=== PATIENT | female | born 1950 | race Caucasian/White ===

== ENCOUNTER 2018-04-20 07:02 | Day surgery (SDC) | payer MEDICARE, MEDICAID ==
[~2018-04-20] VITALS: Ht 160 cm; Wt 92.5 kg
[2018-04-20] VITALS (10 sets, daily range): BP systolic 136–196; BP diastolic 73–104
[~2018-04-20 07:02] MED LIST: ACET-819 PO; ARGI500C2 PO; ASCO-262 PO; CALC-685 PO; FLUO40CA PO; HYDR-3583 PO; LISI10TA PO; LVT.1T PO; MELO-195 PO; MULT1CAP27 PO; OMG1KC PO; OXYB10TA PO; PRAS1TAB2 PO; ZINC50TA49 PO
[2018-04-20] MEDS ORDERED: LIDOCAINE 1% INJ 20 ML 20 ML VIAL ONE (07:07)
[2018-04-20] MEDS ORDERED: NS IV 1000 ML 1,000 ML ONE (07:07)
[2018-04-20] MEDS ORDERED: HEParin (CATH LAB) 2,000 ML IV ONE (07:07)
[2018-04-20] MEDS ORDERED: NS IV 1000 ML 1,000 ML IV SCH ×2 (07:15→09:14)
[2018-04-20 07:43] LABS: HEMOGLOBIN 13.2 G/DL (11.5-16.0); MEAN PLATELET VOLUME 10.9 FL (7.4-10.4); RED BLOOD COUNT 4.39 10^6/uL (4.35-5.85); WHITE BLOOD COUNT 6.7 10^3/uL (4.3-11.0)
[2018-04-20] MEDS ORDERED: IBUP-2185 PO (07:46)
[2018-04-20] MEDS ORDERED: RANI-515 PO (07:46)
[2018-04-20] MEDS ORDERED: LISI1TAB10 PO (07:46)
[2018-04-20] MEDS ORDERED: ATOR40TA70 PO (07:46)
[2018-04-20] MEDS ORDERED: LEVO112T55 PO (07:46)
[2018-04-20] MEDS ORDERED: BIOT10005 PO (07:46)
[2018-04-20] MEDS ORDERED: ASPI-983 PO (07:46)
[2018-04-20] MEDS ORDERED: FEXO-192 PO (07:46)
[2018-04-20] MEDS ORDERED: NF-SOLIF5T PO (07:46)
[2018-04-20] MEDS ORDERED: ACET-2055 PO (07:46)
[2018-04-20] MEDS ORDERED: SERT25TA5 PO (07:46)
[2018-04-20] MEDS ORDERED: COLE1TAB PO (07:46)
[2018-04-20 08:04] LABS: ALANINE AMINOTRANSFERASE 14 U/L (0-55); ALBUMIN 4.6 GM/DL (3.2-4.5); ALKALINE PHOSPHATASE 66 U/L (40-136); BILIRUBIN,TOTAL 0.8 MG/DL (0.1-1.0); BUN/CREATININE RATIO 17; CALCIUM 9.1 MG/DL (8.5-10.1); CARBON DIOXIDE 25 MMOL/L (21-32); CHLORIDE 105 MMOL/L (98-107); CHOLESTEROL 127 MG/DL (< 200); CREATININE SERUM 0.77 MG/DL (0.60-1.30); GFR ESTIMATED > 60; GLUCOSE 92 MG/DL (70-105); HDL CHOLESTEROL 40 MG/DL (40-60); POTASSIUM 3.7 MMOL/L (3.6-5.0); SODIUM 142 MMOL/L (135-145); TOTAL PROTEIN 7.3 GM/DL (6.4-8.2); TRIGLYCERIDES 191 MG/DL (<150); VLDL CHOLESTEROL 38 MG/DL (5-40)
[2018-04-20 08:07] LABS: INR 0.9 (0.8-1.4); PROTHROMBIN TIME PATIENT 12.6 SEC (12.2-14.7)
--- OUTSIDE RECORDS SUMMARY | 2018-04-20 08:16 | XMS REPORT ---
Author Author ETHAN MARTINO [facility] Address [address] [place] [address] Care Team Providers Care Maintenance Team Leader Name Role Phone ETHAN MARTINO Unavailable PROBLEMS Type Condition ICD9-CM Code LJP10-SF Code Onset Dates Condition Status SNOMED Code Problem Irritable bowel syndrome with diarrhea K58.0 Active 128321402 Problem Gastroesophageal reflux disease without esophagitis K21.9 Active 835916610 Problem Sciatica of left side M54.32 Active 16917324 Problem PVD (peripheral vascular disease) I73.9 Active 956518573 Problem Essential (primary) hypertension I10 Active 05934297 Problem Other chronic pain G89.29 Active 50869962 Problem Acquired hypothyroidism E03.9 Active 612187199 Problem Hypertriglyceridemia E78.1 Active 254449855 Problem Pain in joint of right shoulder M25.511 Active 850074593 Problem Recurrent major depressive disorder, in partial remission F33.41 Active 23183017 Problem Overactive bladder N32.81 Active 689053186 ALLERGIES No Information ENCOUNTERS Encounter Location Date Diagnosis [facility] [address] [place] [address] 13521- 4892 Feb, Bradycardia R00.1 ; Hypotension I95.9 ; Family history of heart disease Z82.49 and Essential (primary) hypertension I10 [facility] [address] [place] [address] 68140- 1444 Feb, Hypertriglyceridemia E78.1 ; Acquired hypothyroidism E03.9 ; Overactive bladder N32.81 ; Essential (primary) hypertension I10 and Recurrent major depressive disorder, in partial remission F33.41 [facility] [address] [place] [address] 62060- 4901 Jan, [facility] [id number] [place] [address] 09310- 5241 Oct, [facility] [address], [place] [address] 5499 Oct, [facility] [id number] [place] [address] 56573- 1817 Oct, Overactive bladder N32.81 [facility] [id number] [place] [address] 83477- 0969 Sep, [facility] [id number] [place] [address] 23652- 2907 Sep, [facility] [id number] [place] [address] 43745- 9930 Sep, Essential (primary) hypertension I10 ; Acquired hypothyroidism E03.9 ; Hypertriglyceridemia E78.1 ; Overactive bladder N32.81 ; Irritable bowel syndrome with diarrhea K58.0 ; Recurrent major depressive disorder, in partial remission F33.41 ; Pain in right shoulder M25.511 ; Other chronic pain G89.29 ; Low back pain M54.5 ; Reactive airway disease that is not asthma R09.89 and Encounter for immunization Z23 [facility] [id number] [place] [address] 69556- 7331 August, Hypertriglyceridemia E78.1 [facility] [id number] [place] [address] 41365 -3563 Jun, Cough R05 and Bronchitis J40 [facility] [id number] [place] [address] 49185- 4243 Jun, [facility] [id number] [place] [address] 01502- 7222 Jan, Hypothyroid E03.9 ; Depression F32.9 ; PVD (peripheral vascular disease) I73.9 ; Essential (primary) hypertension I10 ; Irritable bowel syndrome with diarrhea K58.0 ; Gastroesophageal reflux disease without esophagitis K21.9 ; Hypertriglyceridemia E78.1 ; Sciatica of left side M54.32 ; Elevated hemoglobin A1c R73.09 ; Overactive bladder N32.81 and Encounter for immunization Z23 [facility] [id number] [place] [address] 64916- 2002 Sep, [facility] [address] 11809- 2835 Sep, Hypothyroid E03.9 ; Depression F32.9 ; PVD (peripheral vascular disease) I73.9 ; Hypertension I10 ; Essential (primary) hypertension I10 ; Edema R60.9 ; Irritable bowel syndrome with diarrhea K58.0 ; Gastroesophageal reflux disease without esophagitis K21.9 ; Pain in joint of right shoulder M25.511 ; Hypercholesterolemia E78.0 and Tooth abscess K04.7 [facility] [address] 35395- 2426 August, Essential (primary) hypertension I10 ; Hypothyroid E03.9 ; Irritable bowel syndrome with diarrhea K58.0 and Hypercholesterolemia E78.0 [facility] [id number] [place] [address] 70826- 0093 May, Hypothyroid E03.9 ; PVD (peripheral vascular disease) I73.9 ; Hypertension I10 ; Irritable bowel syndrome with diarrhea K58.0 ; Edema R60.9 ; Essential (primary) hypertension I10 ; Hypercholesterolemia E78.0 ; Depression F32.9 and Gastroesophageal reflux disease without esophagitis K21.9 [facility] [id number] [place] [address] 77694- 2926 Mar, [facility] [id number] [place] [address] 29540- 0034 Jan, [facility] [id number] [place] [address] 65646- 9988 30 Dec, 2015 Hypothyroid E03.9 ; Depression F32.9 ; Hypercholesterolemia E78.0 ; PVD (peripheral vascular disease) I73.9 ; Hypertension I10 ; Essential ( primary) hypertension I10 ; Edema R60.9 ; Sciatica of left side M54.32 ; Irritable bowel syndrome with diarrhea K58.0 and Encounter for immunization Z23 [facility] [address], [place] [address] 4912 Dec, [facility] [id number] [place] [address] 91603- 7309 Dec, [facility] [address] [place] [address] 09244- 8539 Dec, [facility] [id number] [place] [address] 28359- 3412 Dec, Adverse drug reaction, initial encounter T88.7XXA and Sciatica of left side M54.32 [facility] [id number] [place] [address] 46337- 5895 Nov, [facility] [id number] [place] [address] 68087- 8701 Nov, [facility] [id number] [place] [address] 71603- 8709 Nov, [facility] [id number] [place] [address] 54448- 2013 Oct, [facility] [id number] [place] [address] 41241- 4261 Oct, Sciatica of left side M54.32 and Irritable bowel syndrome with diarrhea K58.0 [facility] [address] [place] [address] 48835- 4483 Jun, Hypercholesterolemia E78.0 ; Hypothyroid E03.9 ; Essential ( primary) hypertension I10 ; Depression F32.9 ; PVD (peripheral vascular disease ) I73.9 ; Decubital ulcer L89.90 and Edema R60.9 [facility] [id number] [place] [address] 37978- 6401 May, [facility] [address], [place] [address]- 1163 May, PVD (peripheral vascular disease) I73.9 and Decubital ulcer L89.90 [facility] [id number] [place] [address] 39390- 3672 May, PVD (peripheral vascular disease) I73.9 ; Cellulitis L03.90 ; Hypothyroid E03.9 ; Hypercholesterolemia E78.0 ; Hypertension I10 and Depression F32.9 [facility] [id number] [place] [address] 72003- 8548 Jan, [facility] [address] 24273- 5356 Jan, [facility] [id number] [place] [address] 45629- 6830 Jan, HTN (hypertension) I10 ; Encounter for immunization Z23 ; Hypothyroid E03.9 ; Hypercholesterolemia E78.0 and Depression F32.9 [facility] [id number] [place] [address] [id number] Jan, Dental examination Z01.20 [facility] [id number] [place] [address] 70986- 0087 Oct, [facility] [id number] [place] [address] 38798- 9670 Oct, [facility] [id number] [place] [address] 72765- 9815 Oct, Hypothyroidism 244.9 ; Essential hypertension 401.9 ; Depression 311 ; Varicose ulcer (lower extremity) 454.0 and Hypercholesteremia 272.0 [facility] [id number] [place] [address] 44603- 9784 Jul, [facility] [id number] [place] [address] 83772- 3097 Jul, [facility] [id number] [place] [address] 27209- 4497 Feb, [facility] [id number] [place] [address] 15980- 7628 Feb, [facility] [address] [address] [address]- 1447 Feb, [facility] [place] [facility] [address] [id number] [place] [address]- 3304 Feb, [facility] [place] [facility] [address] [id number] [place] [address]- 0379 Feb, [facility] [place] [facility] [address] [id number] [place] [address]- 9296 Feb, [facility] [place] [facility] [address] [id number] [place] [address]- 5004 Nov, [facility] [place] [facility] [address] [id number] [place] [address]- 3850 Nov, [facility] [place] [facility] [address] [id number] [place] [address]- 2256 Nov, [facility] [place] [facility] [address] [id number] [place] [address]- 2399 Nov, [facility] [place] [facility] [address] [id number] [place] [address]- 5166 Nov, [facility] [place] [facility] [address] [id number] [place] [address]- 9617 Nov, [facility] [place] [facility] [address] [id number] [place] [address]- 8412 Nov, [facility] [place] [facility] [address] [id number] [place] [address]- 8584 Nov, [facility] [place] [facility] [address] [id number] [place] [address]- 4543 Nov, [facility] [place] [facility] [address] [id number] [place] [address]- 3389 Nov, [facility] [place] [facility] [address] [id number] [place] [address]- 6755 August, [facility] [place] [facility] [address] [id number] [place] [address]- 4294 August, [facility] [place] [facility] [address] [id number] [place] [address]- 9803 Oct, [facility] [address] [id number] [place] [address]- 6047 Jul, [facility] [address] [id number] [place] [address]- 2790 Jul, [facility] [address] [id number] [place] [address]- 0061 Jul, [facility] [address] [id number] [place] [address]- 5349 Jul, [facility] [address] [id number] [place] [address]- 2239 Jun, [facility] [address] [id number] [place] [address]- 9753 Jun, [facility] [address] [id number] [place] [address]- 5666 Jun, [facility] [address] [id number] [place] [address]- [address] Jun, [facility] [address] [id number] [place] [address]- 1605 Jun, [facility] [address] [id number] [place] [address]- 2143 May, [facility] [address] [id number] [place] [address]- 1460 Apr, [facility] [address] [id number] [place] [address]- 7898 Apr, [facility] [address] [id number] [place] [address]- 2893 Apr, [facility] [address] [id number] [place] [address]- 9369 Apr, [facility] [address] [id number] [place] [address]- 1391 Mar, [facility] [place] [facility] [address] [id number] [place] [address]- 9866 19 Mar, 2012 [facility] [place] [facility] [address] [id number] [place] [address]- 6496 18 Mar, 2012 [facility] [place] [facility] [address] [id number] [place] [address]- 7976 18 Mar, 2012 [facility] [place] [facility] [address] [id number] [place] [address]- 8226 14 Mar, 2012 [facility] [place] [facility] [address] [id number] [place] [address]- 4486 14 Mar, 2012 [facility] [place] [facility] [address] [id number] [place] [address]- 3216 Mar, [facility] [place] [facility] [address] [id number] [place] [address]- 4309 Mar, [facility] [place] [facility] [address] [id number] [place] [address]- 5685 Mar, [facility] [place] [facility] [address] [id number] [place] [address]- 9457 Mar, [facility] [place] [facility] [address] [id number] [place] [address]- 0322 Mar, [facility] [place] [facility] [address] [id number] [place] [address]- 3359 Mar, [facility] [place] [facility] [address] [id number] [place] [address]- 3648 Mar, [facility] [place] [facility] [address] [id number] [place] [address]- 2036 Feb, [facility] [place] [facility] [address] [id number] [place] [address]- 0135 Feb, [facility] [place] [facility] [address] [id number] [place] [address]- 2673 Feb, [facility] [place] [facility] [address] [id number] [place] [address]- 0927 Feb, [facility] [place] [facility] [address] [id number] [place] [address]- 7124 Feb, [facility] [place] [facility] [address] [id number] [place] [address]- 7893 Feb, [facility] [place] [facility] [address] [id number] [place] [address]- 9397 Feb, [facility] [place] [facility] [address] [id number] [place] [address]- 9712 Feb, [facility] [place] [facility] [address] [id number] [place] [address]- 4664 Feb, [facility] [place] [facility] [address] [id number] [place] [address]- 5295 Feb, [facility] [place] [facility] [address] [id number] [place] [address]- 6834 Feb, [facility] [place] [facility] [address] [id number] [place] [address]- 6869 Feb, [facility] [place] [facility] [address] [id number] [place] [address]- 5892 Feb, [facility] [place] [facility] [address] [facility] [id number] [place] [address]- 5127 Feb, [facility] [place] [facility] [address] [id number] [place] [address]- 4907 Jan, [facility] [place] [facility] [address] [id number] [place] [address]- 0395 Jan, [facility] [place] [facility] [address] [id number] [place] [address]- 0943 Jan, [facility] [place] [facility] [address] [id number] [place] [address]- 8547 Jan, [facility] [place] [facility] [address] [id number] [place] [address]- 6780 Jan, [facility] [id number] [address]- 3474 Jan, [facility] [address] [place] [address]- 5198 Jan, [facility] [address], [place] [address]- 2038 Oct, [facility] [address], [place] [address]- 7850 Oct, [facility] [address] [place] [address]- 8414 Oct, [facility] [address], [place] [address]- 6736 Jul, [facility] [address], [place] [address]- 1617 Jan, [facility] [address], [place] [address]- 8966 Jul, IMMUNIZATIONS No Known Immunizations SOCIAL HISTORY Never Assessed REASON FOR VISIT request return call PLAN OF CARE VITAL SIGNS MEDICATIONS Medication Instructions Dosage Frequency Start Date End Date Duration Status Lisinopril-Hydrochlorothiazide 20-25 mg Orally every other day TAKE ONE TABLET BY MOUTH ONCE DAILY Active RESULTS No Results PROCEDURES No Known procedures INSTRUCTIONS MEDICATIONS ADMINISTERED No Known Medications MEDICAL (GENERAL) HISTORY Type Description Date Medical History Hypothyroidism Medical History hypertension Medical History asthma Surgical History cholecystectomy Surgical History tubal ligation Surgical History vein ligation Surgical History thyroidectomy, complete Hospitalization History surgeries
--- OUTSIDE RECORDS SUMMARY | 2018-04-20 08:16 | XMS REPORT ---
Author Author [facility] Address [address] [place] [address] Care Team Providers Care Flight Attendant Name Role Phone ETHAN MARTINO Unavailable PROBLEMS Type Condition ICD9-CM Code NDC40-XQ Code Onset Dates Condition Status SNOMED Code Problem Irritable bowel syndrome with diarrhea K58.0 Active 198307508 Problem Gastroesophageal reflux disease without esophagitis K21.9 Active 992919240 Problem Sciatica of left side M54.32 Active 68302386 Problem PVD (peripheral vascular disease) I73.9 Active 543411979 Problem Essential (primary) hypertension I10 Active 50497097 Problem Other chronic pain G89.29 Active 32975808 Problem Acquired hypothyroidism E03.9 Active 898489063 Problem Hypertriglyceridemia E78.1 Active 187948062 Problem Pain in joint of right shoulder M25.511 Active 974694991 Problem Recurrent major depressive disorder, in partial remission F33.41 Active 25929818 Problem Overactive bladder N32.81 Active 965251792 ALLERGIES Substance Reaction Event Type Date Status Vistaril hives Drug Allergy Feb, Active Vaseline itching Drug Allergy Feb, Active Neosporin hives Drug Allergy Feb, Active Nabumetone hives/rash Drug Allergy Feb, Active ENCOUNTERS Encounter Location Date Diagnosis [facility] [id number] [place] [address] 17912- 8680 Feb, Hypertriglyceridemia E78.1 ; Acquired hypothyroidism E03.9 ; Overactive bladder N32.81 ; Essential (primary) hypertension I10 and Recurrent major depressive disorder, in partial remission F33.41 [facility] [id number] [place] [address] 61677- 2581 Jan, [facility] [id number] [place] [address] 06364- 2393 Oct, [facility] [address] [address] 6962 Oct, [facility] [id number] [place] [address] 31959- 5541 Oct, Overactive bladder N32.81 [facility] [address] [place] [address] 90318- 7787 Sep, [facility] [id number] [place] [address] 37817- 8625 Sep, [facility] [id number] [place] [address] 24547- 8282 Sep, Essential (primary) hypertension I10 ; Acquired hypothyroidism E03.9 ; Hypertriglyceridemia E78.1 ; Overactive bladder N32.81 ; Irritable bowel syndrome with diarrhea K58.0 ; Recurrent major depressive disorder, in partial remission F33.41 ; Pain in right shoulder M25.511 ; Other chronic pain G89.29 ; Low back pain M54.5 ; Reactive airway disease that is not asthma R09.89 and Encounter for immunization Z23 [place] [id number] [place] [address] 01277- 3082 August, Hypertriglyceridemia E78.1 [facility] [id number] [place] [address] 15323 -6587 Jun, Cough R05 and Bronchitis J40 [place] [id number] [place] [address] 87415- 0599 Jun, [place] [address] [place] [address] 15385- 2167 Jan, Hypothyroid E03.9 ; Depression F32.9 ; PVD (peripheral vascular disease) I73.9 ; Essential (primary) hypertension I10 ; Irritable bowel syndrome with diarrhea K58.0 ; Gastroesophageal reflux disease without esophagitis K21.9 ; Hypertriglyceridemia E78.1 ; Sciatica of left side M54.32 ; Elevated hemoglobin A1c R73.09 ; Overactive bladder N32.81 and Encounter for immunization Z23 [place] [id number] [place] [address] 60008- 5183 Sep, [place] [address] 26018- 6527 Sep, Hypothyroid E03.9 ; Depression F32.9 ; PVD (peripheral vascular disease) I73.9 ; Hypertension I10 ; Essential (primary) hypertension I10 ; Edema R60.9 ; Irritable bowel syndrome with diarrhea K58.0 ; Gastroesophageal reflux disease without esophagitis K21.9 ; Pain in joint of right shoulder M25.511 ; Hypercholesterolemia E78.0 and Tooth abscess K04.7 [place] [address] 73303- 0420 August, Essential (primary) hypertension I10 ; Hypothyroid E03.9 ; Irritable bowel syndrome with diarrhea K58.0 and Hypercholesterolemia E78.0 [place] [id number] [place] [address] 58144- 2719 May, Hypothyroid E03.9 ; PVD (peripheral vascular disease) I73.9 ; Hypertension I10 ; Irritable bowel syndrome with diarrhea K58.0 ; Edema R60.9 ; Essential (primary) hypertension I10 ; Hypercholesterolemia E78.0 ; Depression F32.9 and Gastroesophageal reflux disease without esophagitis K21.9 [place] [id number] [place] [address] 26628- 7433 Mar, [place] [id number] [place] [address] 25919- 1699 Jan, [place] [id number] [place] [address] 10618- 3630 30 Dec, 2015 Hypothyroid E03.9 ; Depression F32.9 ; Hypercholesterolemia E78.0 ; PVD (peripheral vascular disease) I73.9 ; Hypertension I10 ; Essential ( primary) hypertension I10 ; Edema R60.9 ; Sciatica of left side M54.32 ; Irritable bowel syndrome with diarrhea K58.0 and Encounter for immunization Z23 [place] [address] [place] [address] 39[address] Dec, [facility] [address] [address] 3584 Dec, [facility] [address] [address]- 0786 Dec, [facility] [id number] [place] [address] 48916- 6965 Dec, Adverse drug reaction, initial encounter T88.7XXA and Sciatica of left side M54.32 [facility] [address] [address]- 8673 Nov, [facility] [id number] [place] [address] 98654- 8181 Nov, [facility] [id number] [place] [address] 07708- 2640 Nov, [facility] [id number] [place] [address] 54673- 2048 Oct, [facility] [address] [place] [address] 03379- 4048 Oct, Sciatica of left side M54.32 and Irritable bowel syndrome with diarrhea K58.0 [facility] [address] [address]- 5949 Jun, Hypercholesterolemia E78.0 ; Hypothyroid E03.9 ; Essential ( primary) hypertension I10 ; Depression F32.9 ; PVD (peripheral vascular disease ) I73.9 ; Decubital ulcer L89.90 and Edema R60.9 [facility] [address] [address]- 8090 May, [facility] [address] [address]- 7514 May, PVD (peripheral vascular disease) I73.9 and Decubital ulcer L89.90 [facility] [id number] [place] [address] 88092- 2412 May, PVD (peripheral vascular disease) I73.9 ; Cellulitis L03.90 ; Hypothyroid E03.9 ; Hypercholesterolemia E78.0 ; Hypertension I10 and Depression F32.9 [facility] [id number] [place] [address] 15622- 3163 Jan, [facility] [address] 39770- 4063 Jan, [facility] [address] 36144- 9656 Jan, HTN (hypertension) I10 ; Encounter for immunization Z23 ; Hypothyroid E03.9 ; Hypercholesterolemia E78.0 and Depression F32.9 [facility] [id number] [place] [address] [id number] Jan, Dental examination Z01.20 [facility] [address] 33639- 0521 Oct, [facility] [address] 86721- 4926 Oct, [facility] [id number] [place] [address] 69685- 1920 Oct, Hypothyroidism 244.9 ; Essential hypertension 401.9 ; Depression 311 ; Varicose ulcer (lower extremity) 454.0 and Hypercholesteremia 272.0 [facility] [id number] [place] [address] 07408- 9408 Jul, [facility] [address] 71870- 9973 Jul, [facility] [address] 84113- 0302 Feb, [facility] [id number] [place] [address] 70925- 3936 Feb, [facility] [address] 58787- 9879 Feb, [facility] [place] [facility] [address] [id number] [place] [address]- 4765 Feb, [facility] [place] [facility] [address] [id number] [place] [address]- 6840 Feb, [facility] [place] [facility] [address] [id number] [place] [address]- 4620 Feb, [facility] [place] [facility] [address] [id number] [place] [address]- 2562 Nov, [facility] [place] [facility] [address] [id number] [place] [address]- 1384 Nov, [facility] [place] [facility] [address] [id number] [place] [address]- 9910 Nov, [facility] [place] [facility] [address] [id number] [place] [address]- 4012 Nov, [facility] [place] [facility] [address] [id number] [place] [address]- 9619 Nov, [facility] [place] [facility] [address] [id number] [place] [address]- 4335 Nov, [facility] [place] [facility] [address] [id number] [place] [address]- 5413 Nov, [facility] [place] [facility] [address] [id number] [place] [address]- 6399 Nov, [facility] [place] [facility] [address] [id number] [place] [address]- 5773 Nov, [facility] [place] [facility] [address] [id number] [place] [address]- 6042 Nov, [facility] [place] [facility] [address] [id number] [place] [address]- 2795 August, [facility] [place] [facility] [address] [id number] [place] [address]- 6623 August, [facility] [place] [facility] [address] [id number] [place] [address]- 2922 Oct, [facility] [address] [id number] [place] [address]- 6603 15 Jul, 2012 [facility] [place] [facility] [address] [id number] [place] [address]- 8776 Jul, [facility] [address] [id number] [place] [address]- 9915 Jul, [facility] [address] [id number] [place] [address]- 7555 Jul, [facility] [address] [id number] [place] [address]- 5810 Jun, [facility] [address] [id number] [place] [address]- 2445 Jun, [facility] [address] [id number] [place] [address]- 0170 Jun, [facility] [address] [id number] [place] [address]- 2375 Jun, [facility] [address] [id number] [place] [address]- 3405 Jun, [facility] [address] [id number] [place] [address]- 5503 May, [facility] [address] [id number] [place] [address]- 2589 Apr, [facility] [address] [id number] [place] [address]- 8235 Apr, [facility] [place] [facility] [address] [id number] [place] [address]- 2758 Apr, [facility] [place] [facility] [address] [id number] [place] [address]- 9199 Apr, [facility] [place] [facility] [address] [id number] [place] [address]- 4989 Mar, [facility] [place] [facility] [address] [id number] [place] 2890 Mar, [facility] [place] [facility] [address] [id number] [place] [address]- 0526 Mar, [facility] [place] [facility] [address] [id number] [place] [address]- 0290 Mar, [facility] [place] [facility] [address] [id number] [place] [address]- 2025 Mar, [facility] [place] [facility] [address] [id number] [place] [address]- 5665 14 Mar, 2012 [facility] [place] [facility] [address] [id number] [place] [address]- 8537 Mar, [facility] [place] [facility] [address] [id number] [place] [address]- 3016 Mar, [facility] [place] [facility] [address] [id number] [place] [address]- 4482 Mar, [facility] [place] [facility] [address] [id number] [place] [address]- 8604 Mar, [facility] [place] [facility] [address] [id number] [place] [address]- 0246 Mar, [facility] [place] [facility] [address] [id number] [place] [address]- 8081 Mar, [facility] [place] [facility] [address] [id number] [address]- 0983 Mar, [facility] [place] [facility] [address] [id number] [place] [address]- 8749 Feb, [facility] [place] [facility] [address] [id number] [place] [address]- 7626 Feb, [facility] [place] [facility] [address] [facility] [id number] [place] [address]- 6568 Feb, [facility] [place] [facility] [address] [id number] [place] [address]- 4024 Feb, [facility] [place] [facility] [address] [id number] [place] [address]- 9851 Feb, [facility] [place] [facility] [address] [id number] [place] [address]- 6964 Feb, [facility] [place] [facility] [address] [id number] [place] [address]- 3703 Feb, [facility] [place] [facility] [address] [id number] [place] [address]- 1954 Feb, [facility] [place] [facility] [address] [id number] [place] [address]- 3166 Feb, [facility] [place] [facility] [address] [id number] [place] [address]- 9180 Feb, [facility] [place] [facility] [address] [facility] [id number] [place] [address]- 5018 Feb, [facility] [place] [facility] [address] [id number] [place] [address]- 6600 Feb, [facility] [place] [facility] [address] [facility] [id number] [place] [address]- 4149 Feb, [facility] [place] [facility] [address] [facility] [id number] [place] [address]- 5793 Feb, [facility] [place] [facility] [address] [facility] [id number] [place] [address]- 7902 Jan, [facility] [place] [facility] [address] [id number] [place] [address]- 0571 Jan, [facility] [place] [facility] [address] [id number] [place] [address]- 2468 Jan, [facility] [place] [facility] [address] [facility] [id number] [place] [address]- 0429 Jan, [facility] [place] [facility] [address] [facility] [id number] [place] [address]- 4311 Jan, [facility] [address] [facility] [id number] [address]- 2546 Jan, [facility] [address] [address] 2546 Jan, [facility] [address] [address]- 1836 Oct, [facility] [address], [place] [address]- 5256 Oct, [facility] [address], [place] [address]- 5067 Oct, [facility] [address], [place] [address]- 9896 Jul, [facility] [address] [address]- 7625 Jan, [facility] [address] [address]- 3616 Jul, IMMUNIZATIONS No Known Immunizations SOCIAL HISTORY Never Assessed REASON FOR VISIT New Provider Visit Thierno [facility]IG[facility] PLAN OF CARE Activity Details Follow Up w/ PCP, prn Reason:BP concerns and/or light-headed/dizzy spells VITAL SIGNS Height 62 in 2018-02-10 Weight 206.7 lbs 2018-02-10 Temperature 97.4 degrees Fahrenheit 2018-02-10 Heart Rate 55 bpm 2018-02-10 Respiratory Rate 20 2018-02-10 BMI 37.80 kg/m2 2018-02-10 Blood pressure systolic 118 mmHg 2018-02-10 Blood pressure diastolic 62 mmHg 2018-02-10 MEDICATIONS Medication Instructions Dosage Frequency Start Date End Date Duration Status Lisinopril-Hydrochlorothiazide 20-25 mg Orally Once a day TAKE ONE TABLET BY MOUTH ONCE DAILY 24h 90 days Active Multi For Her 50+ Orally Once a day 1 tablet 24h Active VESIcare 5 mg Orally Once a day 1 tablet 24h Oct, Active Atorvastatin Calcium 40 mg Orally Once a day 1 tablet 24h 31 Jan, 2017 Active Albuterol Sulfate (2.5 MG/3ML) 0.083% Inhalation Three times a day 3 ml as needed 8h Sep, 12 months Active Allergy Relief 180 MG Orally Once a day 1 tablet as needed 24h Active Levothyroxine Sodium 112 MCG Orally Once a day 1 tab 24h 30 days Active Ibuprofen 200 MG Orally 2 times a day 2 tablets as needed 12h Active Ranitidine HCl 150 MG Orally Once a day 1 capsule at bedtime 24h 90 days Active Arthritis Pain Relief 650 MG Orally Once a day 2 tabs 24h Active Colestipol HCl 1 GM Orally Once a day 2 tablets 24h 30 Dec, 2015 Active Sertraline HCl 25 MG Orally Once a day 1 tablet 24h 90 Active RESULTS No Results PROCEDURES Procedure Date Ordered Result Body Site [facility] VISIT ESTABLISHED PATIENT Feb 10, 2018 INSTRUCTIONS MEDICATIONS ADMINISTERED No Known Medications MEDICAL (GENERAL) HISTORY Type Description Date Medical History Hypothyroidism Medical History hypertension Medical History asthma Surgical History cholecystectomy Surgical History tubal ligation Surgical History vein ligation Surgical History thyroidectomy, complete Hospitalization History surgeries
--- OUTSIDE RECORDS SUMMARY | 2018-04-20 08:17 | XMS REPORT ---
Author Author HARITHA CHAMPION [facility] Address [address] [place] [address] Care Team Providers Care Flagman Name Role Phone AKIRAHARITHA Unavailable PROBLEMS Type Condition ICD9-CM Code BHB42-SN Code Onset Dates Condition Status SNOMED Code Problem Irritable bowel syndrome with diarrhea K58.0 Active 219545897 Problem Gastroesophageal reflux disease without esophagitis K21.9 Active 774576940 Problem Sciatica of left side M54.32 Active 89653127 Problem PVD (peripheral vascular disease) I73.9 Active 373843271 Problem Essential (primary) hypertension I10 Active 04795274 Problem Other chronic pain G89.29 Active 78040263 Problem Acquired hypothyroidism E03.9 Active 705401655 Problem Hypertriglyceridemia E78.1 Active 461368265 Problem Pain in joint of right shoulder M25.511 Active 908253231 Problem Recurrent major depressive disorder, in partial remission F33.41 Active 42565542 Problem Overactive bladder N32.81 Active 606849553 ALLERGIES No Information ENCOUNTERS Encounter Location Date Diagnosis [facility] [id number] [place] [address] 20886- 6336 Feb, [facility] [id number] [place] [address] 53769- 5915 Jan, [facility] [id number] [place] [address] 62887- 9407 Oct, [facility] [id number] [place] [address] 53218- 9174 Oct, [facility] [id number] [place] [address] 93194- 0999 Oct, Overactive bladder N32.81 [facility] [id number] [place] [address] 83891- 8565 Sep, [place] [id number] [place] [address] 30977- 7061 Sep, [place] [address] 52367- 3406 Sep, Essential (primary) hypertension I10 ; Acquired hypothyroidism E03.9 ; Hypertriglyceridemia E78.1 ; Overactive bladder N32.81 ; Irritable bowel syndrome with diarrhea K58.0 ; Recurrent major depressive disorder, in partial remission F33.41 ; Pain in right shoulder M25.511 ; Other chronic pain G89.29 ; Low back pain M54.5 ; Reactive airway disease that is not asthma R09.89 and Encounter for immunization Z23 [place] [id number] [place] [address] 18914- 6928 August, Hypertriglyceridemia E78.1 [facility] [address] [place] [address] 30822 -1084 Jun, Cough R05 and Bronchitis J40 [place] [id number] [place] [address] 93328- 3586 Jun, [place] [id number] [place] [address] 08794- 4671 Jan, Hypothyroid E03.9 ; Depression F32.9 ; PVD (peripheral vascular disease) I73.9 ; Essential (primary) hypertension I10 ; Irritable bowel syndrome with diarrhea K58.0 ; Gastroesophageal reflux disease without esophagitis K21.9 ; Hypertriglyceridemia E78.1 ; Sciatica of left side M54.32 ; Elevated hemoglobin A1c R73.09 ; Overactive bladder N32.81 and Encounter for immunization Z23 [place] [id number] [place] [address] 37151- 5213 Sep, [place] [address] 31171- 0825 Sep, Hypothyroid E03.9 ; Depression F32.9 ; PVD (peripheral vascular disease) I73.9 ; Hypertension I10 ; Essential (primary) hypertension I10 ; Edema R60.9 ; Irritable bowel syndrome with diarrhea K58.0 ; Gastroesophageal reflux disease without esophagitis K21.9 ; Pain in joint of right shoulder M25.511 ; Hypercholesterolemia E78.0 and Tooth abscess K04.7 [place] [id number] [place] [address] 30659- 6884 August, Essential (primary) hypertension I10 ; Hypothyroid E03.9 ; Irritable bowel syndrome with diarrhea K58.0 and Hypercholesterolemia E78.0 [place] [address] 24794- 5303 May, Hypothyroid E03.9 ; PVD (peripheral vascular disease) I73.9 ; Hypertension I10 ; Irritable bowel syndrome with diarrhea K58.0 ; Edema R60.9 ; Essential (primary) hypertension I10 ; Hypercholesterolemia E78.0 ; Depression F32.9 and Gastroesophageal reflux disease without esophagitis K21.9 [place] [address] 45246- 4993 Mar, [place] [address] 31270- 2990 Jan, [place] [address] 10124- 6786 Dec, Hypothyroid E03.9 ; Depression F32.9 ; Hypercholesterolemia E78.0 ; PVD (peripheral vascular disease) I73.9 ; Hypertension I10 ; Essential ( primary) hypertension I10 ; Edema R60.9 ; Sciatica of left side M54.32 ; Irritable bowel syndrome with diarrhea K58.0 and Encounter for immunization Z23 [place] [id number] [place] [address] 22626- 2940 Dec, [place] [address] 17074- 3659 Dec, [place] [id number] [place] [address] 83524- 6579 Dec, [place] [address] 76295- 9880 Dec, Adverse drug reaction, initial encounter T88.7XXA and Sciatica of left side M54.32 [place] [id number] [place] [address] 23808- 5661 Nov, [facility] [id number] [place] [address] 26628- 3902 Nov, [place] [address] 80956- 0967 Nov, [place] [id number] [place] [address] 55780- 9138 Oct, [place] [id number] [place] [address] 05385- 1322 Oct, Sciatica of left side M54.32 and Irritable bowel syndrome with diarrhea K58.0 [place] [id number] [place] [address] 35435- 2687 Jun, Hypercholesterolemia E78.0 ; Hypothyroid E03.9 ; Essential ( primary) hypertension I10 ; Depression F32.9 ; PVD (peripheral vascular disease ) I73.9 ; Decubital ulcer L89.90 and Edema R60.9 [place] [id number] [place] [address] 63058- 8643 May, [place] [id number] [place] [address] 81009- 4821 May, PVD (peripheral vascular disease) I73.9 and Decubital ulcer L89.90 [place] [id number] [place] [address] 53786- 0860 May, PVD (peripheral vascular disease) I73.9 ; Cellulitis L03.90 ; Hypothyroid E03.9 ; Hypercholesterolemia E78.0 ; Hypertension I10 and Depression F32.9 [place] [id number] [place] [address] 49366- 5397 Jan, [place] [id number] [place] [address] 14707- 5619 Jan, [facility] [address] 21022- 3110 Jan, HTN (hypertension) I10 ; Encounter for immunization Z23 ; Hypothyroid E03.9 ; Hypercholesterolemia E78.0 and Depression F32.9 [facility] [place] [facility] [id number] [place] [address] [id number] Jan, Dental examination Z01.20 [facility] [address] 88308- 3448 Oct, [facility] [address] 41753- 5305 Oct, [facility] [address] 82237- 4349 Oct, Hypothyroidism 244.9 ; Essential hypertension 401.9 ; Depression 311 ; Varicose ulcer (lower extremity) 454.0 and Hypercholesteremia 272.0 [facility] [address] 07276- 9943 Jul, [facility] [address] 13299- 7782 Jul, [facility] [id number] [place] [address] 83255- 6697 Feb, [facility] [id number] [place] [address] 01974- 6706 Feb, [facility] [id number] [place] [address] 94007- 0654 Feb, [facility] [address] 13031- 3935 Feb, [facility] [id number] [place] [address] 65036- 8691 Feb, [facility] [address] 70045- 3728 Feb, [facility] [place] [facility] [address] [id number] [place] [address]- 5059 Nov, [facility] [place] [facility] [address] [id number] [place] [address]- 1975 Nov, [facility] [place] [facility] [address] [id number] [place] [address]- 9620 Nov, [facility] [place] [facility] [address] [id number] [place] [address]- 2967 Nov, [facility] [place] [facility] [address] [id number] [place] [address]- 8308 Nov, [facility] [place] [facility] [address] [id number] [place] [address]- 2142 Nov, [facility] [place] [facility] [address] [id number] [place] [address]- 6853 Nov, [facility] [place] [facility] [address] [id number] [place] [address]- 7211 Nov, [facility] [place] [facility] [address] [id number] [place] [address]- 1526 Nov, [facility] [place] [facility] [address] [id number] [place] [address]- 5681 Nov, [facility] [place] [facility] [address] [id number] [place] [address]- 2843 August, [facility] [place] [facility] [address] [id number] [place] [address]- 3389 August, [facility] [place] [facility] [address] [id number] [place] [address]- 7963 Oct, [facility] [place] [facility] [address] [id number] [place] [address]- 5780 Jul, [facility] [place] [facility] [address] [id number] [place] [address]- 6918 Jul, [facility] [place] [facility] [address] [id number] [place] [address]- 5825 05 Jul, 2012 [facility] [address] [id number] [place] [address]- 5478 Jul, [facility] [address] [id number] [place] [address]- 1345 Jun, [facility] [address] [id number] [place] [address]- 7361 Jun, [facility] [address] [id number] [place] [address]- 4787 Jun, [facility] [address] [id number] [place] [address]- 9577 Jun, [facility] [address] [id number] [place] [address]- 6356 Jun, [facility] [address] [id number] [place] [address]- 2686 May, [facility] [place] [facility] [address] [id number] [place] [address]- 5226 Apr, [facility] [place] [facility] [address] [id number] [place] [address]- 8864 Apr, [facility] [place] [facility] [address] [id number] [place] [address]- 8639 Apr, [facility] [place] [facility] [address] [id number] [place] [address]- 6548 Apr, [facility] [address] [id number] [place] [address]- 7391 Mar, [facility] [address] [id number] [place] [address]- 6749 Mar, [facility] [address] [id number] [place] [address]- 5476 Mar, [facility] [address] [id number] [place] [address]- 2127 Mar, [facility] [place] [facility] [address] [id number] [place] [address]- 8449 14 Mar, 2012 [facility] [place] [facility] [address] [id number] [place] [address]- 2826 14 Mar, 2012 [facility] [place] [facility] [address] [id number] [place] [address]- 2206 Mar, [facility] [place] [facility] [address] [id number] [place] [address]- 3876 Mar, [facility] [place] [facility] [address] [id number] [place] [address]- 2505 Mar, [facility] [place] [facility] [address] [id number] [place] [address]- 2956 Mar, [facility] [place] [facility] [address] [id number] [place] [address]- 7263 Mar, [facility] [place] [facility] [address] [id number] [place] [address]- 3393 Mar, [facility] [place] [facility] [address] [id number] [place] [address]- 1297 Mar, [facility] [place] [facility] [address] [id number] [place] [address]- 6492 Feb, [facility] [place] [facility] [address] [id number] [place] [address]- 2004 Feb, [facility] [place] [facility] [address] [id number], [place] [address]- 6737 Feb, [facility] [place] [facility] [address] [id number] [place] [address]- 9628 Feb, [facility] [place] [facility] [address] [id number] [place] [address]- 0092 Feb, [facility] [place] [facility] [address] [facility] [id number], [place] [address]- 1487 Feb, [facility] [place] [facility] [address] [id number], [place] [address]- 6418 Feb, [facility] [place] [facility] [address] [id number] [place] [address]- 0096 Feb, [facility] [place] [facility] [address] [id number] [place] [address]- 0819 Feb, [facility] [place] [facility] [address] [facility] [id number] [place] [address]- 7995 Feb, [facility] [place] [facility] [address] [id number] [place] [address]- 4042 Feb, [facility] [place] [facility] [address] [id number] [place] [address], [place] [address]- 5620 Feb, [facility] [place] [facility] [address] [facility] [id number] [place] [address]- 3542 Feb, [facility] [place] [facility] [address] [id number] [place] [address]- 1612 Feb, [facility] [place] [facility] [address] [facility] [id number] [place] [address]- 2573 Jan, [facility] [place] [facility] [address] [facility] [id number] [place] [address]- 6967 Jan, [facility] [place] [facility] [address] [facility] [id number] [place] [address]- 4315 Jan, [facility] [place] [facility] [address] [facility] [id number], [place] [address]- 0139 Jan, [facility] [place] [facility] [address] [facility] [id number], [place] [address]- 4511 Jan, [facility] [place] [facility] [address] [facility] [id number] [place] [address]- 9713 Jan, [facility] [place] [facility] [address] [facility] [id number] [place] [address]- 2238 Jan, [facility] [place] [facility] [address] [facility] [id number] [place] [address]- 8420 Oct, [facility] [place] [facility] [address] [facility] [id number] [place] [address]- 7806 Oct, [facility] [address] [facility] [id number], [place] [address]- 8435 Oct, [facility] [address] [id number], [place] [address]- 8260 Jul, [facility] [address] [facility] [id number], [place] [address]- 6168 Jan, [facility] [address] [facility] [id number], [place] [address]- 8005 Jul, IMMUNIZATIONS No Known Immunizations SOCIAL HISTORY Never Assessed REASON FOR VISIT Refill request PLAN OF CARE VITAL SIGNS MEDICATIONS Medication Instructions Dosage Frequency Start Date End Date Duration Status VESIcare 5 mg Orally Once a day 1 tablet 24h Oct, 30 day(s) Active RESULTS No Results PROCEDURES No Known procedures INSTRUCTIONS MEDICATIONS ADMINISTERED No Known Medications MEDICAL (GENERAL) HISTORY Type Description Date Medical History Hypothyroidism Medical History hypertension Medical History asthma Surgical History cholecystectomy Surgical History tubal ligation Surgical History vein ligation Surgical History thyroidectomy, complete Hospitalization History surgeries
--- OUTSIDE RECORDS SUMMARY | 2018-04-20 08:20 | XMS REPORT ---
Author Author BEAVERSSTACIE Edouard Organization [facility] Address [address] [place] [address] Care Team Providers Care Partridge Farmer Name Role Phone STACIE BEAVERS Unavailable PROBLEMS Type Condition ICD9-CM Code SFP33-JV Code Onset Dates Condition Status SNOMED Code Problem Irritable bowel syndrome with diarrhea K58.0 Active 362037048 Problem Gastroesophageal reflux disease without esophagitis K21.9 Active 240245258 Problem Sciatica of left side M54.32 Active 86260363 Problem PVD (peripheral vascular disease) I73.9 Active 561752607 Problem Essential (primary) hypertension I10 Active 76009056 Problem Other chronic pain G89.29 Active 39555106 Problem Acquired hypothyroidism E03.9 Active 347573258 Problem Hypertriglyceridemia E78.1 Active 861569368 Problem Pain in joint of right shoulder M25.511 Active 389239238 Problem Recurrent major depressive disorder, in partial remission F33.41 Active 97843663 Problem Overactive bladder N32.81 Active 132514580 ALLERGIES No Information ENCOUNTERS Encounter Location Date Diagnosis [facility] [address], [place] [address] Oct, [facility] [id number] [place] [address]73- 1836 Oct, [facility] [id number] [place] [address] 61142- 6650 Oct, Overactive bladder N32.81 [facility] [address] [place] [id number] [place] [address] 09204- 2234 Sep, [facility] [id number] [place] [address] 19220- 7486 Sep, [facility] [address] [place] [id number] [place] [address] 61332- 8259 Sep, Essential (primary) hypertension I10 ; Acquired hypothyroidism E03.9 ; Hypertriglyceridemia E78.1 ; Overactive bladder N32.81 ; Irritable bowel syndrome with diarrhea K58.0 ; Recurrent major depressive disorder, in partial remission F33.41 ; Pain in right shoulder M25.511 ; Other chronic pain G89.29 ; Low back pain M54.5 ; Reactive airway disease that is not asthma R09.89 and Encounter for immunization Z23 [place] [address] [address] August, Hypertriglyceridemia E78.1 [facility] [address] [address] Jun, Cough R05 and Bronchitis J40 [address] [address]- [address] Jun, [place] [address] [address]- 270[address] Jan, Hypothyroid E03.9 ; Depression F32.9 ; PVD (peripheral vascular disease) I73.9 ; Essential (primary) hypertension I10 ; Irritable bowel syndrome with diarrhea K58.0 ; Gastroesophageal reflux disease without esophagitis K21.9 ; Hypertriglyceridemia E78.1 ; Sciatica of left side M54.32 ; Elevated hemoglobin A1c R73.09 ; Overactive bladder N32.81 and Encounter for immunization Z23 [place] [address] [place] [id number] [place] [address] 55927- 9455 Sep, [place] [id number] [place] [address] 09841- 9452 Sep, Hypothyroid E03.9 ; Depression F32.9 ; PVD (peripheral vascular disease) I73.9 ; Hypertension I10 ; Essential (primary) hypertension I10 ; Edema R60.9 ; Irritable bowel syndrome with diarrhea K58.0 ; Gastroesophageal reflux disease without esophagitis K21.9 ; Pain in joint of right shoulder M25.511 ; Hypercholesterolemia E78.0 and Tooth abscess K04.7 [place] [id number] [place] [address] August, Essential (primary) hypertension I10 ; Hypothyroid E03.9 ; Irritable bowel syndrome with diarrhea K58.0 and Hypercholesterolemia E78.0 [place] [address] [place] [id number] [place] [address] 0[address]68- 8032 May, Hypothyroid E03.9 ; PVD (peripheral vascular disease) I73.9 ; Hypertension I10 ; Irritable bowel syndrome with diarrhea K58.0 ; Edema R60.9 ; Essential (primary) hypertension I10 ; Hypercholesterolemia E78.0 ; Depression F32.9 and Gastroesophageal reflux disease without esophagitis K21.9 [place] [address] [address]49- 67[address] Mar, [place] [address] [address]- 7236 Jan, [place] [address] 78474- 4911 Dec, Hypothyroid E03.9 ; Depression F32.9 ; Hypercholesterolemia E78.0 ; PVD (peripheral vascular disease) I73.9 ; Hypertension I10 ; Essential ( primary) hypertension I10 ; Edema R60.9 ; Sciatica of left side M54.32 ; Irritable bowel syndrome with diarrhea K58.0 and Encounter for immunization Z23 [place] [address] [place] [id number] [place] [address] 03866- 4567 Dec, [place] [address] [place] [id number] [place] [address] 02003- 2709 Dec, [place] [address] [place] [id number] [place] [address] 48751- 5494 Dec, [place] [address] [address]- [address] Dec, Adverse drug reaction, initial encounter T88.7XXA and Sciatica of left side M54.32 [place] [address] 52924- 0344 Nov, [place] [id number] [place] [address] 91481- 1530 Nov, [place] [address] [place] [id number] [place] [address] 40233- 0526 Nov, [place] [address] [place] [id number] [place] [address] 28981- 6559 Oct, [place] [address] 62814- 4533 Oct, Sciatica of left side M54.32 and Irritable bowel syndrome with diarrhea K58.0 [place] [address] 48353- 2276 Jun, Hypercholesterolemia E78.0 ; Hypothyroid E03.9 ; Essential ( primary) hypertension I10 ; Depression F32.9 ; PVD (peripheral vascular disease ) I73.9 ; Decubital ulcer L89.90 and Edema R60.9 [place] [address] [place] [id number] [place] [address] 45453- 6495 May, [place] [address] [place] [id number] [place] [address] 85320- 3252 May, PVD (peripheral vascular disease) I73.9 and Decubital ulcer L89.90 [place] [address] [place] [id number] [place] [address] 23740- 0981 May, PVD (peripheral vascular disease) I73.9 ; Cellulitis L03.90 ; Hypothyroid E03.9 ; Hypercholesterolemia E78.0 ; Hypertension I10 and Depression F32.9 [place] [address] [place] [id number] [place] [address] 54117- 6418 Jan, [place] [address] [place] [id number] [place] [address] 27628- 5443 Jan, [place] [address] [place] [id number] [place] [address] 13416- 6427 15 Oct, 2015 HTN (hypertension) I10 ; Encounter for immunization Z23 ; Hypothyroid E03.9 ; Hypercholesterolemia E78.0 and Depression F32.9 [facility] [address] [place] [address] [id number] [place] [address] [id number] Jan, Dental examination Z01.20 [facility] [address] [id number] [place] [address] 88868- 7386 Oct, [facility] [address] 47575- 5786 Oct, [facility] [address] 04720- 7403 Oct, Hypothyroidism 244.9 ; Essential hypertension 401.9 ; Depression 311 ; Varicose ulcer (lower extremity) 454.0 and Hypercholesteremia 272.0 [facility] [address] [place] [id number] [place] [address] 70341- 3265 Jul, [facility] [address] 42515- 3219 Jul, [facility] [address] [place] [id number] [place] [address] 47622- 4618 Feb, [facility] [address] [place] [address] [id number] [place] [address] 20680- 0460 Feb, [facility] [address] [place] [id number] [place] [address] 35996- 3405 Feb, [facility] [address] [place] [id number] [place] [address] 30945- 9217 Feb, [facility] [address] [place] [id number] [place] [address] 45306- 7068 Feb, [facility] [address] 34866- 6980 Feb, [facility] [address] [place] [id number] [place] [address] 47677- 2877 Nov, [facility] [address] 02041- 2835 Nov, [facility] [place] [facility] [address] [id number] [place] [address]- 0830 Nov, [facility] [place] [facility] [address] [id number] [place] [address]- 1235 Nov, [facility] [place] [facility] [address] [id number] [place] [address]- 1405 Nov, [facility] [place] [facility] [address] [id number] [place] [address]- 7669 Nov, [facility] [place] [facility] [address] [id number] [place] [address]- 8497 Nov, [facility] [place] [facility] [address] [id number] [place] [address]- 4432 Nov, [facility] [place] [facility] [address] [id number] [place] [address]- 8071 Nov, [facility] [place] [facility] [address] [id number] [place] [address]- 7467 Nov, [facility] [place] [facility] [address] [id number] [place] [address]- 5847 August, [facility] [place] [facility] [address] [id number] [place] [address]- 8799 August, [facility] [place] [facility] [address] [id number] [place] [address]- 7053 Oct, [facility] [place] [facility] [address] [id number] [place] [address]- 9303 Jul, [facility] [place] [facility] [address] [id number] [place] [address]- 4903 Jul, [facility] [place] [facility] [address] [id number] [place] [address]- 0665 Jul, [facility] [place] [facility] [address] [id number] [place] [address]- 8004 Jul, [facility] [place] [facility] [address] [id number] [place] [address]- 6028 28 Jun, 2012 [facility] [address] [id number] [place] [address]- 8153 27 Jun, 2012 [facility] [address] [id number] [place] [address]- 8896 27 Jun, 2012 [facility] [address] [id number] [place] [address]- 3328 06 Jun, 2012 [facility] [address] [id number] [place] [address]- 3266 06 Jun, 2012 [facility] [address] [id number] [place] [address]- 4971 May, [facility] [address] [id number] [place] [address]- 1253 Apr, [facility] [address] [id number] [place] [address]- 5700 Apr, [facility] [address] [id number] [place] [address]- 7011 Apr, [facility] [address] [id number] [place] [address]- 4984 Apr, [facility] [address] [id number] [place] [address]- 6581 Mar, [facility] [address] [id number] [place] [address]- 9238 19 Mar, 2012 [facility] [address] [id number] [place] [address]- 1652 18 Mar, 2012 [facility] [address] [id number] [place] [address]- 3666 18 Mar, 2012 [facility] [address] [id number] [place] [address]- 4937 14 Mar, 2012 [facility] [address] [id number] [id number] [address]46 Mar, [facility] [place] [facility] [address] [id number] [place] [address]- 9174 Mar, [facility] [place] [facility] [address] [id number] [place] [address]- 7616 Mar, [facility] [place] [facility] [address] [id number] [place] [address]- 8800 Mar, [facility] [place] [facility] [address] [id number] [place] [address]- 4408 Mar, [facility] [place] [facility] [address] [id number] [place] [address]- 4051 Mar, [facility] [place] [facility] [address] [id number] [place] [address]- 4475 Mar, [facility] [place] [facility] [address] [id number] [place] [address]- 6229 Mar, [facility] [place] [facility] [address] [id number] [place] [address]- 3768 Feb, [facility] [place] [facility] [address] [id number] [place] [address]- 2710 Feb, [facility] [place] [facility] [address] [id number] [place] [address]- 7365 Feb, [facility] [place] [facility] [address] [id number] [place] [address]- 2287 Feb, [facility] [place] [facility] [address] [id number] [place] [address]- 0330 Feb, [facility] [place] [facility] [address] [id number] [place] [address]- 6895 Feb, [facility] [place] [facility] [address] [id number] [place] [address]- 4153 Feb, [facility] [place] [facility] [address] [id number] [place] [address]- 1313 Feb, [facility] [place] [facility] [address] [id number] [place] [address]- 6365 Feb, [facility] [place] [facility] [address] [id number] [place] [address]- 8265 Feb, [facility] [place] [facility] [address] [id number] [place] [address]- 9088 Feb, [facility] [place] [facility] [address] [id number] [place] [address]- 6043 Feb, [facility] [place] [facility] [address] [id number] [place] [address]- 1028 Feb, [facility] [place] [facility] [id number] [place] [address], [place] [address]- 8225 Feb, [facility] [place] [facility] [address] [id number] [place] [address]- 6602 Jan, [facility] [place] [facility] [address] [id number] [place] [address]- 8270 Jan, [facility] [place] [facility] [address] [id number] [place] [address]- 3910 Jan, [facility] [place] [facility] [address] [id number] [place] [address]- 2067 Jan, [facility] [place] [facility] [address] [facility] [id number] [place] [address]- 3620 Jan, [facility] [place] [facility] [address] [id number] [place] [address]- 7554 Jan, [facility] [place] [facility] [address] [id number], [place] [address]- 0298 Jan, [facility] [place] [facility] [address] [id number] [place] [address]- 9401 Oct, [facility] [place] [facility] [address] [facility] [id number] [place] [address]- 7600 Oct, [facility] [place] [facility] [address] [facility] [id number] [place] [address]- 0073 Oct, [facility] [place] [facility] [address] [facility] [id number] [place] [address]- 3064 Jul, [facility] [address] [facility] [id number] [place] [address]- 7862 Jan, [facility] [address] [facility] [id number] [place] [address]- 7779 Jul, IMMUNIZATIONS No Known Immunizations SOCIAL HISTORY Never Assessed REASON FOR VISIT Medication question PLAN OF CARE VITAL SIGNS MEDICATIONS Unknown Medications RESULTS No Results PROCEDURES No Known procedures INSTRUCTIONS MEDICATIONS ADMINISTERED No Known Medications MEDICAL (GENERAL) HISTORY Type Description Date Medical History Hypothyroidism Medical History hypertension Medical History asthma Surgical History cholecystectomy Surgical History tubal ligation Surgical History vein ligation Surgical History thyroidectomy, complete Hospitalization History surgeries
--- OUTSIDE RECORDS SUMMARY | 2018-04-20 08:20 | XMS REPORT ---
Author Author BEAVERSSTACIE Edouard Organization [facility] Address [address] [place] [address] Care Team Providers Care Drier Name Role Phone STACIE BEAVERS Unavailable PROBLEMS Type Condition ICD9-CM Code GAQ08-DT Code Onset Dates Condition Status SNOMED Code Problem Irritable bowel syndrome with diarrhea K58.0 Active 027433343 Problem Gastroesophageal reflux disease without esophagitis K21.9 Active 524431921 Problem Sciatica of left side M54.32 Active 14246151 Problem PVD (peripheral vascular disease) I73.9 Active 986235221 Problem Essential (primary) hypertension I10 Active 81790195 Problem Other chronic pain G89.29 Active 22468418 Problem Acquired hypothyroidism E03.9 Active 172822684 Problem Hypertriglyceridemia E78.1 Active 769937858 Problem Pain in joint of right shoulder M25.511 Active 730429311 Problem Recurrent major depressive disorder, in partial remission F33.41 Active 02811665 Problem Overactive bladder N32.81 Active 877233981 ALLERGIES No Information ENCOUNTERS Encounter Location Date Diagnosis [facility] [address] [address] Oct, [facility] [id number] [place] [address]27- 2350 Oct, [facility] [id number] [place] [address] 31379- 6260 Oct, Overactive bladder N32.81 [facility] [id number] [place] [address] 76645- 8482 Sep, [facility] [id number] [place] [address] 22809- 5688 Sep, [facility] [id number] [place] [address] 59010- 4279 Sep, Essential (primary) hypertension I10 ; Acquired hypothyroidism E03.9 ; Hypertriglyceridemia E78.1 ; Overactive bladder N32.81 ; Irritable bowel syndrome with diarrhea K58.0 ; Recurrent major depressive disorder, in partial remission F33.41 ; Pain in right shoulder M25.511 ; Other chronic pain G89.29 ; Low back pain M54.5 ; Reactive airway disease that is not asthma R09.89 and Encounter for immunization Z23 [place] [address] [address] August, Hypertriglycer[facility] E78.1 [facility] [address] [address] Jun, Cough R05 and Bronchitis J[address] [address] Jun, [place] [address] [address] Jan, Hypothyroid E03.9 ; Depression F32.9 ; PVD (peripheral vascular disease) I73.9 ; Essential (primary) hypertension I10 ; Irritable bowel syndrome with diarrhea K58.0 ; Gastroesophageal reflux disease without esophagitis K21.9 ; Hypertriglyceridemia E78.1 ; Sciatica of left side M54.32 ; Elevated hemoglobin A1c R73.09 ; Overactive bladder N32.81 and Encounter for immunization Z23 [place] [id number] [place] [address]2656- 6534 Sep, [place] [id number] [place] [address]3855- 7210 Sep, Hypothyroid E03.9 ; Depression F32.9 ; PVD (peripheral vascular disease) I73.9 ; Hypertension I10 ; Essential (primary) hypertension I10 ; Edema R60.9 ; Irritable bowel syndrome with diarrhea K58.0 ; Gastroesophageal reflux disease without esophagitis K21.9 ; Pain in joint of right shoulder M25.511 ; Hypercholesterolemia E78.0 and Tooth abscess K04.7 [place] [address] [place] [address] August, Essential (primary) hypertension I10 ; Hypothyroid E03.9 ; Irritable bowel syndrome with diarrhea K58.0 and Hypercholesterolemia E78.0 [place] [id number] [place] [address] 68284- 1019 May, Hypothyroid E03.9 ; PVD (peripheral vascular disease) I73.9 ; Hypertension I10 ; Irritable bowel syndrome with diarrhea K58.0 ; Edema R60.9 ; Essential (primary) hypertension I10 ; Hypercholesterolemia E78.0 ; Depression F32.9 and Gastroesophageal reflux disease without esophagitis K21.9 [place] [address] [address]- [address] Mar, [place] [address] [address]- [address] Jan, [place] [address] [address]- [address]14 Dec, Hypothyroid E03.9 ; Depression F32.9 ; Hypercholesterolemia E78.0 ; PVD (peripheral vascular disease) I73.9 ; Hypertension I10 ; Essential ( primary) hypertension I10 ; Edema R60.9 ; Sciatica of left side M54.32 ; Irritable bowel syndrome with diarrhea K58.0 and Encounter for immunization Z23 [place] [id number] [place] [address] 90213- 7968 Dec, [place] [id number] [place] [address] 24779- 7372 Dec, [place] [id number] [place] [address] 55462- 0210 Dec, [place] [address] [address]- [address]2 Dec, Adverse drug reaction, initial encounter T88.7XXA and Sciatica of left side M54.32 [place] [address] [address]- 4438 Nov, [place] [id number] [place] [address] 45352- 2259 Nov, [place] [id number] [place] [address] 44159- 3333 Nov, [place] [id number] [place] [address] 83615- 1860 Oct, [place] [address] 03621- 8923 Oct, Sciatica of left side M54.32 and Irritable bowel syndrome with diarrhea K58.0 [place] [address] 03690- 9548 Jun, Hypercholesterolemia E78.0 ; Hypothyroid E03.9 ; Essential ( primary) hypertension I10 ; Depression F32.9 ; PVD (peripheral vascular disease ) I73.9 ; Decubital ulcer L89.90 and Edema R60.9 [place] [id number] [place] [address] 03970- 5866 May, [place] [id number] [place] [address] 94540- 2627 May, PVD (peripheral vascular disease) I73.9 and Decubital ulcer L89.90 [place] [id number] [place] [address] 99107- 9726 May, PVD (peripheral vascular disease) I73.9 ; Cellulitis L03.90 ; Hypothyroid E03.9 ; Hypercholesterolemia E78.0 ; Hypertension I10 and Depression F32.9 [place] [id number] [place] [address] 33518- 8410 Jan, [place] [id number] [place] [address] 20899- 7602 Jan, [place] [id number] [place] [address] 17420- 0106 15 Oct, 2015 HTN (hypertension) I10 ; Encounter for immunization Z23 ; Hypothyroid E03.9 ; Hypercholesterolemia E78.0 and Depression F32.9 [facility] [id number] [place] [id number] Jan, Dental examination Z01.20 [facility] [id number] [place] [address] 20151- 9023 Oct, [facility] [address] 27[address]- [address]197 Oct, [facility] [address] 12098- 0350 Oct, Hypothyroidism 244.9 ; Essential hypertension 401.9 ; Depression 311 ; Varicose ulcer (lower extremity) 454.0 and Hypercholesteremia 272.0 [facility] [id number] [place] [address] 03158- 1496 Jul, [facility] [address] 11838- 0933 Jul, [facility] [id number] [place] [address] 79177- 8721 Feb, [facility] [id number] [place] [address] 55613- 9564 Feb, [facility] [id number] [place] [address] 43383- 2298 Feb, [facility] [id number] [place] [address] 90125- 9469 Feb, [facility] [id number] [place] [address] 18413- 6509 Feb, [facility] [address] 26208- 7866 Feb, [facility] [id number] [place] [address] 38471- 9536 Nov, [facility] [address] 79324- 4202 Nov, [facility] [place] [facility] [address] [id number] [place] [address]- 7956 Nov, [facility] [place] [facility] [address] [id number] [place] [address]- 9126 Nov, [facility] [place] [facility] [address] [id number] [place] [address]- 1414 Nov, [facility] [place] [facility] [address] [id number] [place] [address]- 7805 Nov, [facility] [place] [facility] [address] [id number] [place] [address]- 2958 Nov, [facility] [place] [facility] [address] [id number] [place] [address]- 9328 Nov, [facility] [place] [facility] [address] [id number] [place] [address]- 4796 Nov, [facility] [place] [facility] [address] [id number] [place] [address]- 7572 Nov, [facility] [place] [facility] [address] [id number] [place] [address]- 0125 August, [facility] [place] [facility] [address] [id number] [place] [address]- 0398 August, [facility] [place] [facility] [address] [id number] [place] [address]- 8297 Oct, [facility] [place] [facility] [address] [id number] [place] [address]- 9424 Jul, [facility] [place] [facility] [address] [id number] [place] [address]- 1137 Jul, [facility] [place] [facility] [address] [id number] [place] [address]- 2620 Jul, [facility] [place] [facility] [address] [id number] [place] [address]- 6227 Jul, [facility] [place] [facility] [address] [id number] [place] [address]- 0938 28 Jun, 2012 [facility] [address] [id number] [place] [address]- 6835 27 Jun, 2012 [facility] [address] [id number] [place] [address]- 6666 27 Jun, 2012 [facility] [address] [id number] [place] [address]- 8088 06 Jun, 2012 [facility] [address] [id number] [place] [address]- 5143 06 Jun, 2012 [facility] [address] [id number] [place] [address]- 9186 May, [facility] [address] [id number] [place] [address]- 8847 Apr, [facility] [address] [id number] [place] [address]- 3183 Apr, [facility] [address] [id number] [place] [address]- 3520 Apr, [facility] [address] [id number] [place] [address]- 2122 Apr, [facility] [address] [id number] [place] [address]- 2178 Mar, [facility] [address] [id number] [place] [address]- 0174 19 Mar, 2012 [facility] [address] [id number] [place] [address]- 6047 18 Mar, 2012 [facility] [address] [id number] [place] [address]- 5948 18 Mar, 2012 [facility] [address] [id number] [place] [address]- 9571 14 Mar, 2012 [facility] [address] [id number] [place] [id number] 3959 Mar, [facility] [place] [facility] [address] [id number] [place] [address]- 2831 Mar, [facility] [place] [facility] [address] [id number] [place] [address]- 7586 Mar, [facility] [place] [facility] [address] [id number] [place] [address]- 2492 Mar, [facility] [place] [facility] [address] [id number] [place] [address]- 2222 Mar, [facility] [place] [facility] [address] [id number] [place] [address]- 6435 Mar, [facility] [place] [facility] [address] [id number] [place] [address]- 5179 Mar, [facility] [place] [facility] [address] [id number] [place] [address]- 6305 Mar, [facility] [place] [facility] [address] [id number] [place] [address]- 7996 Feb, [facility] [place] [facility] [address] [id number] [place] [address]- 3132 Feb, [facility] [place] [facility] [address] [id number] [place] [address]- 0830 Feb, [facility] [place] [facility] [address] [id number] [place] [address]- 5941 Feb, [facility] [place] [facility] [address] [id number] [place] [address]- 2366 Feb, [facility] [place] [facility] [address] [id number] [place] [address]- 3676 Feb, [facility] [place] [facility] [address] [id number] [place] [address]- 4724 Feb, [facility] [place] [facility] [address] [id number] [place] [address]- 5799 Feb, [facility] [place] [facility] [address] [id number] [place] [address]- 6441 Feb, [facility] [place] [facility] [address] [id number] [place] [address]- 1570 Feb, [facility] [place] [facility] [address] [id number] [place] [address]- 1725 Feb, [facility] [place] [facility] [address] [id number] [place] [address]- 6462 Feb, [facility] [place] [facility] [address] [id number] [place] [address]- 0269 Feb, [facility] [place] [facility] [id number] [place] [address], [place] [address]- 3275 Feb, [facility] [place] [facility] [address] [id number] [place] [address]- 4222 Jan, [facility] [place] [facility] [address] [id number] [place] [address]- 6320 Jan, [facility] [place] [facility] [address] [id number] [place] [address]- 1541 Jan, [facility] [place] [facility] [address] [id number] [place] [address]- 2792 Jan, [facility] [place] [facility] [address] [facility] [id number] [place] [address]- 8300 Jan, [facility] [place] [facility] [address] [id number] [place] [address]- 2374 Jan, [facility] [place] [facility] [address] [id number] [address]- 0446 Jan, [facility] [place] [facility] [address] [id number] [place] [address]- 5429 Oct, [facility] [place] [facility] [address] [facility] [id number] [place] [address]- 3509 Oct, [facility] [place] [facility] [address] [facility] [id number] [place] [address]- 6013 Oct, [facility] [place] [facility] [address] [facility] [id number] [place] [address]- 2260 Jul, [facility] [address] [facility] [id number] [place] [address]- 8154 Jan, [facility] [address] [facility] [id number] [place] [address]- 8249 Jul, IMMUNIZATIONS No Known Immunizations SOCIAL HISTORY Never Assessed REASON FOR VISIT [facility] PLAN OF CARE VITAL SIGNS MEDICATIONS Medication Instructions Dosage Frequency Start Date End Date Duration Status VESIcare 5 mg Orally Once a day 1 tablet 24h Oct, Feb, 30 day(s) Active RESULTS No Results PROCEDURES No Known procedures INSTRUCTIONS MEDICATIONS ADMINISTERED No Known Medications MEDICAL (GENERAL) HISTORY Type Description Date Medical History Hypothyroidism Medical History hypertension Medical History asthma Surgical History cholecystectomy Surgical History tubal ligation Surgical History vein ligation Surgical History thyroidectomy, complete Hospitalization History surgeries
--- OUTSIDE RECORDS SUMMARY | 2018-04-20 08:20 | XMS REPORT ---
Author Author BEAVERSSTACIE Edouard Organization [facility] Address [address] [place] [address] Care Team Providers Care Bottom Liner Name Role Phone STACIE BEAVERS Unavailable PROBLEMS Type Condition ICD9-CM Code VUH64-IF Code Onset Dates Condition Status SNOMED Code Problem Irritable bowel syndrome with diarrhea K58.0 Active 787702330 Problem Gastroesophageal reflux disease without esophagitis K21.9 Active 686881881 Problem Sciatica of left side M54.32 Active 54464113 Problem PVD (peripheral vascular disease) I73.9 Active 122616073 Problem Essential (primary) hypertension I10 Active 90289828 Problem Other chronic pain G89.29 Active 52058187 Problem Acquired hypothyroidism E03.9 Active 721761940 Problem Hypertriglyceridemia E78.1 Active 967090614 Problem Pain in joint of right shoulder M25.511 Active 170561855 Problem Recurrent major depressive disorder, in partial remission F33.41 Active 01336093 Problem Overactive bladder N32.81 Active 394905953 ALLERGIES No Information ENCOUNTERS Encounter Location Date Diagnosis [facility] [address] [address] Oct, [facility] [id number] [place] [address]- 7964 Oct, [facility] [id number] [place] [address]29- 1736 Oct, Overactive bladder N32.81 [facility] [id number] [place] [address] 04381- 6557 Sep, [facility] [id number] [place] [address] 20671- 3169 Sep, [facility] [id number] [place] [address] 75954- 7319 Sep, Essential (primary) hypertension I10 ; Acquired hypothyroidism E03.9 ; Hypertriglyceridemia E78.1 ; Overactive bladder N32.81 ; Irritable bowel syndrome with diarrhea K58.0 ; Recurrent major depressive disorder, in partial remission F33.41 ; Pain in right shoulder M25.511 ; Other chronic pain G89.29 ; Low back pain M54.5 ; Reactive airway disease that is not asthma R09.89 and Encounter for immunization Z23 [place] [address] [address] August, Hypertriglyceridemia E78.1 [facility] [address] [address] Jun, Cough R05 and Bronchitis J40 [address] [address] Jun, [place] [address] [address] Jan, Hypothyroid E03.9 ; Depression F32.9 ; PVD (peripheral vascular disease) I73.9 ; Essential (primary) hypertension I10 ; Irritable bowel syndrome with diarrhea K58.0 ; Gastroesophageal reflux disease without esophagitis K21.9 ; Hypertriglyceridemia E78.1 ; Sciatica of left side M54.32 ; Elevated hemoglobin A1c R73.09 ; Overactive bladder N32.81 and Encounter for immunization Z23 [place] [id number] [place] [address]- 0633 Sep, [place] [id number] [place] [address]39- 5865 Sep, Hypothyroid E03.9 ; Depression F32.9 ; PVD (peripheral vascular disease) I73.9 ; Hypertension I10 ; Essential (primary) hypertension I10 ; Edema R60.9 ; Irritable bowel syndrome with diarrhea K58.0 ; Gastroesophageal reflux disease without esophagitis K21.9 ; Pain in joint of right shoulder M25.511 ; Hypercholesterolemia E78.0 and Tooth abscess K04.7 [place] [address] [place] [address] August, Essential (primary) hypertension I10 ; Hypothyroid E03.9 ; Irritable bowel syndrome with diarrhea K58.0 and Hypercholesterolemia E78.0 [place] [id number] [place] [address]41- 1715 May, Hypothyroid E03.9 ; PVD (peripheral vascular disease) I73.9 ; Hypertension I10 ; Irritable bowel syndrome with diarrhea K58.0 ; Edema R60.9 ; Essential (primary) hypertension I10 ; Hypercholesterolemia E78.0 ; Depression F32.9 and Gastroesophageal reflux disease without esophagitis K21.9 [place] [address] [address]- [address] Mar, [place] [address] [address] Jan, [place] [address] [address]- [address] Dec, Hypothyroid E03.9 ; Depression F32.9 ; Hypercholesterolemia E78.0 ; PVD (peripheral vascular disease) I73.9 ; Hypertension I10 ; Essential ( primary) hypertension I10 ; Edema R60.9 ; Sciatica of left side M54.32 ; Irritable bowel syndrome with diarrhea K58.0 and Encounter for immunization Z23 [place] [id number] [place] [address] 46063- 9076 Dec, [place] [id number] [place] [address] 94616- 0054 Dec, [place] [id number] [place] [address] 45269- 1723 Dec, [place] [address] [address] Dec, Adverse drug reaction, initial encounter T88.7XXA and Sciatica of left side M54.32 [place] [address] [address]- 59[address] Nov, [place] [id number] [place] [address] 62313- 6984 Nov, [place] [id number] [place] [address] 09871- 1641 Nov, [place] [id number] [place] [address] 18727- 7020 Oct, [place] [address] 16[address]- [address] Oct, Sciatica of left side M54.32 and Irritable bowel syndrome with diarrhea K58.0 [place] [address] [address]- 1098 Jun, Hypercholesterolemia E78.0 ; Hypothyroid E03.9 ; Essential ( primary) hypertension I10 ; Depression F32.9 ; PVD (peripheral vascular disease ) I73.9 ; Decubital ulcer L89.90 and Edema R60.9 [place] [id number] [place] [address] 14239- 6948 May, [place] [id number] [place] [address] 86833- 8280 May, PVD (peripheral vascular disease) I73.9 and Decubital ulcer L89.90 [place] [id number] [place] [address] 62519- 9026 May, PVD (peripheral vascular disease) I73.9 ; Cellulitis L03.90 ; Hypothyroid E03.9 ; Hypercholesterolemia E78.0 ; Hypertension I10 and Depression F32.9 [place] [id number] [place] [address] 07738- 9531 Jan, [place] [id number] [place] [address] 09656- 1713 Jan, [place] [id number] [place] [address] 95332- 8811 15 Oct, 2015 HTN (hypertension) I10 ; Encounter for immunization Z23 ; Hypothyroid E03.9 ; Hypercholesterolemia E78.0 and Depression F32.9 [facility] [id number] [place] [id number] Jan, Dental examination Z01.20 [facility] [id number] [place] [address] 48468- 0290 Oct, [facility] [address] [address]- [address] Oct, [facility] [address] 80458- 2951 Oct, Hypothyroidism 244.9 ; Essential hypertension 401.9 ; Depression 311 ; Varicose ulcer (lower extremity) 454.0 and Hypercholesteremia 272.0 [facility] [id number] [place] [address] 48010- 2653 Jul, [facility] [address] 99503- 3144 Jul, [facility] [id number] [place] [address] 01983- 5509 Feb, [facility] [id number] [place] [address] 78818- 7068 Feb, [facility] [id number] [place] [address] 88400- 2328 Feb, [facility] [id number] [place] [address] 39449- 9321 Feb, [facility] [id number] [place] [address] 80175- 0539 Feb, [facility] [address] 44086- 4340 Feb, [facility] [id number] [place] [address] 64003- 0335 Nov, [facility] [address] [address]- [address] Nov, [facility] [place] [facility] [address] [id number] [place] [address]- 8419 Nov, [facility] [place] [facility] [address] [id number] [place] [address]- 4585 Nov, [facility] [place] [facility] [address] [id number] [place] [address]- 4092 Nov, [facility] [place] [facility] [address] [id number] [place] [address]- 6792 Nov, [facility] [place] [facility] [address] [id number] [place] [address]- 5772 Nov, [facility] [place] [facility] [address] [id number] [place] [address]- 5460 Nov, [facility] [place] [facility] [address] [id number] [place] [address]- 2742 Nov, [facility] [place] [facility] [address] [id number] [place] [address]- 5219 Nov, [facility] [place] [facility] [address] [id number] [place] [address]- 2568 August, [facility] [place] [facility] [address] [id number] [place] [address]- 9679 August, [facility] [place] [facility] [address] [id number] [place] [address]- 0546 Oct, [facility] [place] [facility] [address] [id number] [place] [address]- 7905 Jul, [facility] [place] [facility] [address] [id number] [place] [address]- 3028 Jul, [facility] [place] [facility] [address] [id number] [place] [address]- 9561 Jul, [facility] [place] [facility] [address] [id number] [place] [address]- 2799 Jul, [facility] [place] [facility] [address] [id number] [place] [address]- 1120 28 Jun, 2012 [facility] [address] [id number] [place] [address]- 7977 27 Jun, 2012 [facility] [address] [id number] [place] [address]- 7766 27 Jun, 2012 [facility] [address] [id number] [place] [address]- 4234 06 Jun, 2012 [facility] [address] [id number] [place] [address]- 2183 06 Jun, 2012 [facility] [address] [id number] [place] [address]- 3562 May, [facility] [address] [id number] [place] [address]- 8355 Apr, [facility] [address] [id number] [place] [address]- 1092 Apr, [facility] [address] [id number] [place] [address]- 4534 Apr, [facility] [address] [id number] [place] [address]- 9437 Apr, [facility] [address] [id number] [place] [address]- 3266 Mar, [facility] [address] [id number] [place] [address]- 9591 19 Mar, 2012 [facility] [address] [id number] [place] [address]- 9171 18 Mar, 2012 [facility] [address] [id number] [place] [address]- 1288 18 Mar, 2012 [facility] [address] [id number] [place] [address]- 1203 14 Mar, 2012 [facility] [address] [id number] [place] 1359 Mar, [facility] [place] [facility] [address] [id number] [place] [address]- 0426 Mar, [facility] [place] [facility] [address] [id number] [place] [address]- 5756 Mar, [facility] [place] [facility] [address] [id number] [place] [address]- 9153 Mar, [facility] [place] [facility] [address] [id number] [place] [address]- 1520 Mar, [facility] [place] [facility] [address] [id number] [place] [address]- 7157 Mar, [facility] [place] [facility] [address] [id number] [place] [address]- 9154 Mar, [facility] [place] [facility] [address] [id number] [place] [address]- 7862 Mar, [facility] [place] [facility] [address] [id number] [place] [address]- 0501 Feb, [facility] [place] [facility] [address] [id number] [place] [address]- 7540 Feb, [facility] [place] [facility] [address] [id number] [place] [address]- 0793 Feb, [facility] [place] [facility] [address] [id number] [place] [address]- 0045 Feb, [facility] [place] [facility] [address] [id number] [place] [address]- 3157 Feb, [facility] [place] [facility] [address] [id number] [place] [address]- 8980 Feb, [facility] [place] [facility] [address] [id number] [place] [address]- 2122 Feb, [facility] [place] [facility] [address] [id number] [place] [address]- 5542 Feb, [facility] [place] [facility] [address] [id number] [place] [address]- 2841 Feb, [facility] [place] [facility] [address] [id number] [place] [address]- 1869 Feb, [facility] [place] [facility] [address] [id number] [place] [address]- 5157 Feb, [facility] [place] [facility] [address] [id number] [place] [address]- 9563 Feb, [facility] [place] [facility] [address] [id number] [place] [address]- 0066 Feb, [facility] [place] [facility] [id number] [place] [address], [place] [address]- 6081 Feb, [facility] [place] [facility] [address] [id number] [place] [address]- 3013 Jan, [facility] [place] [facility] [address] [id number] [place] [address]- 7266 Jan, [facility] [place] [facility] [address] [id number] [place] [address]- 2668 Jan, [facility] [place] [facility] [address] [id number] [place] [address]- 9687 Jan, [facility] [place] [facility] [address] [facility] [id number] [place] [address]- 0443 Jan, [facility] [place] [facility] [address] [id number] [place] [address]- 6744 Jan, [facility] [place] [facility] [address] [id number] [address]- 6142 Jan, [facility] [place] [facility] [address] [id number] [place] [address]- 1380 Oct, [facility] [place] [facility] [address] [facility]] [id number] [place] [address]- 6915 Oct, [facility] [place] [facility] [address] [facility] [id number] [place] [address]- 7077 Oct, [facility] [place] [facility] [address] [facility]] [id number] [place] [address]- 7823 Jul, [facility] [address] [facility] [id number] [place] [address]- 3147 Jan, [facility] [address] [facility] [id number] [place] [address]- 8237 Jul, IMMUNIZATIONS No Known Immunizations SOCIAL HISTORY Never Assessed REASON FOR VISIT [facility] PLAN OF CARE VITAL SIGNS MEDICATIONS Unknown Medications RESULTS No Results PROCEDURES No Known procedures INSTRUCTIONS MEDICATIONS ADMINISTERED No Known Medications MEDICAL (GENERAL) HISTORY Type Description Date Medical History Hypothyroidism Medical History hypertension Medical History asthma Surgical History cholecystectomy Surgical History tubal ligation Surgical History vein ligation Surgical History thyroidectomy, complete Hospitalization History surgeries
[2018-04-20] MEDS ORDERED: fentaNYL INJECTION 100 MCG/2 ML AMP ONE (08:23)
[2018-04-20] MEDS ORDERED: MIDAZOLAM 5 MG/5 ML (VERSED) VIAL ONE (08:23)
--- OUTSIDE RECORDS SUMMARY | 2018-04-20 08:24 | XMS REPORT ---
Author Author NIMESHSAMUELSTACIE Organization [facility] Address [address] [place] [address] Care Team Providers Care Graphic Design Assistant Name Role Phone STACIE BEAVERS Unavailable PROBLEMS Type Condition ICD9-CM Code ZKH81-EG Code Onset Dates Condition Status SNOMED Code Problem Irritable bowel syndrome with diarrhea K58.0 Active 109784763 Problem Gastroesophageal reflux disease without esophagitis K21.9 Active 288080681 Problem Sciatica of left side M54.32 Active 89933652 Problem PVD (peripheral vascular disease) I73.9 Active 990072236 Problem Essential (primary) hypertension I10 Active 45087763 Problem Other chronic pain G89.29 Active 26674804 Problem Acquired hypothyroidism E03.9 Active 078589101 Problem Hypertriglyceridemia E78.1 Active 648283883 Problem Pain in joint of right shoulder M25.511 Active 176883846 Problem Recurrent major depressive disorder, in partial remission F33.41 Active 36269054 Problem Overactive bladder N32.81 Active 783909538 ALLERGIES Substance Reaction Event Type Date Status Vistaril hives Drug Allergy Sep, Active Vaseline itching Drug Allergy Sep, Active Neosporin hives Drug Allergy Sep, Active Nabumetone hives/rash Drug Allergy Sep, Active ENCOUNTERS Encounter Location Date Diagnosis [facility] [address] [facility] [id number] [place] [address] Oct, [facility] [address] [facility] [id number] [place] [address] Oct, [facility] [address] [id number] [place] [address] Oct, Overactive bladder N32.81 [facility] [address] [id number] [place] [address] Sep, [facility] [id number] [place] [address] Sep, [place] [address] [address] Sep, Essential (primary) hypertension I10 ; Acquired hypothyroidism E03.9 ; Hypertriglyceridemia E78.1 ; Overactive bladder N32.81 ; Irritable bowel syndrome with diarrhea K58.0 ; Recurrent major depressive disorder, in partial remission F33.41 ; Pain in right shoulder M25.511 ; Other chronic pain G89.29 ; Low back pain M54.5 ; Reactive airway disease that is not asthma R09.89 and Encounter for immunization Z23 [address] [address] August, Hypertriglyceridemia E78.1 [facility] [address] [address] Jun, Cough R05 and Bronchitis J40 [place] [id number] [place] [address]- [address]39 Jun, [place] [id number] [place] [address]- 7612 Jan, Hypothyroid E03.9 ; Depression F32.9 ; PVD (peripheral vascular disease) I73.9 ; Essential (primary) hypertension I10 ; Irritable bowel syndrome with diarrhea K58.0 ; Gastroesophageal reflux disease without esophagitis K21.9 ; Hypertriglyceridemia E78.1 ; Sciatica of left side M54.32 ; Elevated hemoglobin A1c R73.09 ; Overactive bladder N32.81 and Encounter for immunization Z23 [place] [id number] [place] [address]- 8196 Sep, [place] [address] [address] Sep, Hypothyroid E03.9 ; Depression F32.9 ; PVD (peripheral vascular disease) I73.9 ; Hypertension I10 ; Essential (primary) hypertension I10 ; Edema R60.9 ; Irritable bowel syndrome with diarrhea K58.0 ; Gastroesophageal reflux disease without esophagitis K21.9 ; Pain in joint of right shoulder M25.511 ; Hypercholesterolemia E78.0 and Tooth abscess K04.7 [place] [id number] [place] [address] August, Essential (primary) hypertension I10 ; Hypothyroid E03.9 ; Irritable bowel syndrome with diarrhea K58.0 and Hypercholesterolemia E78.0 [place] [address] [address] May, Hypothyroid E03.9 ; PVD (peripheral vascular disease) I73.9 ; Hypertension I10 ; Irritable bowel syndrome with diarrhea K58.0 ; Edema R60.9 ; Essential (primary) hypertension I10 ; Hypercholesterolemia E78.0 ; Depression F32.9 and Gastroesophageal reflux disease without esophagitis K21.9 [place] [address] [address] Mar, [place] [address] [address] Jan, [place] [address] [address] Dec, Hypothyroid E03.9 ; Depression F32.9 ; Hypercholesterolemia E78.0 ; PVD (peripheral vascular disease) I73.9 ; Hypertension I10 ; Essential ( primary) hypertension I10 ; Edema R60.9 ; Sciatica of left side M54.32 ; Irritable bowel syndrome with diarrhea K58.0 and Encounter for immunization Z23 [place] [id number] [place] [address]87- 5677 Dec, [place] [address] [address] Dec, [place] [id number] [place] [address] 8[address]22- 9816 Dec, [place] [address] [address] Dec, Adverse drug reaction, initial encounter T88.7XXA and Sciatica of left side M54.32 [place] [id number] [place] [address] 50763- 6780 Nov, [facility] [id number] [place] [address]44- 3067 Nov, [place] [address] [address] Nov, [facility] [address] [address]- [address] Oct, [place] [address] [address] Oct, Sciatica of left side M54.32 and Irritable bowel syndrome with diarrhea K58.0 [place] [address] [address]- [address] Jun, Hypercholesterolemia E78.0 ; Hypothyroid E03.9 ; Essential ( primary) hypertension I10 ; Depression F32.9 ; PVD (peripheral vascular disease ) I73.9 ; Decubital ulcer L89.90 and Edema R60.9 [place] [id number] [place] [address] 8[address]21- 9108 May, [place] [id number] [place] [address] 49647- 9457 May, PVD (peripheral vascular disease) I73.9 and Decubital ulcer L89.90 [place] [id number] [place] [address] 21867- 0227 May, PVD (peripheral vascular disease) I73.9 ; Cellulitis L03.90 ; Hypothyroid E03.9 ; Hypercholesterolemia E78.0 ; Hypertension I10 and Depression F32.9 [place] [id number] [place] [address] 88064- 0326 Jan, [place] [address] [place] [address] Jan, [facility] [id number] [place] [address] 24620- 7397 Jan, HTN (hypertension) I10 ; Encounter for immunization Z23 ; Hypothyroid E03.9 ; Hypercholesterolemia E78.0 and Depression F32.9 [facility] [id number] [place] [id number] Jan, Dental examination Z01.20 [facility] [address] [address]- [address] Oct, [facility] [address] [address]- [address] Oct, [facility] [id number] [place] [address] 27580- 3898 Oct, Hypothyroidism 244.9 ; Essential hypertension 401.9 ; Depression 311 ; Varicose ulcer (lower extremity) 454.0 and Hypercholesteremia 272.0 [facility] [id number] [place] [address] 91355- 4698 Jul, [facility] [address] 0[address]- [address] Jul, [facility] [id number] [place] [address] 33007- 3762 Feb, [facility] [id number] [place] [address] 78721- 9278 Feb, [facility] [id number] [place] [address] 58613- 9367 Feb, [facility] [address] 47045- 8734 Feb, [facility] [id number] [place] [address] 40858- 9688 Feb, [facility] [id number] [place] [address] 13841- 4635 Feb, [facility] [place] [facility] [address] [id number] [place] [address]- 9194 Nov, [facility] [place] [facility] [address] [id number] [place] [address]- 8409 Nov, [facility] [place] [facility] [address] [id number] [place] [address]- 6794 Nov, [facility] [place] [facility] [address] [id number] [place] [address]- 5452 Nov, [facility] [place] [facility] [address] [id number] [place] [address]- 6198 Nov, [facility] [place] [facility] [address] [id number] [place] [address]- 6291 Nov, [facility] [place] [facility] [address] [id number] [place] [address]- 9149 Nov, [facility] [place] [facility] [address] [id number] [place] [address]- 2769 Nov, [facility] [place] [facility] [address] [id number] [place] [address]- 8127 Nov, [facility] [place] [facility] [address] [id number] [place] [address]- 1093 Nov, [facility] [place] [facility] [address] [id number] [place] [address]- 1082 August, [facility] [place] [facility] [address] [id number] [place] [address]- 0917 August, [facility] [place] [facility] [address] [id number] [place] [address]- 8871 Oct, [facility] [place] [facility] [address] [id number] [place] [address]- 7390 Jul, [facility] [place] [facility] [address] [id number] [place] [address]- 2572 Jul, [facility] [place] [facility] [address] [id number] [place] [address]- 14[address] 05 Jul, 2012 [facility] [address] [id number] [place] [address]- 6813 Jul, [facility] [address] [id number] [place] [address]- 1229 Jun, [facility] [address] [id number] [place] [address]- 6983 Jun, [facility] [address] [id number] [place] [address]- 2214 Jun, [facility] [address] [id number] [place] [address]- 3385 Jun, [facility] [address] [id number] [place] [address]- 5584 Jun, [facility] [address] [id number] [place] [address]- 7281 May, [facility] [address] [id number] [place] [address]- 6959 Apr, [facility] [address] [id number] [place] [address]- 6072 Apr, [facility] [address] [facility] [id number] [place] [address]- 9559 Apr, [facility] [address] [id number] [place] [address]- 6779 Apr, [facility] [address] [id number] [place] [address]- 7565 Mar, [facility] [address] [id number] [place] [address]- 0158 Mar, [facility] [address] [facility] [id number] [place] [address]- 8763 Mar, [facility] [address] [facility] [id number] [place] [address]- 0316 Mar, [facility] [place] [facility] [address] [id number] [place] [address]- 6946 14 Mar, 2012 [facility] [place] [facility] [address] [id number] [place] [address]- 5906 14 Mar, 2012 [facility] [place] [facility] [address] [id number] [place] [address] 2546 Mar, [facility] [place] [facility] [address] [id number] [place] [address]- 6796 Mar, [facility] [place] [facility] [address] [id number] [place] [address]- 2326 Mar, [facility] [place] [facility] [address] [id number] [place] [address]- 3846 Mar, [facility] [place] [facility] [address] [id number] [place] [address]- 5127 Mar, [facility] [place] [facility] [address] [id number] [place] [address]- 5361 Mar, [facility] [place] [facility] [address] [id number] [place] [address]- 6527 Mar, [facility] [place] [facility] [address] [id number] [place] [address]- 5663 Feb, [facility] [place] [facility] [address] [id number] [place] [address]- 7373 Feb, [facility] [place] [facility] [address] [id number] [place] [address]- 9506 Feb, [facility] [place] [facility] [address] [id number] [place] [address] 2546 Feb, [facility] [place] [facility] [address] [id number] [place] [address]- 7956 Feb, [facility] [place] [facility] [address] [id number] [place] [address] Feb, [facility] [place] [facility] [address] [id number] [place] [address]- 1295 Feb, [facility] [place] [facility] [address] [id number] [place] [address]- 5313 Feb, [facility] [place] [facility] [address] [id number] [place] [address]- 8358 Feb, [facility] [place] [facility] [address] [facility] [id number] [place] [address]- 2723 Feb, [facility] [place] [facility] [address] [id number] [place] [address]- 1029 Feb, [facility] [place] [facility] [address] [id number] [place] [address]- 3202 Feb, [facility] [place] [facility] [address] [id number] [place] [address], [place] [address]- 0432 Feb, [facility] [place] [facility] [address] [facility] [id number] [place] [address]- 2386 Feb, [facility] [place] [facility] [address] [id number] [place] [address]- 7634 Jan, [facility] [place] [facility] [address] [id number] [place] [address]- 4505 Jan, [facility] [place] [facility] [address] [facility] [id number] [place] [address]- 9858 Jan, [facility] [place] [facility] [address] [id number] [place] [address]- 1564 Jan, [facility] [place] [facility] [address] [id number] [place] [address]- 4567 Jan, [facility] [place] [facility] [address] [id number] [place] [address]- 3053 Jan, [facility] [place] [facility] [address] [facility] [id number] [place] [address]- 9391 Jan, [facility] [place] [facility] [address] [facility] [id number] [place] [address]- 4117 Oct, [facility] [place] [facility] [address] [facility] [id number] [place] [address]- 0619 Oct, [facility] [address] [facility] [id number] [place] [address]- 6513 Oct, [facility] [address] [facility] [id number] [place] 7978 Jul, [facility] [address] [facility] [id number] [place] 8466 Jan, [facility] [address] [facility] [id number] [place] [address]994 Jul, IMMUNIZATIONS Vaccine Route Administration Date Status PCV 13 IM Intramuscular September 29, 2017 Administered SOCIAL HISTORY Never Assessed REASON FOR VISIT hypothyroidism/CHM. CATHIE Morales, Needs antidepressant, refill on medications., PHQ-9, patient refused to answer last question. PLAN OF CARE Activity Details Follow Up 1 Year, prn Reason:CHM/HTN VITAL SIGNS Height 62 in 2017-09-29 Weight 207.9 lbs 2017-09-29 Temperature 98.1 degrees Fahrenheit 2017-09-29 Heart Rate 69 bpm 2017-09-29 Respiratory Rate 22 2017-09-29 BMI 38.02 kg/m2 2017-09-29 Blood pressure systolic 124 mmHg 2017-09-29 Blood pressure diastolic 62 mmHg 2017-09-29 MEDICATIONS Medication Instructions Dosage Frequency Start Date End Date Duration Status Lisinopril-Hydrochlorothiazide 20-25 mg Orally Once a day TAKE ONE TABLET BY MOUTH ONCE DAILY 24h 90 days Active Hydrocodone-Acetaminophen 5-325 MG Orally 2 times a day 1 tablet as needed 12h Sep, Oct, 14 days Active Atorvastatin Calcium 40 mg Orally Once a day 1 tablet 24h Jan, 90 days Active Colestipol HCl 1 GM Orally Once a day 2 tablets 24h Dec, 90 days Active Sertraline HCl 25 MG Orally Once a day 1 tablet 24h Sep, 90 days Active Ibuprofen 200 MG Orally 2 times a day 2 tablets as needed 12h Active Multi For Her 50+ Orally Once a day 1 tablet 24h Active Lisinopril 20 mg Orally Once a day 1 tablet 24h Jun, 90 days Active Arthritis Pain Relief 650 MG Orally Once a day 2 tabs 24h Active Allergy Relief 180 MG Orally Once a day 1 tablet as needed 24h Active Detrol LA 4 MG Orally Once a day 1 capsule 24h Sep, Dec, 90 days Active Ranitidine HCl 150 MG Orally Once a day 1 capsule at bedtime 24h 90 days Active Albuterol Sulfate (2.5 MG/3ML) 0.083% Inhalation Three times a day 3 ml as needed 8h Sep, 12 months Active Levothyroxine Sodium 112 MCG Orally Once a day 1 tab 24h 30 days Active RESULTS No Results PROCEDURES Procedure Date Ordered Result Body Site [facility] September 29, 2017 PCV 13 September 29, 2017 VENIPUNCT, ROUTINE* September 29, 2017 SINGLE IMMUNIZATION ADMIN September 29, 2017 [facility] VISIT ESTABLISHED PATIENT September 29, 2017 INSTRUCTIONS MEDICATIONS ADMINISTERED No Known Medications MEDICAL (GENERAL) HISTORY Type Description Date Medical History Hypothyroidism Medical History hypertension Medical History asthma Surgical History cholecystectomy Surgical History tubal ligation Surgical History vein ligation Surgical History thyroidectomy, complete Hospitalization History surgeries
--- OUTSIDE RECORDS SUMMARY | 2018-04-20 08:25 | XMS REPORT ---
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 [employer] Photograph Name Role Phone STACIE BEAVERS Unavailable PROBLEMS Type Condition ICD9-CM Code INW17-FU Code Onset Dates Condition Status SNOMED Code Problem Irritable bowel syndrome with diarrhea K58.0 Active 887878333 Problem Gastroesophageal reflux disease without esophagitis K21.9 Active 823128714 Problem Sciatica of left side M54.32 Active 44477144 Problem PVD (peripheral vascular disease) I73.9 Active 301995788 Problem Essential (primary) hypertension I10 Active 97361458 Problem Other chronic pain G89.29 Active 17441967 Problem Acquired hypothyroidism E03.9 Active 456455620 Problem Hypertriglyceridemia E78.1 Active 491313503 Problem Pain in joint of right shoulder M25.511 Active 402257582 Problem Recurrent major depressive disorder, in partial remission F33.41 Active 63456169 Problem Overactive bladder N32.81 Active 095408067 ALLERGIES No Information ENCOUNTERS Encounter Location Date Diagnosis [facility] [id number] [address] Oct, [facility] [id number] [place] [address]31- 7507 Oct, [facility] [id number] [place] [address] 05477- 3757 Oct, Overactive bladder N32.81 [facility] [id number] [place] [address] 43541- 7711 Sep, [facility] [id number] [place] [address] 24465- 4094 Sep, [facility] [id number] [place] [address] 91914- 6047 Sep, Essential (primary) hypertension I10 ; Acquired hypothyroidism E03.9 ; Hypertriglyceridemia E78.1 ; Overactive bladder N32.81 ; Irritable bowel syndrome with diarrhea K58.0 ; Recurrent major depressive disorder, in partial remission F33.41 ; Pain in right shoulder M25.511 ; Other chronic pain G89.29 ; Low back pain M54.5 ; Reactive airway disease that is not asthma R09.89 and Encounter for immunization Z23 [place] [address] [address] August, Hypertriglyceridemia E78.1 [facility] [address] [address] Jun, Cough R05 and Bronchitis J40 [address] [address]- [address] Jun, [place] [address] 35856- 8[address] Jan, Hypothyroid E03.9 ; Depression F32.9 ; PVD (peripheral vascular disease) I73.9 ; Essential (primary) hypertension I10 ; Irritable bowel syndrome with diarrhea K58.0 ; Gastroesophageal reflux disease without esophagitis K21.9 ; Hypertriglyceridemia E78.1 ; Sciatica of left side M54.32 ; Elevated hemoglobin A1c R73.09 ; Overactive bladder N32.81 and Encounter for immunization Z23 [place] [id number] [place] [address] 87579- 4603 Sep, [place] [id number] [place] [address] 16953- 7634 Sep, Hypothyroid E03.9 ; Depression F32.9 ; PVD (peripheral vascular disease) I73.9 ; Hypertension I10 ; Essential (primary) hypertension I10 ; Edema R60.9 ; Irritable bowel syndrome with diarrhea K58.0 ; Gastroesophageal reflux disease without esophagitis K21.9 ; Pain in joint of right shoulder M25.511 ; Hypercholesterolemia E78.0 and Tooth abscess K04.7 [place] [id number] [place] [address] August, Essential (primary) hypertension I10 ; Hypothyroid E03.9 ; Irritable bowel syndrome with diarrhea K58.0 and Hypercholesterolemia E78.0 [place] [id number] [place] [address] 92908- 6652 May, Hypothyroid E03.9 ; PVD (peripheral vascular disease) I73.9 ; Hypertension I10 ; Irritable bowel syndrome with diarrhea K58.0 ; Edema R60.9 ; Essential (primary) hypertension I10 ; Hypercholesterolemia E78.0 ; Depression F32.9 and Gastroesophageal reflux disease without esophagitis K21.9 [place] [address] [address]80- 7178 Mar, [place] [address] 36691- 5745 Jan, [place] [address] 27079- 8584 Dec, Hypothyroid E03.9 ; Depression F32.9 ; Hypercholesterolemia E78.0 ; PVD (peripheral vascular disease) I73.9 ; Hypertension I10 ; Essential ( primary) hypertension I10 ; Edema R60.9 ; Sciatica of left side M54.32 ; Irritable bowel syndrome with diarrhea K58.0 and Encounter for immunization Z23 [place] [id number] [place] [address] 89643- 1527 Dec, [place] [id number] [place] [address] 45257- 3443 Dec, [place] [id number] [place] [address] 15462- 2183 Dec, [place] [address] 10800- 0339 Dec, Adverse drug reaction, initial encounter T88.7XXA and Sciatica of left side M54.32 [place] [address] 84363- 1867 Nov, [place] [id number] [place] [address] 79834- 2559 Nov, [place] [id number] [place] [address] 88260- 6139 Nov, [place] [address] [id number] [place] [address] 40262- 2550 Oct, [place] [address] 05287- 4166 Oct, Sciatica of left side M54.32 and Irritable bowel syndrome with diarrhea K58.0 [place] [address] 60010- 6246 Jun, Hypercholesterolemia E78.0 ; Hypothyroid E03.9 ; Essential ( primary) hypertension I10 ; Depression F32.9 ; PVD (peripheral vascular disease ) I73.9 ; Decubital ulcer L89.90 and Edema R60.9 [place] [id number] [place] [address] 65218- 2391 May, [place] [id number] [place] [address] 85905- 6987 May, PVD (peripheral vascular disease) I73.9 and Decubital ulcer L89.90 [place] [id number] [place] [address] 84361- 3873 May, PVD (peripheral vascular disease) I73.9 ; Cellulitis L03.90 ; Hypothyroid E03.9 ; Hypercholesterolemia E78.0 ; Hypertension I10 and Depression F32.9 [place] [address] [id number] [place] [address] 78390- 6998 Jan, [place] [address] [address] [id number] [place] [address] 88415- 4160 Jan, [place] [address] [address] [id number] [place] [address] 00970- 0834 15 Oct, 2015 HTN (hypertension) I10 ; Encounter for immunization Z23 ; Hypothyroid E03.9 ; Hypercholesterolemia E78.0 and Depression F32.9 [facility] [id number] [place] [address] [id number] Jan, Dental examination Z01.20 [facility] [id number] [place] [address] 21158- 9394 Oct, [facility] [address] 20881- 0706 Oct, [facility] [address] 92022- 2594 Oct, Hypothyroidism 244.9 ; Essential hypertension 401.9 ; Depression 311 ; Varicose ulcer (lower extremity) 454.0 and Hypercholesteremia 272.0 [facility] [id number] [place] [address] 13937- 6936 Jul, [facility] [address] 27622- 8284 Jul, [facility] [id number] [place] [address] 13248- 2256 Feb, [facility] [id number] [place] [address] 91100- 9605 Feb, [facility] [id number] [place] [address] 78347- 9133 Feb, [facility] [id number] [place] [address] 68456- 3947 Feb, [facility] [id number] [place] [address] 14494- 7932 Feb, [facility] [address] 56452- 6305 Feb, [facility] [id number] [place] [address] 88251- 6403 Nov, [facility] [address] 05009- 9866 Nov, [facility] [place] [facility] [address] [id number] [place] [address]- 9944 Nov, [facility] [place] [facility] [address] [id number] [place] [address]- 1078 Nov, [facility] [place] [facility] [address] [id number] [place] [address]- 4256 Nov, [facility] [place] [facility] [address] [id number] [place] [address]- 9296 Nov, [facility] [place] [facility] [address] [id number] [place] [address]- 5322 Nov, [facility] [place] [facility] [address] [id number] [place] [address]- 5787 Nov, [facility] [place] [facility] [address] [id number] [place] [address]- 3467 Nov, [facility] [place] [facility] [address] [id number] [place] [address]- 3997 Nov, [facility] [place] [facility] [address] [id number] [place] [address]- 0618 August, [facility] [place] [facility] [address] [id number] [place] [address]- 0252 August, [facility] [place] [facility] [address] [id number] [place] [address]- 6603 Oct, [facility] [place] [facility] [address] [id number] [place] [address]- 1124 Jul, [facility] [place] [facility] [address] [id number] [place] [address]- 1788 Jul, [facility] [place] [facility] [address] [id number] [place] [address]- 4676 Jul, [facility] [place] [facility] [address] [id number] [place] [address]- 4696 Jul, [facility] [place] [facility] [address] [id number] [place] [address]- 5686 28 Jun, 2012 [facility] [address] [id number] [place] [address]- 2939 27 Jun, 2012 [facility] [address] [id number] [place] [address]- 6466 27 Jun, 2012 [facility] [address] [id number] [place] [address]- 1898 06 Jun, 2012 [facility] [address] [id number] [place] [address]- 3729 06 Jun, 2012 [facility] [address] [id number] [place] [address]- 9211 May, [facility] [address] [id number] [place] [address]- 0615 Apr, [facility] [address] [id number] [place] [address]- 3909 Apr, [facility] [address] [id number] [place] [address]- 6095 Apr, [facility] [address] [id number] [place] [address]- 6685 Apr, [facility] [address] [id number] [place] [address]- 0737 Mar, [facility] [address] [id number] [place] [address]- 9064 19 Mar, 2012 [facility] [address] [id number] [place] [address]- 0787 18 Mar, 2012 [facility] [address] [id number] [place] [address]- 9139 18 Mar, 2012 [facility] [address] [id number] [place] [address]- 0879 14 Mar, 2012 [facility] [address] [id number] [place] [address]99 Mar, [facility] [place] [facility] [address] [id number] [place] [address]- 9301 Mar, [facility] [place] [facility] [address] [id number] [place] [address]- 6016 Mar, [facility] [place] [facility] [address] [id number] [place] [address]- 3000 Mar, [facility] [place] [facility] [address] [id number] [place] [address]- 9418 Mar, [facility] [place] [facility] [address] [id number] [place] [address]- 0204 Mar, [facility] [place] [facility] [address] [id number] [place] [address]- 1075 Mar, [facility] [place] [facility] [address] [id number] [place] [address]- 6105 Mar, [facility] [place] [facility] [address] [id number] [place] [address]- 9257 Feb, [facility] [place] [facility] [address] [id number] [place] [address]- 2430 Feb, [facility] [place] [facility] [address] [id number] [place] [address]- 9051 Feb, [facility] [place] [facility] [address] [id number] [place] [address]- 8190 Feb, [facility] [place] [facility] [address] [id number] [place] [address]- 5736 Feb, [facility] [place] [facility] [address] [id number] [place] [address]- 2081 Feb, [facility] [place] [facility] [address] [id number] [place] [address]- 6721 Feb, [facility] [place] [facility] [address] [id number] [place] [address]- 1620 Feb, [facility] [place] [facility] [address] [id number] [place] [address]- 6494 Feb, [facility] [place] [facility] [address] [id number] [place] [address]- 0658 Feb, [facility] [place] [facility] [address] [id number] [place] [address]- 6963 Feb, [facility] [place] [facility] [address] [id number] [place] [address]- 3826 Feb, [facility] [place] [facility] [address] [id number] [place] [address]- 9889 Feb, [facility] [place] [facility] [address] [id number] [place] [address], [place] [address]- 0496 Feb, [facility] [place] [facility] [address] [id number] [place] [address]- 8849 Jan, [facility] [place] [facility] [address] [id number] [place] [address]- 5484 Jan, [facility] [place] [facility] [address] [id number] [place] [address]- 4714 Jan, [facility] [place] [facility] [address] [id number] [place] [address]- 3429 Jan, [facility] [place] [facility] [address] [facility] [id number] [place] [address]- 0075 Jan, [facility] [place] [facility] [address] [id number] [place] [address]- 2754 Jan, [facility] [place] [facility] [address] [id number], [place] [address]- 4389 Jan, [facility] [place] [facility] [address] [id number] [place] [address]- 8149 Oct, [facility] [place] [facility] [address] [facility] [id number] [place] [address]- 6578 Oct, [facility] [place] [facility] [address] [facility] [id number] [place] [address]- 5404 Oct, [facility] [place] [facility] [address] [facility] [id number] [place] [address]- 1516 Jul, [facility] [address] [facility] [id number] [place] [address]- 5202 Jan, [facility] [address] [facility] [id number] [place] [address]- 7488 Jul, IMMUNIZATIONS No Known Immunizations SOCIAL HISTORY Never Assessed REASON FOR VISIT Requests return call after 3pm PLAN OF CARE VITAL SIGNS MEDICATIONS Unknown Medications RESULTS No Results PROCEDURES No Known procedures INSTRUCTIONS MEDICATIONS ADMINISTERED No Known Medications MEDICAL (GENERAL) HISTORY Type Description Date Medical History Hypothyroidism Medical History hypertension Medical History asthma Surgical History cholecystectomy Surgical History tubal ligation Surgical History vein ligation Surgical History thyroidectomy, complete Hospitalization History surgeries
--- OUTSIDE RECORDS SUMMARY | 2018-04-20 08:25 | XMS REPORT ---
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 Name Role Phone GABY KEENE Unavailable PROBLEMS Type Condition ICD9-CM Code DVN22-EL Code Onset Dates Condition Status SNOMED Code Problem Irritable bowel syndrome with diarrhea K58.0 Active 061286305 Problem Gastroesophageal reflux disease without esophagitis K21.9 Active 295884943 Problem Sciatica of left side M54.32 Active 99240711 Problem PVD (peripheral vascular disease) I73.9 Active 124303369 Problem Essential (primary) hypertension I10 Active 46779688 Problem Other chronic pain G89.29 Active 67947355 Problem Acquired hypothyroidism E03.9 Active 916249496 Problem Hypertriglyceridemia E78.1 Active 729087708 Problem Pain in joint of right shoulder M25.511 Active 310228003 Problem Recurrent major depressive disorder, in partial remission F33.41 Active 69804081 Problem Overactive bladder N32.81 Active 076378256 ALLERGIES No Information ENCOUNTERS Encounter Location Date Diagnosis [facility] [id number] [place] [address] 36583- 8569 Oct, [facility] [id number] [place] [address] 18128- 4532 Oct, [facility] [id number] [place] [address] 87111- 3554 Oct, Overactive bladder N32.81 [facility] [id number] [place] [address] 59009- 7108 Sep, [facility] [id number] [place] [address] 05289- 3235 Sep, [facility] [id number] [place] [address] 50606- 8787 Sep, Essential (primary) hypertension I10 ; Acquired hypothyroidism E03.9 ; Hypertriglyceridemia E78.1 ; Overactive bladder N32.81 ; Irritable bowel syndrome with diarrhea K58.0 ; Recurrent major depressive disorder, in partial remission F33.41 ; Pain in right shoulder M25.511 ; Other chronic pain G89.29 ; Low back pain M54.5 ; Reactive airway disease that is not asthma R09.89 and Encounter for immunization Z23 [place] [id number] [place] [address] 91088- 5398 August, Hypertriglyceridemia E78.1 [facility] [address] [place] [address] 88683 -5987 Jun, Cough R05 and Bronchitis J40 [place] [id number] [place] [address] 49273- 4867 Jun, [address] [address]23- 4355 Jan, Hypothyroid E03.9 ; Depression F32.9 ; PVD (peripheral vascular disease) I73.9 ; Essential (primary) hypertension I10 ; Irritable bowel syndrome with diarrhea K58.0 ; Gastroesophageal reflux disease without esophagitis K21.9 ; Hypertriglyceridemia E78.1 ; Sciatica of left side M54.32 ; Elevated hemoglobin A1c R73.09 ; Overactive bladder N32.81 and Encounter for immunization Z23 [place] [id number] [place] [address] 84644- 0509 Sep, [place] [id number] [place] [address] 44859- 3107 Sep, Hypothyroid E03.9 ; Depression F32.9 ; PVD (peripheral vascular disease) I73.9 ; Hypertension I10 ; Essential (primary) hypertension I10 ; Edema R60.9 ; Irritable bowel syndrome with diarrhea K58.0 ; Gastroesophageal reflux disease without esophagitis K21.9 ; Pain in joint of right shoulder M25.511 ; Hypercholesterolemia E78.0 and Tooth abscess K04.7 [place] [id number] [place] [address] 49884- 0324 August, Essential (primary) hypertension I10 ; Hypothyroid E03.9 ; Irritable bowel syndrome with diarrhea K58.0 and Hypercholesterolemia E78.0 [place] [id number] [place] [address] 21678- 5746 May, Hypothyroid E03.9 ; PVD (peripheral vascular disease) I73.9 ; Hypertension I10 ; Irritable bowel syndrome with diarrhea K58.0 ; Edema R60.9 ; Essential (primary) hypertension I10 ; Hypercholesterolemia E78.0 ; Depression F32.9 and Gastroesophageal reflux disease without esophagitis K21.9 [place] [address] 86998- 4653 Mar, [place] [address] 39768- 6672 Jan, [place] [address] 25122- 1809 Dec, Hypothyroid E03.9 ; Depression F32.9 ; Hypercholesterolemia E78.0 ; PVD (peripheral vascular disease) I73.9 ; Hypertension I10 ; Essential ( primary) hypertension I10 ; Edema R60.9 ; Sciatica of left side M54.32 ; Irritable bowel syndrome with diarrhea K58.0 and Encounter for immunization Z23 [place] [id number] [place] [address] 89324- 4570 Dec, [place] [id number] [place] [address] 11046- 9151 Dec, [place] [id number] [place] [address] 84537- 3335 Dec, [place] [address] 18617- 4003 Dec, Adverse drug reaction, initial encounter T88.7XXA and Sciatica of left side M54.32 [place] [address] 60549- 5639 Nov, [place] [id number] [place] [address] 66997- 3824 Nov, [facility] [id number] [place] [address] 21326- 4426 Nov, [place] [id number] [place] [address] 64273- 4607 Oct, [place] [address] 20760- 6815 Oct, Sciatica of left side M54.32 and Irritable bowel syndrome with diarrhea K58.0 [place] [address] 59234- 4973 Jun, Hypercholesterolemia E78.0 ; Hypothyroid E03.9 ; Essential ( primary) hypertension I10 ; Depression F32.9 ; PVD (peripheral vascular disease ) I73.9 ; Decubital ulcer L89.90 and Edema R60.9 [place] [id number] [place] [address] 67843- 2258 May, [place] [id number] [place] [address] 73394- 9585 May, PVD (peripheral vascular disease) I73.9 and Decubital ulcer L89.90 [place] [id number] [place] [address] 01397- 1021 May, PVD (peripheral vascular disease) I73.9 ; Cellulitis L03.90 ; Hypothyroid E03.9 ; Hypercholesterolemia E78.0 ; Hypertension I10 and Depression F32.9 [place] [id number] [place] [address] 52959- 2200 Jan, [place] [id number] [place] [address] 38870- 7166 Jan, [place] [id number] [place] [address] 59454- 8885 Jan, HTN (hypertension) I10 ; Encounter for immunization Z23 ; Hypothyroid E03.9 ; Hypercholesterolemia E78.0 and Depression F32.9 [facility] [address] [place] [address] [id number] Jan, Dental examination Z01.20 [facility] [id number] [place] [address] 61748- 0569 Oct, [facility] [address] 08066- 2839 Oct, [facility] [id number] [place] [address] 31704- 9332 Oct, Hypothyroidism 244.9 ; Essential hypertension 401.9 ; Depression 311 ; Varicose ulcer (lower extremity) 454.0 and Hypercholesteremia 272.0 [facility] [id number] [place] [address] 60759- 1821 Jul, [facility] [id number] [place] [address] 75673- 4766 Jul, [facility] [id number] [place] [address] 53111- 7829 Feb, [facility] [id number] [place] [address] 43649- 4667 Feb, [facility] [address] [place] [address] 95320- 7736 Feb, [facility] [id number] [place] [address] 31670- 2390 Feb, [facility] [id number] [place] [address] 43996- 2267 Feb, [facility] [id number] [place] [address] 18803- 1049 Feb, [facility] [id number] [place] [address] 91259- 7947 Nov, [facility] [id number] [place] [address] 57751- 4610 Nov, [facility] [place] [facility] [address] [id number] [place] [address]- 1021 Nov, [facility] [place] [facility] [address] [id number] [place] [address]- 9719 Nov, [facility] [place] [facility] [address] [id number] [place] [address]- 7751 Nov, [facility] [place] [facility] [address] [id number] [place] [address]- 5932 Nov, [facility] [place] [facility] [address] [id number] [place] [address]- 7174 Nov, [facility] [place] [facility] [address] [id number] [place] [address]- 1069 Nov, [facility] [place] [facility] [address] [id number] [place] [address]- 7208 Nov, [facility] [place] [facility] [address] [id number] [place] [address]- 9387 Nov, [facility] [place] [facility] [address] [id number] [place] [address]- 5202 August, [facility] [place] [facility] [address] [id number] [place] [address]- 4328 August, [facility] [place] [facility] [address] [id number] [place] [address]- 0847 Oct, [facility] [place] [facility] [address] [id number] [place] [address]- 2345 Jul, [facility] [place] [facility] [address] [id number] [place] [address]- 0414 Jul, [facility] [place] [facility] [address] [id number] [place] [address]- 9427 Jul, [facility] [place] [facility] [address] [id number] [place] [address]- 8848 Jul, [facility] [place] [facility] [address] [id number] [place] [address]- 4660 28 Jun, 2012 [facility] [address] [id number] [place] [address]- 7595 27 Jun, 2012 [facility] [place] [facility] [address] [id number] [place] [address]- 3086 27 Jun, 2012 [facility] [address] [id number] [place] [address]- 7736 06 Jun, 2012 [facility] [place] [facility] [address] [id number] [place] [address]- 0038 06 Jun, 2012 [facility] [address] [id number] [place] [address]- 4210 May, [facility] [address] [id number] [place] [address]- 9586 Apr, [facility] [address] [id number] [place] [address]- 4591 Apr, [facility] [address] [id number] [place] [address]- 5888 Apr, [facility] [address] [id number] [place] [address]- 3441 Apr, [facility] [address] [id number] [place] [address]- 9128 19 Mar, 2012 [facility] [address] [id number] [place] [address]- 8575 19 Mar, 2012 [facility] [address] [id number] [place] [address]- 4543 18 Mar, 2012 [facility] [place] [facility] [address] [id number] [place] [address]- 8126 [address], [address] [facility] [place] [facility] [address] [id number] [place] [address]- 0856 14 Mar, 2012 [facility] [place] [facility] [address] [id number] [place] [address]- 3546 Mar, [facility] [place] [facility] [address] [id number] [place] [address]- 6069 Mar, [facility] [place] [facility] [address] [id number] [place] [address]- 0632 Mar, [facility] [place] [facility] [address] [id number] [place] [address]- 4636 Mar, [facility] [place] [facility] [address] [id number] [place] [address]- 3264 Mar, [facility] [place] [facility] [address] [id number] [place] [address]- 1087 Mar, [facility] [place] [facility] [address] [id number] [place] [address]- 9219 Mar, [facility] [place] [facility] [address] [id number] [place] [address]- 8951 Mar, [facility] [place] [facility] [address] [id number] [place] [address]- 3900 Feb, [facility] [place] [facility] [address] [id number] [place] [address]- 5770 Feb, [facility] [place] [facility] [address] [id number] [place] [address]- 3720 Feb, [facility] [place] [facility] [address] [id number], [place] [address]- 5892 Feb, [facility] [place] [facility] [address] [id number], [place] [address]- 5590 Feb, [facility] [place] [facility] [address] [id number] [place] [address]- 0071 Feb, [facility] [place] [facility] [address] [id number] [place] [address]- 6598 Feb, [facility] [place] [facility] [address] [id number] [place] [address]- 8674 Feb, [facility] [place] [facility] [address] [id number] [place] [address]- 5898 Feb, [facility] [place] [facility] [address] [id number] [place] [address]- 1372 Feb, [facility] [place] [facility] [address] [id number] [place] [address]- 0844 Feb, [facility] [place] [facility] [address] [id number] [place] [address]- 8323 Feb, [facility] [place] [facility] [address] [id number] [place] [address]- 5139 Feb, [facility] [place] [facility] [address] [id number] [place] [address]- 4917 Feb, [facility] [place] [facility] [address] [id number] [place] [address]- 6480 Jan, [facility] [place] [facility] [address] [id number] [place] [address]- 1949 Jan, [facility] [place] [facility] [address] [id number] [place] [address]- 2074 Jan, [facility] [place] [facility] [address] [id number] [place] [address]- 7009 Jan, [facility] [place] [facility] [address] [facility] [id number] [place] [address]- 6037 Jan, [facility] [place] [facility] [address] [id number] [place] [address]- 4681 Jan, [facility] [place] [facility] [address] [id number] [place] [address]- 3424 Jan, [facility] [place] [facility] [address] [id number] [place] [address]- 8173 Oct, [facility] [place] [facility] [address] [id number] [place] [address]- 3302 Oct, [facility] [place] [facility] [address] [id number] [place] [address]- 6411 Oct, [facility] [address] [facility] [id number] [place] [address]- 5555 Jul, [facility] [address] [facility] [id number] [address]- 8419 Jan, [facility] [address] [facility] [id number] [place] [address]- 6523 Jul, IMMUNIZATIONS No Known Immunizations SOCIAL HISTORY Never Assessed REASON FOR VISIT Medication refill request PLAN OF CARE VITAL SIGNS MEDICATIONS Medication Instructions Dosage Frequency Start Date End Date Duration Status Atorvastatin Calcium 40 mg Orally Once a day 1 tablet 24h Jan, 90 days Active RESULTS No Results PROCEDURES No Known procedures INSTRUCTIONS MEDICATIONS ADMINISTERED No Known Medications MEDICAL (GENERAL) HISTORY Type Description Date Medical History Hypothyroidism Medical History hypertension Medical History asthma Surgical History cholecystectomy Surgical History tubal ligation Surgical History vein ligation Surgical History thyroidectomy, complete Hospitalization History surgeries
--- OUTSIDE RECORDS SUMMARY | 2018-04-20 08:25 | XMS REPORT ---
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 Name Role Phone STACIE BEAVERS Unavailable PROBLEMS Type Condition ICD9-CM Code AYR58-HI Code Onset Dates Condition Status SNOMED Code Problem Irritable bowel syndrome with diarrhea K58.0 Active 269981512 Problem Gastroesophageal reflux disease without esophagitis K21.9 Active 972721540 Problem Sciatica of left side M54.32 Active 48311694 Problem PVD (peripheral vascular disease) I73.9 Active 233656427 Problem Essential (primary) hypertension I10 Active 07144881 Problem Other chronic pain G89.29 Active 18155923 Problem Acquired hypothyroidism E03.9 Active 436407813 Problem Hypertriglyceridemia E78.1 Active 784239481 Problem Pain in joint of right shoulder M25.511 Active 208332817 Problem Recurrent major depressive disorder, in partial remission F33.41 Active 13940720 Problem Overactive bladder N32.81 Active 135562844 ALLERGIES No Information ENCOUNTERS Encounter Location Date Diagnosis [facility] [place] [address] [address] Oct, [facility] [place] [address], [place] [address] Oct, [facility] [place] [id number] [place] [address]- 6396 Oct, Overactive bladder N32.81 [facility] [place] [address] [place] [id number] [place] [address]9511- 0241 Sep, [facility] [place] [id number] [place] [address]- [address] Sep, [facility] [place] [id number] [place] [address]29- 9377 Sep, Essential (primary) hypertension I10 ; Acquired hypothyroidism E03.9 ; Hypertriglyceridemia E78.1 ; Overactive bladder N32.81 ; Irritable bowel syndrome with diarrhea K58.0 ; Recurrent major depressive disorder, in partial remission F33.41 ; Pain in right shoulder M25.511 ; Other chronic pain G89.29 ; Low back pain M54.5 ; Reactive airway disease that is not asthma R09.89 and Encounter for immunization Z23 [place] [address] [address] August, Hypertriglyceridemia E78.1 [facility] [address] [address] Jun, Cough R05 and Bronchitis J40 [address] [address] Jun, [place] [address] [address] Jan, Hypothyroid E03.9 ; Depression F32.9 ; PVD (peripheral vascular disease) I73.9 ; Essential (primary) hypertension I10 ; Irritable bowel syndrome with diarrhea K58.0 ; Gastroesophageal reflux disease without esophagitis K21.9 ; Hypertriglyceridemia E78.1 ; Sciatica of left side M54.32 ; Elevated hemoglobin A1c R73.09 ; Overactive bladder N32.81 and Encounter for immunization Z23 [place] [address] [id number] [place] [address]83- 5203 Sep, [place] [id number] [place] [address]84- 8469 Sep, Hypothyroid E03.9 ; Depression F32.9 ; PVD (peripheral vascular disease) I73.9 ; Hypertension I10 ; Essential (primary) hypertension I10 ; Edema R60.9 ; Irritable bowel syndrome with diarrhea K58.0 ; Gastroesophageal reflux disease without esophagitis K21.9 ; Pain in joint of right shoulder M25.511 ; Hypercholesterolemia E78.0 and Tooth abscess K04.7 [place] [id number] [place] [address] August, Essential (primary) hypertension I10 ; Hypothyroid E03.9 ; Irritable bowel syndrome with diarrhea K58.0 and Hypercholesterolemia E78.0 [place] [address] [id number] [place] [address]- 1131 May, Hypothyroid E03.9 ; PVD (peripheral vascular disease) I73.9 ; Hypertension I10 ; Irritable bowel syndrome with diarrhea K58.0 ; Edema R60.9 ; Essential (primary) hypertension I10 ; Hypercholesterolemia E78.0 ; Depression F32.9 and Gastroesophageal reflux disease without esophagitis K21.9 [place] [address] [address]- [address] Mar, [place] [address] [address]- 9[address] Jan, [place] [address] 8[address]- [address] Dec, Hypothyroid E03.9 ; Depression F32.9 ; Hypercholesterolemia E78.0 ; PVD (peripheral vascular disease) I73.9 ; Hypertension I10 ; Essential ( primary) hypertension I10 ; Edema R60.9 ; Sciatica of left side M54.32 ; Irritable bowel syndrome with diarrhea K58.0 and Encounter for immunization Z23 [place] [id number] [place] [address] 78032- 0689 Dec, [place] [address] [id number] [place] [address] 62390- 6896 Dec, [place] [address] [address] [id number] [place] [address] 60778- 5991 Dec, [place] [address] [address] Dec, Adverse drug reaction, initial encounter T88.7XXA and Sciatica of left side M54.32 [place] [address] [address]- [address] Nov, [place] [id number] [place] [address] 75421- 4323 Nov, [place] [address] [id number] [place] [address] 37879- 6067 Nov, [place] [address] [id number] [place] [address] 59539- 0382 Oct, [place] [address] [address]83- 9995 Oct, Sciatica of left side M54.32 and Irritable bowel syndrome with diarrhea K58.0 [place] [address] 7[address]- [address] Jun, Hypercholesterolemia E78.0 ; Hypothyroid E03.9 ; Essential ( primary) hypertension I10 ; Depression F32.9 ; PVD (peripheral vascular disease ) I73.9 ; Decubital ulcer L89.90 and Edema R60.9 [place] [id number] [place] [address] 08774- 4323 May, [place] [address] [id number] [place] [address] 68124- 5145 May, PVD (peripheral vascular disease) I73.9 and Decubital ulcer L89.90 [place] [address] [address] [id number] [place] [address] 81589- 7725 May, PVD (peripheral vascular disease) I73.9 ; Cellulitis L03.90 ; Hypothyroid E03.9 ; Hypercholesterolemia E78.0 ; Hypertension I10 and Depression F32.9 [place] [address] [id number] [place] [address] 07696- 5503 Jan, [place] [address] [place] [id number] [place] [address] 01374- 1035 Jan, [place] [address] [address] [id number] [place] [address] 62528- 7551 15 Oct, 2015 HTN (hypertension) I10 ; Encounter for immunization Z23 ; Hypothyroid E03.9 ; Hypercholesterolemia E78.0 and Depression F32.9 [facility] [id number] [place] [id number] Jan, Dental examination Z01.20 [facility] [place] [id number] [place] [address] 60510- 8201 Oct, [facility] [place] [address] [address]- 4754 Oct, [facility] [place] [address] 6[address]75- 7662 Oct, Hypothyroidism 244.9 ; Essential hypertension 401.9 ; Depression 311 ; Varicose ulcer (lower extremity) 454.0 and Hypercholesteremia 272.0 [facility] [place] [address] [id number] [place] [address] 44309- 4041 Jul, [facility] [place] [address] [address]27- 2604 Jul, [facility] [place] [address] [id number] [place] [address] 39150- 2240 Feb, [facility] [place] [address] [id number] [place] [address] 40282- 1267 Feb, [facility] [place] [id number] [place] [address] 88523- 9464 Feb, [facility] [place] [address] [id number] [place] [address] 64937- 7411 Feb, [facility] [place] [id number] [place] [address] 80376- 4019 Feb, [facility] [place] [address] 46433- 9040 Feb, [facility] [place] [id number] [place] [address] 35991- 1671 Nov, [facility] [place] [address] 74106- 8145 Nov, [facility] [place] [facility] [address] [id number] [place] [address]- 4130 Nov, [facility] [place] [facility] [address] [id number] [place] [address]- 1527 Nov, [facility] [place] [facility] [address] [id number] [place] [address]- 1725 Nov, [facility] [place] [facility] [address] [id number] [place] [address]- 7232 Nov, [facility] [place] [facility] [address] [id number] [place] [address]- 0809 Nov, [facility] [place] [facility] [address] [id number] [place] [address]- 1004 Nov, [facility] [place] [facility] [address] [id number] [place] [address]- 1970 Nov, [facility] [place] [facility] [address] [id number] [place] [address]- 8630 Nov, [facility] [place] [facility] [address] [id number] [place] [address]- 1769 August, [facility] [place] [facility] [address] [id number] [place] [address]- 4903 August, [facility] [place] [facility] [address] [id number] [place] [address]- 0489 Oct, [facility] [place] [facility] [address] [id number] [place] [address]- 1220 Jul, [facility] [place] [facility] [address] [id number] [place] [address]- 1930 Jul, [facility] [place] [facility] [address] [id number] [place] [address]- 2493 Jul, [facility] [place] [facility] [address] [id number] [place] [address]- 3999 Jul, [facility] [place] [facility] [address] [id number] [place] [address]- 4728 28 Jun, 2012 [facility] [address] [id number] [place] [address]- 6251 27 Jun, 2012 [facility] [address] [id number] [place] [address]- 5086 27 Jun, 2012 [facility] [address] [id number] [place] [address]- 1407 06 Jun, 2012 [facility] [address] [id number] [place] [address]- 5419 06 Jun, 2012 [facility] [address] [id number] [place] [address]- 3438 May, [facility] [address] [id number] [place] [address]- 8877 Apr, [facility] [address] [id number] [place] [address]- 2712 Apr, [facility] [address] [id number] [place] [address]- 2790 Apr, [facility] [address] [id number] [place] [address]- 1726 Apr, [facility] [address] [id number] [place] [address]- 3674 Mar, [facility] [address] [id number] [place] [address]- 1560 19 Mar, 2012 [facility] [address] [id number] [place] [address]- 1173 18 Mar, 2012 [facility] [address] [id number] [place] [address]- 2678 18 Mar, 2012 [facility] [address] [id number] [place] [address]- 3255 14 Mar, 2012 [facility] [address] [id number] [place] [address] [address]207 Mar, [facility] [place] [facility] [address] [id number] [place] [address]- 0387 Mar, [facility] [place] [facility] [address] [id number] [place] [address]- 3276 Mar, [facility] [place] [facility] [address] [id number] [place] [address]- 4213 Mar, [facility] [place] [facility] [address] [id number] [place] [address]- 0424 Mar, [facility] [place] [facility] [address] [id number] [place] [address]- 7051 Mar, [facility] [place] [facility] [address] [id number] [place] [address]- 3817 Mar, [facility] [place] [facility] [address] [id number] [place] [address]- 1449 Mar, [facility] [place] [facility] [address] [id number] [place] [address]- 4568 Feb, [facility] [place] [facility] [address] [id number] [place] [address]- 8195 Feb, [facility] [place] [facility] [address] [id number] [place] [address]- 4345 Feb, [facility] [place] [facility] [address] [id number] [place] [address]- 1422 Feb, [facility] [place] [facility] [address] [id number] [place] [address]- 6726 Feb, [facility] [place] [facility] [address] [id number] [place] [address]- 2307 Feb, [facility] [place] [facility] [address] [id number] [place] [address]- 4777 Feb, [facility] [place] [facility] [address] [id number] [place] [address]- 4487 Feb, [facility] [place] [facility] [address] [id number] [place] [address]- 6769 Feb, [facility] [place] [facility] [address] [id number] [place] [address]- 4461 Feb, [facility] [place] [facility] [address] [id number] [place] [address]- 4997 Feb, [facility] [place] [facility] [address] [id number] [place] [address]- 3174 Feb, [facility] [place] [facility] [address] [id number] [place] [address]- 5977 Feb, [facility] [place] [facility] [address] [id number] [place] [address], [place] [address]- 4548 Feb, [facility] [place] [facility] [address] [id number] [place] [address]- 2564 Jan, [facility] [place] [facility] [address] [id number] [place] [address]- 3206 Jan, [facility] [place] [facility] [address] [id number] [place] [address]- 0247 Jan, [facility] [place] [facility] [address] [id number] [place] [address]- 4100 Jan, [facility] [place] [facility] [address] [facility] [id number] [place] [address]- 1815 Jan, [facility] [place] [facility] [address] [id number] [place] [address]- 3431 Jan, [facility] [place] [facility] [address] [id number], [place] [address]- 9765 Jan, [facility] [place] [facility] [address] [id number] [place] [address]- 2864 Oct, [facility] [place] [facility] [address] [facility] [id number] [place] [address]- 8990 Oct, [facility] [place] [facility] [address] [facility] [id number] [place] [address]- 7470 Oct, [facility] [place] [facility] [address] [facility] [id number] [place] [address]- 6757 Jul, [facility] [place] [address] [facility] [id number] [place] [address]- 7633 Jan, [facility] [place] [address] [facility] [id number] [place] [address]- 8949 Jul, IMMUNIZATIONS No Known Immunizations SOCIAL HISTORY Never Assessed REASON FOR VISIT Requests return call PLAN OF CARE VITAL SIGNS MEDICATIONS Unknown Medications RESULTS No Results PROCEDURES No Known procedures INSTRUCTIONS MEDICATIONS ADMINISTERED No Known Medications MEDICAL (GENERAL) HISTORY Type Description Date Medical History Hypothyroidism Medical History hypertension Medical History asthma Surgical History cholecystectomy Surgical History tubal ligation Surgical History vein ligation Surgical History thyroidectomy, complete Hospitalization History surgeries
--- OUTSIDE RECORDS SUMMARY | 2018-04-20 08:27 | XMS REPORT ---
Author Author NOAH WALSH [facility] [address] Address [address] [place] [address] Care Team Providers Care Broomcorn Seeder Name Role Phone WALSHNOAH Unavailable PROBLEMS Type Condition ICD9-CM Code LFW33-ND Code Onset Dates Condition Status SNOMED Code Problem Irritable bowel syndrome with diarrhea K58.0 Active 555215044 Problem Gastroesophageal reflux disease without esophagitis K21.9 Active 805831333 Problem Sciatica of left side M54.32 Active 53137310 Problem PVD (peripheral vascular disease) I73.9 Active 922161774 Problem Essential (primary) hypertension I10 Active 77943449 Problem Other chronic pain G89.29 Active 69952980 Problem Acquired hypothyroidism E03.9 Active 994439474 Problem Hypertriglyceridemia E78.1 Active 765279798 Problem Pain in joint of right shoulder M25.511 Active 482926916 Problem Recurrent major depressive disorder, in partial remission F33.41 Active 22937749 Problem Overactive bladder N32.81 Active 171531032 ALLERGIES Substance Reaction Event Type Date Status Vistaril hives Drug Allergy Jun, Active Vaseline itching Drug Allergy Jun, Active Neosporin hives Drug Allergy Jun, Active Nabumetone hives/rash Drug Allergy Jun, Active ENCOUNTERS Encounter Location Date Diagnosis [facility] [id number], [place] [address] Oct, Overactive bladder N32.81 [facility] [id number], [place] [address] Sep, [facility] [id number] [place] [address] Sep, [facility] [id number], [place] [address] Sep, Essential (primary) hypertension I10 ; Acquired hypothyroidism E03.9 ; Hypertriglyceridemia E78.1 ; Overactive bladder N32.81 ; Irritable bowel syndrome with diarrhea K58.0 ; Recurrent major depressive disorder, in partial remission F33.41 ; Pain in right shoulder M25.511 ; Other chronic pain G89.29 ; Low back pain M54.5 ; Reactive airway disease that is not asthma R09.89 and Encounter for immunization Z23 [place] [id number] [place] [address] 79[address] August, Hypertriglyceridemia E78.1 [facility] [address] [address] Jun, Cough R05 and Bronchitis J40 [address] [address] [address] [address] Jun, [place] [address] [address] Jan, Hypothyroid E03.9 ; Depression F32.9 ; PVD (peripheral vascular disease) I73.9 ; Essential (primary) hypertension I10 ; Irritable bowel syndrome with diarrhea K58.0 ; Gastroesophageal reflux disease without esophagitis K21.9 ; Hypertriglyceridemia E78.1 ; Sciatica of left side M54.32 ; Elevated hemoglobin A1c R73.09 ; Overactive bladder N32.81 and Encounter for immunization Z23 [place] [id number] [place] [address] 6[address]- 3474 Sep, [place] [id number] [place] [address] 90092- 9642 Sep, Hypothyroid E03.9 ; Depression F32.9 ; PVD (peripheral vascular disease) I73.9 ; Hypertension I10 ; Essential (primary) hypertension I10 ; Edema R60.9 ; Irritable bowel syndrome with diarrhea K58.0 ; Gastroesophageal reflux disease without esophagitis K21.9 ; Pain in joint of right shoulder M25.511 ; Hypercholesterolemia E78.0 and Tooth abscess K04.7 [place] [address] [address] August, Essential (primary) hypertension I10 ; Hypothyroid E03.9 ; Irritable bowel syndrome with diarrhea K58.0 and Hypercholesterolemia E78.0 [place] [address] [address] May, Hypothyroid E03.9 ; PVD (peripheral vascular disease) I73.9 ; Hypertension I10 ; Irritable bowel syndrome with diarrhea K58.0 ; Edema R60.9 ; Essential (primary) hypertension I10 ; Hypercholesterolemia E78.0 ; Depression F32.9 and Gastroesophageal reflux disease without esophagitis K21.9 [place] [address] [address] Mar, [place] [address] [address] Jan, [place] [address] [address] Dec, Hypothyroid E03.9 ; Depression F32.9 ; Hypercholesterolemia E78.0 ; PVD (peripheral vascular disease) I73.9 ; Hypertension I10 ; Essential ( primary) hypertension I10 ; Edema R60.9 ; Sciatica of left side M54.32 ; Irritable bowel syndrome with diarrhea K58.0 and Encounter for immunization Z23 [place] [id number] [place] [address]- 9322 Dec, [place] [id number] [place] [address]36- 4128 Dec, [place] [id number] [place] [address] 67614- 0095 Dec, [place] [address] [address] Dec, Adverse drug reaction, initial encounter T88.7XXA and Sciatica of left side M54.32 [place] [id number] [place] [address] 7[address]23- 7604 Nov, [place] [address], [place] [address] Nov, [place] [id number] [place] [address]- 2017 Nov, [facility] [id number] [place] [address] 39248- 5317 Oct, [place] [id number] [place] [address] 50[address]- 8102 Oct, Sciatica of left side M54.32 and Irritable bowel syndrome with diarrhea K58.0 [place] [id number] [place] [address] 39835- 0479 Jun, Hypercholesterolemia E78.0 ; Hypothyroid E03.9 ; Essential ( primary) hypertension I10 ; Depression F32.9 ; PVD (peripheral vascular disease ) I73.9 ; Decubital ulcer L89.90 and Edema R60.9 [place] [id number] [place] [address] 95[address]- 6995 May, [place] [id number] [place] [address] 69268- 3834 May, PVD (peripheral vascular disease) I73.9 and Decubital ulcer L89.90 [place] [id number] [place] [address]- 7277 May, PVD (peripheral vascular disease) I73.9 ; Cellulitis L03.90 ; Hypothyroid E03.9 ; Hypercholesterolemia E78.0 ; Hypertension I10 and Depression F32.9 [place] [id number] [place] [address] 60[address]- 5103 Jan, [place] [id number] [place] [address] 14930- 4027 Jan, [place] [id number] [place] [address] 33187- 1255 Jan, HTN (hypertension) I10 ; Encounter for immunization Z23 ; Hypothyroid E03.9 ; Hypercholesterolemia E78.0 and Depression F32.9 [facility] [address] [id number] Jan, Dental examination Z01.20 [facility] [address], [place] [address] Oct, [facility] [id number] [place] [address] 43606- 8039 Oct, [facility] [id number] [place] [address] 74688- 4961 Oct, Hypothyroidism 244.9 ; Essential hypertension 401.9 ; Depression 311 ; Varicose ulcer (lower extremity) 454.0 and Hypercholesteremia 272.0 [facility] [id number] [place] [address] 66563- 0895 Jul, [facility] [id number] [place] [address] 69974- 4491 Jul, [facility] [id number] [place] [address] 74382- 1362 Feb, [facility] [id number] [place] [address] 00271- 4926 Feb, [facility] [id number] [place] [address] 56955- 1916 Feb, [facility] [id number] [place] [address] 24478- 0737 Feb, [facility] [id number] [place] [address] 61835- 7868 Feb, [facility] [id number] [place] [address] 43797- 9181 Feb, [facility] [id number] [place] [address] 11476- 7991 Nov, [facility] [id number] [place] [address] 64029- 9051 Nov, [facility] [place] [facility] [address] [id number] [place] [address]- 7563 Nov, [facility] [place] [facility] [address] [id number] [place] [address]- 9786 Nov, [facility] [place] [facility] [address] [id number] [place] [address]- 7531 Nov, [facility] [place] [facility] [address] [id number] [place] [address]- 5886 Nov, [facility] [place] [facility] [address] [id number] [place] [address]- 9578 Nov, [facility] [place] [facility] [address] [id number] [place] [address]- 0334 Nov, [facility] [place] [facility] [address] [id number] [place] [address]- 2878 Nov, [facility] [place] [facility] [address] [id number] [place] [address]- 7089 Nov, [facility] [place] [facility] [address] [id number] [place] [address]- 9840 August, [facility] [place] [facility] [address] [id number] [place] [address]- 4596 August, [facility] [place] [facility] [address] [id number] [place] [address]- 0834 Oct, [facility] [place] [facility] [address] [id number] [place] [address]- 0329 Jul, [facility] [place] [facility] [address] [id number] [place] [address]- 3468 Jul, [facility] [place] [facility] [address] [id number] [place] [address]- 2767 Jul, [facility] [place] [facility] [address] [id number] [place] [address]- 3475 Jul, [facility] [place] [facility] [address] [id number] [place] [address]- 7513 Jun, [facility] [address] [id number] [place] [address]- 0717 Jun, [facility] [place] [facility] [address] [id number] [place] [address]- 9019 Jun, [facility] [address] [id number] [place] [address]- 6443 Jun, [facility] [place] [facility] [address] [id number] [place] [address]- 4155 Jun, [facility] [address] [id number] [place] [address]- 4564 May, [facility] [address] [id number] [place] [address]- 6988 Apr, [facility] [address] [id number] [place] [address]- 1473 Apr, [facility] [address] [id number] [place] [address]- 1066 Apr, [facility] [address] [id number] [place] [address]- 6922 Apr, [facility] [address] [id number] [place] [address]- 5705 Mar, [facility] [address] [id number] [place] [address]- 0194 19 Mar, 2012 [facility] [place] [facility] [address] [id number] [place] [address]- 3949 18 Mar, 2012 [facility] [place] [facility] [address] [id number] [place] [address]- 5318 18 Mar, 2012 [facility] [place] [facility] [address] [id number] [place] [address] 14 Mar, 2012 [facility] [place] [facility] [address] [id number] [place] [address]707 14 Mar, 2012 [facility] [place] [facility] [address] [id number] [place] [address]- 1212 10 Mar, 2012 [facility] [place] [facility] [address] [id number] [place] [address]- 8699 Mar, [facility] [place] [facility] [address] [id number] [place] 0336 Mar, [facility] [place] [facility] [address] [id number] [place] [address]- 7126 Mar, [facility] [place] [facility] [address] [id number] [place] [address]- 4464 Mar, [facility] [place] [facility] [address] [id number] [place] [address]- 3845 Mar, [facility] [place] [facility] [address] [id number] [place] [address]- 6218 Mar, [facility] [place] [facility] [address] [id number] [place] [address]- 9348 Feb, [facility] [place] [facility] [address] [id number] [place] [address]- 8298 Feb, [facility] [place] [facility] [address] [id number] [place] [address]- 8347 Feb, [facility] [place] [facility] [address] [id number] [place] [address]- 6407 Feb, [facility] [place] [facility] [address] [id number] [place] [address]- 3011 Feb, [facility] [place] [facility] [address] [id number] [place] [address]- 1627 Feb, [facility] [place] [facility] [address] [id number] [place] [address]- 4537 Feb, [facility] [place] [facility] [address] [id number] [place] [address]- 7712 Feb, [facility] [place] [facility] [address] [id number] [place] [address]- 4785 Feb, [facility] [place] [facility] [address] [id number] [place] [address]- 3314 Feb, [facility] [place] [facility] [address] [id number] [place] [address]- 8843 Feb, [facility] [place] [facility] [address] [id number] [place] [address]- 1712 Feb, [facility] [place] [facility] [address] [id number] [place] [address]- 8692 Feb, [facility] [place] [facility] [address] [id number] [place] [address]- 0801 Feb, [facility] [place] [facility] [address] [id number] [place] [address]- 3983 Jan, [facility] [place] [facility] [address] [id number] [place] [address]- 4111 Jan, [facility] [place] [facility] [address] [id number] [place] [address]- 1780 Jan, [facility] [place] [facility] [address] [id number] [place] [address]- 4026 Jan, [facility] [place] [facility] [address] [id number] [place] [address]- 1991 Jan, [facility] [place] [facility] [address] [id number] [address]- 1889 Jan, [facility] [place] [facility] [address] [id number], [place] [address]- 6358 Jan, [facility] [place] [facility] [address] [id number] [place] [address]- 3365 Oct, [facility] [place] [facility] [address] [id number], [place] [address]- 2730 Oct, [facility] [place] [facility] [address] [facility] [id number] [place] [address]- 7071 Oct, [facility] [place] [facility] [address] [facility] [id number] [place] [address]- 0444 18 Jul, 2010 [facility] [address] [facility] [id number] [place] [address]- 1729 Jan, [facility] [address] [facility] [id number] [place] [address]- 5081 Jul, IMMUNIZATIONS No Known Immunizations SOCIAL HISTORY Never Assessed REASON FOR VISIT flu symptoms Pt c/o cough, fever, body aches which all started 3-4 days ago RAVI Yip PLAN OF CARE Activity Details Follow Up prn Reason: VITAL SIGNS Height 62 in 2017-06-25 Weight 211.2 lbs 2017-06-25 Temperature 98.4 degrees Fahrenheit 2017-06-25 Heart Rate 84 bpm 2017-06-25 Respiratory Rate 20 2017-06-25 BMI 38.62 kg/m2 2017-06-25 Blood pressure systolic 122 mmHg 2017-06-25 Blood pressure diastolic 80 mmHg 2017-06-25 MEDICATIONS Medication Instructions Dosage Frequency Start Date End Date Duration Status Ranitidine HCl 150 MG Orally Once a day 1 capsule at bedtime 24h 90 days Active Arthritis Pain Relief 650 MG Orally Once a day 2 tabs 24h Active PredniSONE 20 MG Orally Once a day 2 tablet 24h 5 day(s) Active Ibuprofen 200 MG Orally 2 times a day 2 tablets as needed 12h Active Lisinopril 20 mg Orally Once a day 1 tablet 24h Jun, 90 days Active Atorvastatin Calcium 40 mg Orally Once a day 1 tablet 24h 31 Jan, 2017 90 days Active Multi For Her 50+ Orally Once a day 1 tablet 24h Active Levothyroxine Sodium 112 MCG Orally Once a day 1 tab 24h 90 days Active Colestipol HCl 1 GM Orally Once a day 2 tablets 24h 30 Dec, 2015 90 days Active Citalopram Hydrobromide 40 mg Orally Once a day TAKE ONE-HALF TABLET BY MOUTH ONCE DAILY 24h 90 days Active Allergy Relief 180 MG Orally Once a day 1 tablet as needed 24h Active Lisinopril-Hydrochlorothiazide 20-25 mg Orally Once a day TAKE ONE TABLET BY MOUTH ONCE DAILY 24h 90 days Active Azithromycin 250 MG Orally Once a day 2 tablets on the first day, then 1 tablet daily for 4 days 24h 5 day(s) Active RESULTS Name Result Date Reference Range INFLUENZA A & B (IN HOUSE) INFLUENZA A negative INFLUENZA B negative Control + Lot # [id number] Exp date [id number] Xray : Chest 2 View (IN HOUSE) 2017-06-25 PROCEDURES Procedure Date Ordered Result Body Site INFLUENZA ASSAY W/OPTIC June 25, 2017 X-RAY EXAM CHEST 2 VIEWS June 25, 2017 INSTRUCTIONS MEDICATIONS ADMINISTERED No Known Medications MEDICAL (GENERAL) HISTORY Type Description Date Medical History Hypothyroidism Medical History hypertension Medical History asthma Surgical History cholecystectomy Surgical History tubal ligation Surgical History vein ligation Surgical History thyroidectomy, complete Hospitalization History surgeries
--- OUTSIDE RECORDS SUMMARY | 2018-04-20 08:30 | XMS REPORT ---
Author Author BEAVERSSTACIE Edouard Organization [facility] Address [address] [place] [address] Care Team Providers Care Utility Accounts Director Name Role Phone STACIE BEAVERS Unavailable PROBLEMS Type Condition ICD9-CM Code [id number] Code Onset Dates Condition Status SNOMED Code Problem Irritable bowel syndrome with diarrhea K58.0 Active 992747420 Problem Gastroesophageal reflux disease without esophagitis K21.9 Active 857796513 Problem Sciatica of left side M54.32 Active 30130809 Problem PVD (peripheral vascular disease) I73.9 Active 607994502 Problem Essential (primary) hypertension I10 Active 78708384 Problem Other chronic pain G89.29 Active 10955308 Problem Acquired hypothyroidism E03.9 Active 246291692 Problem Hypertriglyceridemia E78.1 Active 609426497 Problem Pain in joint of right shoulder M25.511 Active 997834383 Problem Recurrent major depressive disorder, in partial remission F33.41 Active 63644360 Problem Overactive bladder N32.81 Active 307974631 ALLERGIES No Information ENCOUNTERS Encounter Location Date Diagnosis [place] [id number] [place] [address]87- 7627 Oct, [facility] [address] [place] [address] [id number] [place] [address] 44794- 6554 Sep, [facility] [id number] [place] [address] 52383- 9427 Sep, [facility] [id number] [place] [address] 61070- 6534 Sep, Essential (primary) hypertension I10 ; Acquired hypothyroidism E03.9 ; Hypertriglyceridemia E78.1 ; Overactive bladder N32.81 ; Irritable bowel syndrome with diarrhea K58.0 ; Recurrent major depressive disorder, in partial remission F33.41 ; Pain in right shoulder M25.511 ; Other chronic pain G89.29 ; Low back pain M54.5 ; Reactive airway disease that is not asthma R09.89 and Encounter for immunization Z23 [place] [address] [address] August, Hypertriglyceridemia E78.1 [facility] [address] [address] Jun, Cough R05 and Bronchitis J40 [place] [address] [address]10- 8321 Jun, [place] [address] 26[address]- 7963 Jan, Hypothyroid E03.9 ; Depression F32.9 ; PVD (peripheral vascular disease) I73.9 ; Essential (primary) hypertension I10 ; Irritable bowel syndrome with diarrhea K58.0 ; Gastroesophageal reflux disease without esophagitis K21.9 ; Hypertriglyceridemia E78.1 ; Sciatica of left side M54.32 ; Elevated hemoglobin A1c R73.09 ; Overactive bladder N32.81 and Encounter for immunization Z23 [place] [address] 9[address]84- 1423 Sep, [place] [address] 21497- 9526 Sep, Hypothyroid E03.9 ; Depression F32.9 ; PVD (peripheral vascular disease) I73.9 ; Hypertension I10 ; Essential (primary) hypertension I10 ; Edema R60.9 ; Irritable bowel syndrome with diarrhea K58.0 ; Gastroesophageal reflux disease without esophagitis K21.9 ; Pain in joint of right shoulder M25.511 ; Hypercholesterolemia E78.0 and Tooth abscess K04.7 [place] [address] 9[address]12- 1308 August, Essential (primary) hypertension I10 ; Hypothyroid E03.9 ; Irritable bowel syndrome with diarrhea K58.0 and Hypercholesterolemia E78.0 [place] [address] 76719- 8698 May, Hypothyroid E03.9 ; PVD (peripheral vascular disease) I73.9 ; Hypertension I10 ; Irritable bowel syndrome with diarrhea K58.0 ; Edema R60.9 ; Essential (primary) hypertension I10 ; Hypercholesterolemia E78.0 ; Depression F32.9 and Gastroesophageal reflux disease without esophagitis K21.9 [place] [address] [place] [id number] [place] [address] 53365- 7635 Mar, [place] [address] [place] [id number] [place] [address] 77530- 6190 Jan, [place] [address] [place] [id number] [place] [address] 94546- 0097 Dec, Hypothyroid E03.9 ; Depression F32.9 ; Hypercholesterolemia E78.0 ; PVD (peripheral vascular disease) I73.9 ; Hypertension I10 ; Essential ( primary) hypertension I10 ; Edema R60.9 ; Sciatica of left side M54.32 ; Irritable bowel syndrome with diarrhea K58.0 and Encounter for immunization Z23 [place] [address] [place] [id number] [place] [address] 47389- 6988 Dec, [place] [address] [place] [id number] [place] [address] 79371- 7210 Dec, [place] [address] [place] [id number] [place] [address] 22943- 0531 Dec, [place] [address] [place] [id number] [place] [address] 27866- 6911 Dec, Adverse drug reaction, initial encounter T88.7XXA and Sciatica of left side M54.32 [place] [address] 64186- 1333 Nov, [place] [address] [place] [id number] [place] [address] 26826- 4930 Nov, [place] [address] [place] [id number] [place] [address] 15487- 6311 Nov, [place] [address] [place] [id number] [place] [address] 01171- 8894 Oct, [place] [address] 13373- 1131 Oct, Sciatica of left side M54.32 and Irritable bowel syndrome with diarrhea K58.0 [place] [address] 64940- 0636 Jun, Hypercholesterolemia E78.0 ; Hypothyroid E03.9 ; Essential ( primary) hypertension I10 ; Depression F32.9 ; PVD (peripheral vascular disease ) I73.9 ; Decubital ulcer L89.90 and Edema R60.9 [place] [address] [place] [id number] [place] [address] 03014- 7223 May, [place] [address] [place] [id number] [place] [address] 87674- 1598 May, PVD (peripheral vascular disease) I73.9 and Decubital ulcer L89.90 [place] [address] [place] [id number] [place] [address] 00710- 0433 May, PVD (peripheral vascular disease) I73.9 ; Cellulitis L03.90 ; Hypothyroid E03.9 ; Hypercholesterolemia E78.0 ; Hypertension I10 and Depression F32.9 [place] [address] [place] [id number] [place] [address] 91301- 3086 Jan, [place] [address] [place] [id number] [place] [address] 52201- 4886 Jan, [place] [address] [place] [id number] [place] [address] 43000- 7620 Jan, HTN (hypertension) I10 ; Encounter for immunization Z23 ; Hypothyroid E03.9 ; Hypercholesterolemia E78.0 and Depression F32.9 [facility] [address] [place] [address] [id number] Jan, Dental examination Z01.20 [place] [address] [address] 4299 16 Oct, 2014 [facility] [address] [place] [address] 83100- 0370 Oct, [facility] [address] [address] 4693 Oct, Hypothyroidism 244.9 ; Essential hypertension 401.9 ; Depression 311 ; Varicose ulcer (lower extremity) 454.0 and Hypercholesteremia 272.0 [facility] [address] [facility] [id number] [place] [address]- 0538 14 Jul, 2014 [facility] [address] [place] [address] [id number] [place] [address] 33848- 3863 Jul, [facility] [address] [address]- 2384 Feb, [facility] [address] [place] [address] [id number] [place] [address] 51420- 5838 Feb, [facility] [address] [address]- 5364 Feb, [facility] [address] [address]- 1730 Feb, [facility] [address] [address]- 7571 Feb, [facility] [address] [address]- 2403 Feb, [facility] [address] [place] [id number] [address] 8455 Nov, [facility] [address] [address]- 3263 Nov, [facility] [address] [address]- 0505 Nov, [facility] [address] [address]- 6002 Nov, [facility] [place] [facility] [address] [id number] [place] [address]- 7607 Nov, [facility] [place] [facility] [address] [id number] [place] [address]- 2660 Nov, [facility] [place] [facility] [address] [id number] [place] [address]- 3940 Nov, [facility] [place] [facility] [address] [id number] [place] [address]- 0584 Nov, [facility] [place] [facility] [address] [id number] [place] [address]- 3560 Nov, [facility] [place] [facility] [address] [id number] [place] [address]- 7177 Nov, [facility] [place] [facility] [address] [id number] [place] [address]- 1061 August, [facility] [place] [facility] [address] [id number] [place] [address]- 0939 August, [facility] [place] [facility] [address] [id number] [place] [address]- 1292 Oct, [facility] [place] [facility] [address] [id number] [place] [address]- 7497 Jul, [facility] [place] [facility] [address] [id number] [place] [address]- 2541 Jul, [facility] [place] [facility] [address] [id number] [place] [address]- 3696 Jul, [facility] [place] [facility] [address] [id number] [place] [address]- 3716 Jul, [facility] [place] [facility] [address] [id number] [place] [address]- 7246 Jun, [facility] [place] [facility] [address] [id number] [place] [address]- 5699 Jun, [facility] [place] [facility] [address] [id number] [place] [address]- 4934 Jun, [facility] [address] [id number] [place] [address]- 5189 Jun, [facility] [address] [id number] [place] [address]- 4965 Jun, [facility] [address] [id number] [place] [address]- 6898 May, [facility] [place] [facility] [address] [id number] [place] [address]- 8014 Apr, [facility] [address] [id number] [place] [address]- 3807 Apr, [facility] [address] [id number] [place] [address]- 0723 Apr, [facility] [address] [id number] [place] [address]- 5347 Apr, [facility] [address] [id number] [place] [address]- 7796 Mar, [facility] [address] [id number] [place] [address]- 3268 19 Mar, 2012 [facility] [address] [id number] [place] [address]- 8649 18 Mar, 2012 [facility] [address] [id number] [place] [address]- 8527 18 Mar, 2012 [facility] [place] [facility] [address] [id number] [place] [address]- 2548 14 Mar, 2012 [facility] [address] [id number] [place] [address]- 7082 14 Mar, 2012 [facility] [place] [facility] [address] [id number] [place] [address]- 6042 10 Mar, 2012 [facility] [address] [id number] [place] 8083 10 Mar, 2012 [facility] [place] [facility] [address] [id number] [place] [address]- 5762 Mar, [facility] [place] [facility] [address] [id number] [place] [address]- 5283 Mar, [facility] [place] [facility] [address] [id number] [place] [address]- 4026 Mar, [facility] [place] [facility] [address] [id number] [place] [address]- 6428 Mar, [facility] [place] [facility] [address] [id number] [place] [address]- 2007 Mar, [facility] [place] [facility] [address] [id number] [place] [address]- 9819 Feb, [facility] [place] [facility] [address] [id number] [place] [address]- 6243 Feb, [facility] [place] [facility] [address] [id number] [place] [address]- 3201 Feb, [facility] [place] [facility] [address] [id number] [place] [address]- 1972 Feb, [facility] [place] [facility] [address] [id number] [place] [address]- 7209 Feb, [facility] [place] [facility] [address] [id number] [place] [address]- 3778 Feb, [facility] [place] [facility] [address] [id number] [place] [address]- 5595 Feb, [facility] [place] [facility] [address] [id number] [place] [address]- 4656 Feb, [facility] [place] [facility] [address] [id number] [place] [address]- 3038 Feb, [facility] [place] [facility] [address] [id number] [place] [address]- 9880 Feb, [facility] [place] [facility] [address] [id number] [place] [address]- 3511 Feb, [facility] [place] [facility] [address] [id number] [place] [address]- 9677 Feb, [facility] [place] [facility] [address] [id number] [place] [address]- 0146 Feb, [facility] [place] [facility] [address] [facility] [id number] [place] [address]- 0745 Feb, [facility] [place] [facility] [address] [id number] [place] [address]- 4768 Jan, [facility] [place] [facility] [address] [id number] [place] [address]- 2644 Jan, [facility] [place] [facility] [address] [id number] [place] [address]- 8784 Jan, [facility] [place] [facility] [address] [id number] [place] [address]- 0518 Jan, [facility] [place] [facility] [address] [id number] [address]- 7822 Jan, [facility] [place] [facility] [address] [id number] [place] [address]- 5665 Jan, [facility] [place] [facility] [address] [facility] [id number] [place] [address]- 2213 Jan, [facility] [place] [facility] [address] [id number], [place] [address]- 6742 Oct, [facility] [place] [facility] [address] [id number], [place] [address]- 9851 Oct, [facility] [place] [facility] [address] [id number] [place] [address]- 7431 Oct, [facility] [place] [facility] [address] [facility] [id number], [place] [address]- 9838 Jul, [facility] [place] [facility] [address] [id number] [place] [address]- 6433 Jan, [facility] [place] [facility] [address] [facility] [id number] [place] [address]- 8675 Jul, IMMUNIZATIONS No Known Immunizations SOCIAL HISTORY [...]
--- OUTSIDE RECORDS SUMMARY | 2018-04-20 08:30 | XMS REPORT ---
Author Author JACQUES CHU [facility] eClinicalWorks Address Unknown Phone Unavailable Care Team Providers Care Senior Business Process Analyst Name Role Phone JACQUES [facility] CP Unavailable Allergies No Known Allergies Problems Problem Type Condition Code Onset Dates Condition Status Problem Hypothyroid E03.9 Active Problem Cellulitis L03.90 Active Problem Hypertension I10 Active Problem Irritable bowel syndrome with diarrhea K58.0 Active Problem Essential (primary) hypertension I10 Active Problem Sciatica of left side M54.32 Active Problem Screening for diabetes mellitus Z13.1 Active Problem PVD (peripheral vascular disease) I73.9 Active Problem Edema R60.9 Active Problem Decubital ulcer L89.90 Active Problem Depression F32.9 Active Problem Encounter for immunization Z23 Active Problem Hypercholesterolemia E78.0 Active Medications No Known Medications Results No Known Results Summary Purpose eClinicalWorks Submission
--- OUTSIDE RECORDS SUMMARY | 2018-04-20 08:30 | XMS REPORT ---
Author Author JACQUES CHU [facility] eClinicalWorks Address Unknown Phone Unavailable Care Team Providers Care It Service Delivery Manager Name Role Phone JACQUES CHU CP Unavailable Allergies, Adverse Reactions, Alerts Substance Reaction Event Type N.K.D.A. Info Not Available Non Drug Allergy Problems Problem Type Condition Code Onset Dates Condition Status Problem Hypercholesteremia 272.0 Active Problem Depression 311 Active Problem Varicose ulcer (lower extremity) 454.0 Active Problem Hypothyroid E03.9 Active Assessment Depression F32.9 Active Problem Hypercholesterolemia E78.0 Active Problem HTN (hypertension) I10 Active Problem Hypothyroidism 244.9 Active Problem Essential hypertension 401.9 Active Problem Encounter for immunization Z23 Active Problem Depression F32.9 Active Assessment Encounter for immunization Z23 Active Assessment HTN (hypertension) I10 Active Assessment Hypercholesterolemia E78.0 Active Assessment Hypothyroid E03.9 Active Problem Primary hypercoagulable state 289.81 Active Problem Venous embolism and thrombosis of unspecified deep vessels of lower extremity 453.40 Active Problem Unspecified breast screening V76.10 Active Problem Other abnormal glucose 790.29 Active Problem Screening for malignant neoplasm of the cervix V76.2 Active Problem Other malaise and fatigue 780.79 Active Medications Medication Code System Code Instructions Start Date End Date Status Dosage Lisinopril-Hydrochlorothiazide [facility] [address]-33 20-25 MG Orally Once a day Nov 07, 2013 take 1 tablet by Oral route 1 time per day Take in AM Synthroid [facility] [address]-04 112 MCG Orally Once a day Nov 07, 2013 1 tablet by Oral route 1 time per day L-Arginine [facility] 59[address]-71255 not defined Calcium Carbonate [facility] 35399-26943 not defined Simvastatin [facility] [address]-27 40 MG Orally Once a day Nov 11, 2013 1 Tablet by Oral route 1 time per day Lisinopril [facility] [address]-89 20 MG Orally Once a day Nov 07, 2013 take 1 tablet by Oral route 1 time per day Multivitamin [facility] 47883-66871 not defined Vitamin D [facility] [address]-15 not defined Celexa [facility] [address]-41 40 MG Orally Once a day Jan 18, 2015 0.5 tablet Procedures Procedure Coding System Code Date FLUARIX QUAD (3 & UP)-[facility] CPT-4 15740 Jan 18, 2015 SINGLE IMMUNIZATION ADMIN CPT-4 13005 Jan 18, 2015 Office Visit, Est Pt., Level 3 CPT-4 75519 Jan 18, 2015 Vital Signs Date/Time: Jan 18, 2015 Temperature 97.9 F Weight 243.7 lbs Height 62 in BMI 44.57 Index Blood Pressure Diastolic 72 mmHg Blood Pressure Systolic 128 mmHg Cardiac Monitoring Heart Rate 78 bpm Results No Known Results Immunizations Vaccine Administration Date FLUARIX QUAD (3 & UP)-[employer]-2014Jan 18, 2015 Summary Purpose eClinicalWorks Submission
--- OUTSIDE RECORDS SUMMARY | 2018-04-20 08:31 | XMS REPORT ---
Author Author JACQUES CHU Organization [facility] Address [address] [place] [address] Care Team Providers Care Production Assembly Supervisor Name Role Phone BARBIE CHUNETTE Unavailable PROBLEMS Type Condition ICD9-CM Code [id number] Code Onset Dates Condition Status SNOMED Code Problem Decubital ulcer L89.90 Active 980839090 Problem Essential (primary) hypertension I10 Active 31889746 Problem Edema R60.9 Active 872459482 Problem Hypothyroid E03.9 Active 63676751 Problem Depression F32.9 Active 76340103 Problem Encounter for immunization Z23 Active 383193299 Problem PVD (peripheral vascular disease) I73.9 Active 148680548 Problem Overactive bladder N32.81 Active 043157389 Problem Hypertriglyceridemia E78.1 Active 507577728 Problem Sciatica of left side M54.32 Active 93110474 Problem Irritable bowel syndrome with diarrhea K58.0 Active 271844817 Problem Pain in joint of right shoulder M25.511 Active 649095489 Problem Gastroesophageal reflux disease without esophagitis K21.9 Active 809069025 ALLERGIES No Information SOCIAL HISTORY Never Assessed PLAN OF CARE VITAL SIGNS MEDICATIONS Medication Instructions Dosage Frequency Start Date End Date Duration Status Lisinopril 20 mg Orally Once a day 1 tablet 24h Jun, 30 days Active Simvastatin 40 mg Orally Once a day 1 Tablet by Oral route 1 time per day 24h Nov, 30 days Active Colestipol HCl 1 GM Orally Once a day 2 tablets 24h Dec, 30 days Active Levothyroxine Sodium 112 mcg Orally Once a day 1 tab 24h 30 days Active Lisinopril-Hydrochlorothiazide 20-25 MG Orally Once a day 1 tablet 24h 30 days Active RESULTS No Results PROCEDURES No Known procedures IMMUNIZATIONS No Known Immunizations MEDICAL (GENERAL) HISTORY Type Description Date Medical History Hypothyroidism Medical History hypertension Surgical History cholecystectomy Surgical History tubal ligation Surgical History vein ligation Surgical History thyroidectomy, complete Hospitalization History surgeries
--- OUTSIDE RECORDS SUMMARY | 2018-04-20 08:31 | XMS REPORT ---
Author Author JACQUES CHU Organization [facility] Address [address] [place] [address] Care Team Providers Care Adjustment Clerk Name Role Phone JACQUES CHU Unavailable PROBLEMS Type Condition ICD9-CM Code [id number] Code Onset Dates Condition Status SNOMED Code Problem Cellulitis L03.90 Active 141150278 Problem Screening for diabetes mellitus Z13.1 Active 792120080 Problem PVD (peripheral vascular disease) I73.9 Active 490672143 Problem Adverse drug reaction, initial encounter T88.7XXA Active 41641916 Problem Sciatica of left side M54.32 Active 99296541 Problem Edema R60.9 Active 275873008 Problem Decubital ulcer L89.90 Active 317781915 Problem Irritable bowel syndrome with diarrhea K58.0 Active 601796910 Problem Essential (primary) hypertension I10 Active 31035446 Problem Encounter for immunization Z23 Active 401945603 Problem Hypercholesterolemia E78.0 Active 40196796 Problem Hypothyroid E03.9 Active 07096906 Problem Depression F32.9 Active 35642348 Problem Hypertension I10 Active 00362092 ALLERGIES Unknown Allergies SOCIAL HISTORY No smoking Hx information available PLAN OF CARE VITAL SIGNS MEDICATIONS Medication Instructions Dosage Frequency Start Date End Date Duration Status Hydrocodone-Acetaminophen 5-325 MG Orally 3 times a day 1 tablet as needed 8h 20 Oct, 2015 Active RESULTS No Results PROCEDURES No Known procedures IMMUNIZATIONS No Known Immunizations
--- OUTSIDE RECORDS SUMMARY | 2018-04-20 08:31 | XMS REPORT ---
Author Author JACQUES CHU [facility] eClinicalWorks Address Unknown Phone Unavailable Care Team Providers Care Music Video Producer Name Role Phone JACQUES CHU Unavailable Allergies No Known Allergies Problems Problem Type Condition Code Onset Dates Condition Status Problem Hypercholesteremia 272.0 Active Problem Depression 311 Active Problem Varicose ulcer (lower extremity) 454.0 Active Problem Hypothyroid E03.9 Active Problem Hypercholesterolemia E78.0 Active Problem HTN (hypertension) I10 Active Problem Hypothyroidism 244.9 Active Problem Essential hypertension 401.9 Active Problem Encounter for immunization Z23 Active Problem Depression F32.9 Active Problem Primary hypercoagulable state 289.81 Active Problem Venous embolism and thrombosis of unspecified deep vessels of lower extremity 453.40 Active Problem Unspecified breast screening V76.10 Active Problem Other abnormal glucose 790.29 Active Problem Screening for malignant neoplasm of the cervix V76.2 Active Problem Other malaise and fatigue 780.79 Active Medications Medication Code System Code Instructions Start Date End Date Status Dosage Celexa [facility] [address]-73 40 MG Orally Once a day Jan 26, 2015 1 tablet Results No Known Results Summary Purpose eClinicalWorks Submission
--- OUTSIDE RECORDS SUMMARY | 2018-04-20 08:31 | XMS REPORT ---
Author Author AJCQUES CHU Organization [facility] Address [address] [place] [address] Care Team Providers Care Case Planner Name Role Phone JACQUES CHU Unavailable PROBLEMS Type Condition ICD9-CM Code [id number] Code Onset Dates Condition Status SNOMED Code Problem Cellulitis L03.90 Active 058231084 Problem Screening for diabetes mellitus Z13.1 Active 260261901 Problem PVD (peripheral vascular disease) I73.9 Active 070335641 Problem Adverse drug reaction, initial encounter T88.7XXA Active 77787059 Problem Sciatica of left side M54.32 Active 56380614 Problem Edema R60.9 Active 264618382 Problem Decubital ulcer L89.90 Active 893704661 Problem Irritable bowel syndrome with diarrhea K58.0 Active 483270162 Problem Essential (primary) hypertension I10 Active 06132312 Problem Encounter for immunization Z23 Active 717342745 Problem Hypercholesterolemia E78.0 Active 36999591 Problem Hypothyroid E03.9 Active 22674425 Problem Depression F32.9 Active 63378479 Problem Hypertension I10 Active 35297713 ALLERGIES Unknown Allergies SOCIAL HISTORY No smoking Hx information available PLAN OF CARE VITAL SIGNS MEDICATIONS Medication Instructions Dosage Frequency Start Date End Date Duration Status Prozac 40 mg Orally Once a day 1 capsule in the morning 24h Mar, 30 day(s) Active RESULTS No Results PROCEDURES No Known procedures IMMUNIZATIONS No Known Immunizations
--- OUTSIDE RECORDS SUMMARY | 2018-04-20 08:32 | XMS REPORT ---
Author Author JACQUES CHU Organization [facility] [place] Address [address] [place] [address] Care Team Providers Care Metal Hanger Name Role Phone VERNA CHUE Unavailable PROBLEMS Type Condition ICD9-CM Code [id number] Code Onset Dates Condition Status SNOMED Code Problem Decubital ulcer L89.90 Active 373733020 Problem Essential (primary) hypertension I10 Active 46675860 Problem Edema R60.9 Active 105646962 Problem Hypercholesterolemia E78.0 Active 54686521 Problem Pain in joint of right shoulder M25.511 Active 822834918 Problem Sciatica of left side M54.32 Active 77080517 Problem Irritable bowel syndrome with diarrhea K58.0 Active 391275694 Problem Gastroesophageal reflux disease without esophagitis K21.9 Active 489471177 Problem Adverse drug reaction, initial encounter T88.7XXA Active 09258676 Problem Pure hypercholesterolemia E78.00 Active 533427041 Problem Hypothyroid E03.9 Active 07140465 Problem Hypertension I10 Active 28562799 Problem Cellulitis L03.90 Active 124754278 Problem Depression F32.9 Active 46319590 Problem Screening for diabetes mellitus Z13.1 Active 884637766 Problem Encounter for immunization Z23 Active 511316687 Problem PVD (peripheral vascular disease) I73.9 Active 852171485 ALLERGIES Substance Reaction Event Type Date Status Vaseline itching Drug Allergy May, Active Neosporin hives Drug Allergy May, Active Nabumetone hives/rash Drug Allergy May, Active SOCIAL HISTORY No smoking Hx information available PLAN OF CARE Activity Details Follow Up 3 Months Reason:htn, pvd , ibsd hypothyroid VITAL SIGNS Height 62 in 2016-05-08 Weight 232.8 lbs 2016-05-08 Temperature 98.5 degrees Fahrenheit 2016-05-08 Heart Rate 76 bpm 2016-05-08 Respiratory Rate 20 2016-05-08 BMI 42.58 kg/m2 2016-05-08 Blood pressure systolic 153 mmHg 2016-05-08 Blood pressure diastolic 92 mmHg 2016-05-08 MEDICATIONS Medication Instructions Dosage Frequency Start Date End Date Duration Status Ibuprofen 200 MG Orally 2 times a day 2 tablets as needed 12h Active Arthritis Pain Relief 650 MG Orally Once a day 2 tabs 24h Active Allergy Relief 180 MG Orally Once a day 1 tablet as needed 24h Active Citalopram Hydrobromide 40MG TAKE ONE-HALF TABLET BY MOUTH ONCE DAILY 60 Active Lisinopril 20 mg Orally Once a day 1 tablet 24h Jun, Active Colestipol HCl 1 GM Orally Once a day 2 tablets 24h 30 Dec, 2015 90 days Active Simvastatin 40 MG Orally Once a day 1 Tablet by Oral route 1 time per day 24h Nov, 90 days Active Multi For Her 50+ Orally Once a day 1 tablet 24h Active Citalopram Hydrobromide 40 MG Orally Once a day 1 tablet 24h Active Levothyroxine Sodium 112 MCG Orally Once a day 1 tab 24h Active Protonix 40 mg Orally Once a day 1 tablet 24h May, 30 day(s) Active Lisinopril-Hydrochlorothiazide 20-25 MG Orally Once a day 1 tablet 24h Active RESULTS Name Result Date Reference Range TSH W/ FREE T4 2016-05-08 TSH 0.435 0.450-4.500 T4,Free(Direct) 1.40 0.82-1.77 CBC 2016-05-08 WBC 8.4 3.4-10.8 RBC 4.60 3.77-5.28 Hemoglobin 13.7 11.1-15.9 Hematocrit 40.9 34.0-46.6 MCV 89 79-97 MCH 29.8 26.6-33.0 MCHC 33.5 31.5-35.7 RDW 13.4 12.3-15.4 Platelets 282 150-379 Neutrophils 61 Lymphs 30 Monocytes 7 Eos 2 Basos 0 Neutrophils (Absolute) 5.1 1.4-7.0 Lymphs (Absolute) 2.5 0.7-3.1 Monocytes(Absolute) 0.6 0.1-0.9 Eos (Absolute) 0.2 0.0-0.4 Baso (Absolute) 0.0 0.0-0.2 Immature Granulocytes 0 Immature Grans (Abs) 0.0 0.0-0.1 LIPID PANEL 2016-05-08 Cholesterol, Total 149 100-199 Triglycerides 313 0-149 HDL Cholesterol 34 >39 VLDL Cholesterol Dillon 63 5-40 LDL Cholesterol Calc 52 0-99 Comment: CMP 2016-05-08 Glucose, Serum 99 65-99 BUN 13 8-27 Creatinine, Serum 0.73 0.57-1.00 eGFR If NonAfricn Am 88 >59 eGFR If Africn Am 101 >59 BUN/Creatinine Ratio 18 11-26 Sodium, Serum 143 134-144 Potassium, Serum 4.0 3.5-5.2 Chloride, Serum 100 96-106 Carbon Dioxide, Total 24 18-29 Calcium, Serum 9.5 8.7-10.3 Protein, Total, Serum 7.2 6.0-8.5 Albumin, Serum 4.7 3.6-4.8 Globulin, Total 2.5 1.5-4.5 A/G Ratio 1.9 1.1-2.5 Bilirubin, Total 0.7 0.0-1.2 Alkaline Phosphatase, S 86 39-117 AST (SGOT) 21 0-40 ALT (SGPT) 22 0-32 PROCEDURES Procedure Date Ordered Related Diagnosis Body Site [facility] May 08, 2016 Office Visit, Est Pt., Level 4 May 08, 2016 VENIPUNCT, ROUTINE* May 08, 2016 IMMUNIZATIONS No Known Immunizations
--- OUTSIDE RECORDS SUMMARY | 2018-04-20 08:33 | XMS REPORT ---
Author Author JACQUES CHU [facility] eClinicalWorks Address Unknown Phone Unavailable Care Team Providers Care Home Paraprofessional Name Role Phone JACQUES CHU CP Unavailable Allergies No Known Allergies Problems [...]
--- OUTSIDE RECORDS SUMMARY | 2018-04-20 08:43 | XMS REPORT ---
Author Author JACQUES CHU [facility] eClinicalWorks Address Unknown Phone Unavailable Care Team Providers Care Sulfur Burner Name Role Phone JACQUES CHU CP Unavailable [...] Z23 Active Problem Hypercholesterolemia E78.0 Active Medications Medication Code System Code Instructions Start Date End Date Status Dosage Nabumetone [facility] [address]-89 500 MG Orally Twice a day Nov 19, 2015 Dec 19, 2015 1 tablet Results No Known Results Summary Purpose eClinicalWorks Submission
--- OUTSIDE RECORDS SUMMARY | 2018-04-20 08:47 | XMS REPORT ---
Author JACQUES Fernandez [facility] eClinicalWorks Address Unknown Phone Unavailable Care Team Providers Care Molten Iron Pourer Name Role Phone JACQUES CHU CP Unavailable Allergies, Adverse Reactions, Alerts Substance Reaction Event Type Vaseline itching Drug Allergy Neosporin hives Drug Allergy Nabumetone hives/rash Drug Allergy Problems Problem Type Condition Code Onset Dates Condition Status Problem Hypertension I10 Active Problem PVD (peripheral vascular disease) I73.9 Active Problem Cellulitis L03.90 Active Problem Sciatica of left side M54.32 Active Assessment Edema R60.9 Active Problem Irritable bowel syndrome with diarrhea K58.0 Active Assessment Sciatica of left side M54.32 Active Assessment Irritable bowel syndrome with diarrhea K58.0 Active Problem Adverse drug reaction, initial encounter T88.7XXA Active Problem Decubital ulcer L89.90 Active Problem Screening for diabetes mellitus Z13.1 Active Problem Essential (primary) hypertension I10 Active Problem Edema R60.9 Active Assessment PVD (peripheral vascular disease) I73.9 Active Assessment Hypercholesterolemia E78.0 Active Assessment Essential (primary) hypertension I10 Active Assessment Hypertension I10 Active Problem Depression F32.9 Active Problem Encounter for immunization Z23 Active Assessment Depression F32.9 Active Problem Hypercholesterolemia E78.0 Active Assessment Encounter for immunization Z23 Active Assessment Hypothyroid E03.9 Active Problem Hypothyroid E03.9 Active Medications Medication Code System Code Instructions Start Date End Date Status Dosage Lisinopril [facility] [address]-74 20 MG Orally Once a day June 12, 2015 1 tablet Simvastatin [facility] [address]-72 40 MG Orally Once a day Nov 11, 2013 1 Tablet by Oral route 1 time per day Citalopram Hydrobromide [facility] [address]-63 40MG TAKE ONE-HALF TABLET BY MOUTH ONCE DAILY Multi For Her 50+ [facility] [address] Orally Once a day 1 tablet Citalopram Hydrobromide [facility] [address]-77 40 MG Orally Once a day 1 tablet Arthritis Pain Relief [facility] [address]-82 650 MG Orally Once a day 2 tabs Allergy Relief [facility] [address] 180 MG Orally Once a day 1 tablet as needed Colestipol HCl [facility] [address]-63 1 GM Orally Once a day Jan 04, 2016 2 tablets Ibuprofen [facility] [address]-87 200 MG Orally 2 times a day 2 tablets as needed Levothyroxine Sodium [facility] [address]-78 112 MCG Orally Once a day 1 tab Hydrocodone-Acetaminophen [facility] [address]-19 5-325 MG Orally 3 times a day October 24, 2015 1 tablet as needed Lisinopril-Hydrochlorothiazide [facility] [address]-55 20-25 MG Orally Once a day 1 tablet Procedures Procedure Coding System Code Date SINGLE IMMUNIZATION ADMIN CPT-4 54861 Jan 04, 2016 Office Visit, Est Pt., Level 4 CPT-4 24471 Jan 04, 2016 FLUARIX QUAD P-FREE 3 AND UP .50 2015 CPT-4 79177 Jan 04, 2016 Vital Signs Date/Time: Jan 04, 2016 Cardiac Monitoring Heart Rate 80 bpm Weight 222 lbs Height 62 in BMI 40.60 Index Blood Pressure Diastolic 70 mmHg Blood Pressure Systolic 100 mmHg Results No Known Results Immunizations Vaccine Administration Date FLUARIX QUAD P-FREE 3 AND UP .50 2015Jan 04, 2016 Summary Purpose eClinicalWorks Submission
--- OUTSIDE RECORDS SUMMARY | 2018-04-20 08:47 | XMS REPORT ---
Author Author LUCIANO MATTSON eClinicalWorks Address Unknown Phone Unavailable Care Team Providers Care Boat Engines Installer Name Role Phone LUCIANO MATTSON CP Unavailable Allergies, Adverse Reactions, Alerts Substance Reaction Event Type N.K.D.A. Info Not Available Non Drug Allergy Problems Problem Type Condition Code Onset Dates Condition Status Problem Screening for malignant neoplasm of the cervix V76.2 Active Problem Venous embolism and thrombosis of unspecified deep vessels of lower extremity 453.40 Active Problem Primary hypercoagulable state 289.81 Active Assessment Dental examination Z01.20 Active Problem Unspecified breast screening V76.10 Active Problem Essential hypertension 401.9 Active Problem Depression 311 Active Problem Hypothyroidism 244.9 Active Problem Other malaise and fatigue 780.79 Active Problem Other abnormal glucose 790.29 Active Problem Varicose ulcer (lower extremity) 454.0 Active Problem Hypercholesteremia 272.0 Active Medications Medication Code System Code Instructions Start Date End Date Status Dosage Celexa [facility] [address]-01 20 MG Orally Once a day Nov 07, 2013 1 tablet by Oral route 1 time per day Simvastatin [facility] [address]-92 40 MG Orally Once a day Nov 11, 2013 1 Tablet by Oral route 1 time per day Vitamin D [facility] [address]-45 not defined L-Arginine [facility] [address] not defined Citalopram Hydrobromide [facility] [address]-37 not defined Lisinopril-Hydrochlorothiazide [facility] [address]-39 20-25 MG Orally Once a day Nov 07, 2013 take 1 tablet by Oral route 1 time per day Take in AM Lisinopril [facility] [address]-52 20 MG Orally Once a day Nov 07, 2013 take 1 tablet by Oral route 1 time per day Multivitamin [facility] [address] not defined Calcium Carbonate [facility] [address] not defined Levothyroxine Sodium [facility] [address]-38 not defined Synthroid [facility] [address]-17 112 MCG Orally Once a day Nov 07, 2013 1 tablet by Oral route 1 time per day Procedures Procedure Coding System Code Date INTRAORL-PERIAPICAL 1 FILM 55343 CPT-4 D0220 Jan 04, 2015 BITEWING - SINGLE FILM CPT-4 D0270 Jan 04, 2015 LTD ORAL EVALUATION - PROBLEM FOCUS CPT-4 D0140 Jan 04, 2015 Vital Signs Date/Time: Jan 04, 2015 Blood Pressure Diastolic 72 mmHg Blood Pressure Systolic 142 mmHg Results No Known Results Summary Purpose eClinicalWorks Submission
--- OUTSIDE RECORDS SUMMARY | 2018-04-20 08:48 | XMS REPORT ---
Author JACQUES Fernandez [facility] eClinicalWorks Address Unknown Phone Unavailable Care Team Providers Care Retail Store Clerk Name Role Phone JACQUES CHU CP Unavailable Allergies, Adverse Reactions, Alerts Substance Reaction Event Type Vaseline itching Drug Allergy Neosporin hives Drug Allergy Problems Problem Type Condition Code [...] R60.9 Active Problem Decubital ulcer L89.90 Active Assessment Sciatica of left side M54.32 Active Problem Depression F32.9 Active Problem Encounter for immunization Z23 Active Assessment Irritable bowel syndrome with diarrhea K58.0 Active Problem Hypercholesterolemia E78.0 Active Medications Medication Code System Code Instructions Start Date End Date Status Dosage Ibuprofen [facility] [address]-69 200 MG Orally 2 times a day 2 tablets as needed Allergy Relief [facility] [address]7650 180 MG Orally Once a day 1 tablet as needed Levothyroxine Sodium [facility] [address]-42 112 MCG Orally Once a day 1 tab Lisinopril [facility] [address]-24 20 MG Orally Once a day June 12, 2015 1 tablet Arthritis Pain Relief [facility] [address]-07 650 MG Orally Once a day 2 tabs Hydrocodone-Acetaminophen [facility] [address]-32 5-325 MG Orally every 6 hrs October 24, 2015 1 tablet as needed Citalopram Hydrobromide [facility] [address]-45 40 MG Orally Once a day 1 tablet Multi For Her 50+ [facility] [address] Orally Once a day 1 tablet Lisinopril-Hydrochlorothiazide [facility] [address]-01 20-25 MG Orally Once a day 1 tablet Simvastatin [facility] [address]-23 40 MG Orally Once a day Nov 11, 2013 1 Tablet by Oral route 1 time per day Procedures Procedure Coding System Code Date THER/PROPH/DIAG INJ, SC/IM CPT-4 67542 October 24, 2015 DEXAMETHASONE 20MG/5 ML (PER 1 MG) CPT-4 J1100 October 24, 2015 DEPO MEDROL 40 MG/ML CPT-4 J1030 October 24, 2015 Office Visit, Est Pt., Level 4 CPT-4 74301 October 24, 2015 Vital Signs Date/Time: October 24, 2015 Cardiac Monitoring Heart Rate 70 bpm Weight 228.3 lbs Height 62 in Blood Pressure Diastolic 80 mmHg Blood Pressure Systolic 140 mmHg Results No Known Results Summary Purpose eClinicalWorks Submission
--- OUTSIDE RECORDS SUMMARY | 2018-04-20 08:50 | XMS REPORT ---
Author Author JACQUES CHU [facility] eClinicalWorks Address Unknown Phone Unavailable Care Team Providers Care Carpet Layer Name Role Phone JACQUES CHU CP Unavailable Allergies No Known Allergies Problems Problem Type Condition Code Onset Dates Condition Status Problem Hypertension I10 Active Problem PVD (peripheral vascular disease) I73.9 Active Problem Cellulitis L03.90 Active Problem Sciatica of left side M54.32 Active Problem Irritable bowel syndrome with diarrhea K58.0 Active Problem Adverse drug reaction, initial encounter T88.7XXA Active Problem Decubital ulcer L89.90 Active Problem Screening for diabetes mellitus Z13.1 Active Problem Essential (primary) hypertension I10 Active Problem Edema R60.9 Active Problem Depression F32.9 Active Problem Encounter for immunization Z23 Active Problem Hypercholesterolemia E78.0 Active Problem Hypothyroid E03.9 Active Medications Medication Code System Code Instructions Start Date End Date Status Dosage Hydrocodone-Acetaminophen [facility] [address]-17 5-325 MG Orally 3 times a day October 24, 2015 Mar 03, 2016 1 tablet as needed Results No Known Results Summary Purpose eClinicalWorks Submission
--- OUTSIDE RECORDS SUMMARY | 2018-04-20 08:54 | XMS REPORT ---
Author Author JACQUES CHU [facility] eClinicalWorks Address Unknown Phone Unavailable Care Team Providers Care Station Detective Name Role Phone JACQUES CHU CP Unavailable [...] Instructions Start Date End Date Status Dosage Vistaril [facility] [address]-05 25 MG Orally every 8 hrs Dec 06, 2015 1 capsule as needed Results No Known Results Summary Purpose eClinicalWorks Submission
--- OUTSIDE RECORDS SUMMARY | 2018-04-20 08:59 | XMS REPORT | Continuity of Care Document ---
Author Author Formerly [facility], Later [facility] Address Unknown Phone Unavailable Allergies Active Description Code Type Severity Reaction Onset Reported/Identified Relationship to Patient Clinical Status Yes nabumetone [id number] Drug Allergy Severe N/A 04/20/2018 Yes bacitracin [id number] Drug Allergy Unknown N/A 04/20/2018 Yes Bacitracin Zinc [id number] Drug Allergy Unknown N/A 04/20/2018 Yes gramicidin D [id number] Drug Allergy Unknown N/A 04/20/2018 Yes neomycin sulfate [id number] Drug Allergy Unknown N/A 04/20/2018 Yes polymyxin B [id number] Drug Allergy Unknown N/A 04/20/2018 Yes polymyxin B sulfate [id number] Drug Allergy Unknown N/A 04/20/2018 Medications There is no data. Problems Date Dx Coded Attending Type Code Diagnosis Diagnosed By 03/05/1199 ROCIO MON MD, Ot E66.09 OTHER OBESITY DUE TO EXCESS CALORIES 03/05/1199 ROCIO MON MD Ot I87.312 CHRONIC VENOUS HYPERTENSION W ULCER OF L 03/05/1199 ROCIO MON MD, Ot L97.322 NON-PRESSURE CHRONIC ULCER OF LEFT ANKLE 03/05/1199 ROCIO MON MD, Ot Z68.41 BODY MASS INDEX (BMI) 40.0-44.9, ADULT 10/25/2007 HARITHA CHAMPION DO 296.30 MAJOR DEPRESSIVE AFFECTIVE DISORDER RECURRENT EPISODE UNSPECIFIED DEGREE 10/25/2007 HARITHA CHAMPION DO 296.30 MAJOR DEPRESSIVE AFFECTIVE DISORDER RECURRENT EPISODE UNSPECIFIED DEGREE 10/25/2007 HARITHA CHAMPION DO 296.30 MAJOR DEPRESSIVE AFFECTIVE DISORDER RECURRENT EPISODE UNSPECIFIED DEGREE 10/25/2007 HARITHA CHAMPION DO 296.30 MAJOR DEPRESSIVE AFFECTIVE DISORDER RECURRENT EPISODE UNSPECIFIED DEGREE 10/25/2007 HARITHA CHAMPION DO 296.30 MAJOR DEPRESSIVE AFFECTIVE DISORDER RECURRENT EPISODE UNSPECIFIED DEGREE 10/25/2007 HARITHA CHAMPION DO 296.30 MAJOR DEPRESSIVE AFFECTIVE DISORDER RECURRENT EPISODE UNSPECIFIED DEGREE 10/25/2007 CHAMPION DO, HARITHA K 296.30 MAJOR DEPRESSIVE AFFECTIVE DISORDER RECURRENT EPISODE UNSPECIFIED DEGREE 10/25/2007 CHAMPION DO, HARITHA K 296.30 MAJOR DEPRESSIVE AFFECTIVE DISORDER RECURRENT EPISODE UNSPECIFIED DEGREE 11/12/2007 CHAMPION DO, HARITHA K 296.32 MAJOR DEPRESSIVE AFFECTIVE DISORDER RECURRENT EPISODE MODERATE DEGREE 11/12/2007 CHAMPION DO, HARITHA K 296.32 MAJOR DEPRESSIVE AFFECTIVE DISORDER RECURRENT EPISODE MODERATE DEGREE 11/12/2007 CHAMPION DO, HARITHA K 296.32 MAJOR DEPRESSIVE AFFECTIVE DISORDER RECURRENT EPISODE MODERATE DEGREE 11/12/2007 CHAMPION DO, HARITHA K 296.32 MAJOR DEPRESSIVE AFFECTIVE DISORDER RECURRENT EPISODE MODERATE DEGREE 11/12/2007 CHAMPION DO, HARITHA K 296.32 MAJOR DEPRESSIVE AFFECTIVE DISORDER RECURRENT EPISODE MODERATE DEGREE 11/12/2007 CHAMPION DO, HARITHA K 296.32 MAJOR DEPRESSIVE AFFECTIVE DISORDER RECURRENT EPISODE MODERATE DEGREE 11/12/2007 CHAMPION DO, HARITHA K 296.32 MAJOR DEPRESSIVE AFFECTIVE DISORDER RECURRENT EPISODE MODERATE DEGREE 11/12/2007 CHAMPION DO, HARITHA K 296.32 MAJOR DEPRESSIVE AFFECTIVE DISORDER RECURRENT EPISODE MODERATE DEGREE 07/16/2009 CHAMPION DO, HARITHA K 715.00 OSTEOARTHRITIS GENERALIZED 07/16/2009 CHAMPION DO, HARITHA K 720.2 SACROILIITIS, NOT ELSEWHERE CLASSIFIED 07/16/2009 CHAMPION DO, HARITHA K 724.2 LUMBAGO 07/16/2009 CHAMPION DO, HARITHA K 780.99 loss of pleasure from usual activities (anhedonia) 07/16/2009 CHAMPION DO, HARITHA K 788.30 URINARY INCONTINENCE, UNSPECIFIED 07/16/2009 CHAMPION DO, HARITHA K 715.00 OSTEOARTHRITIS GENERALIZED 07/16/2009 CHAMPION DO, HARITHA K 720.2 SACROILIITIS, NOT ELSEWHERE CLASSIFIED 07/16/2009 CHAMPION DO, HARITHA K 724.2 LUMBAGO 07/16/2009 CHAMPION DO, HARITHA K 780.99 loss of pleasure from usual activities (anhedonia) 07/16/2009 CHAMPION DO, HARITHA K 788.30 URINARY INCONTINENCE, UNSPECIFIED 07/16/2009 CHAMPION DO, HARITHA K 715.00 OSTEOARTHRITIS GENERALIZED 07/16/2009 CHAMPION DO, HARITHA K 720.2 SACROILIITIS, NOT ELSEWHERE CLASSIFIED 07/16/2009 CHAMPION DO, HARITHA K 724.2 LUMBAGO 07/16/2009 CHAMPION DO, HARITHA K 780.99 loss of pleasure from usual activities (anhedonia) 07/16/2009 CHAMPION DO, HARITHA K 788.30 URINARY INCONTINENCE, UNSPECIFIED 07/16/2009 CHAMPION DO, HARITHA K 715.00 OSTEOARTHRITIS GENERALIZED 07/16/2009 CHAMPION DO, HARITHA K 720.2 SACROILIITIS, NOT ELSEWHERE CLASSIFIED 07/16/2009 CHAMPION DO, HARITHA K 724.2 LUMBAGO 07/16/2009 CHAMPION DO, HARITHA K 780.99 loss of pleasure from usual activities (anhedonia) 07/16/2009 CHAMPION DO, HARITHA K 788.30 URINARY INCONTINENCE, UNSPECIFIED 07/16/2009 CHAMPION DO, HARITHA K 715.00 OSTEOARTHRITIS GENERALIZED 07/16/2009 CHAMPION DO, HARITHA K 720.2 SACROILIITIS, NOT ELSEWHERE CLASSIFIED 07/16/2009 CHAMPION DO, HARITHA K 724.2 LUMBAGO 07/16/2009 CHAMPION DO, HARITHA K 780.99 loss of pleasure from usual activities (anhedonia) 07/16/2009 CHAMPION DO, HARITHA K 788.30 URINARY INCONTINENCE, UNSPECIFIED 07/16/2009 CHAMPION DO, HARITHA K 715.00 OSTEOARTHRITIS GENERALIZED 07/16/2009 CHAMPION DO, HARITHA K 720.2 SACROILIITIS, NOT ELSEWHERE CLASSIFIED 07/16/2009 CHAMPION DO, HARITHA K 724.2 LUMBAGO 07/16/2009 CHAMPION DO, HARITHA K 780.99 loss of pleasure from usual activities (anhedonia) 07/16/2009 CHAMPION DO, HARITHA K 788.30 URINARY INCONTINENCE, UNSPECIFIED 07/16/2009 CHAMPION DO, HARITHA K 715.00 OSTEOARTHRITIS GENERALIZED 07/16/2009 CHAMPION DO, HARITHA K 720.2 SACROILIITIS, NOT ELSEWHERE CLASSIFIED 07/16/2009 CHAMPION DO, HARITHA K 724.2 LUMBAGO 07/16/2009 CHAMPION DO, HARITHA K 780.99 loss of pleasure from usual activities (anhedonia) 07/16/2009 CHAMPION DO, HARITHA K 788.30 URINARY INCONTINENCE, UNSPECIFIED 07/16/2009 CHAMPION DO, HARITHA K 715.00 OSTEOARTHRITIS GENERALIZED 07/16/2009 CHAMPION DO, HARITHA K 720.2 SACROILIITIS, NOT ELSEWHERE CLASSIFIED 07/16/2009 CHAMPION DO, HARITHA K 724.2 LUMBAGO 07/16/2009 CHAMPION DO, HARITHA K 780.99 loss of pleasure from usual activities (anhedonia) 07/16/2009 CHAMPION DO, HARITHA K 788.30 URINARY INCONTINENCE, UNSPECIFIED 08/27/2009 CHAMPION DO, HARITHA K 240.9 GOITER (DIFFUSE NONTOXIC) 08/27/2009 CHAMPION DO, HARITHA K 240.9 GOITER (DIFFUSE NONTOXIC) 08/27/2009 CHAMPION DO, HARITHA K 240.9 GOITER (DIFFUSE NONTOXIC) 08/27/2009 CHAMPION DO, HARITHA K 240.9 GOITER (DIFFUSE NONTOXIC) 08/27/2009 CHAMPION DO, HARITHA K 240.9 GOITER (DIFFUSE NONTOXIC) 08/27/2009 CHAMPION DO, HARITHA K 240.9 GOITER (DIFFUSE NONTOXIC) 08/27/2009 CHAMPION DO, HARITHA K 240.9 GOITER (DIFFUSE NONTOXIC) 08/27/2009 CHAMPION DO, HARITHA K 240.9 GOITER (DIFFUSE NONTOXIC) 06/12/2010 CHAMPION DO, HARITHA K 272.4 HYPERLIPIDEMIA 06/12/2010 CHAMPION DO, HARITHA K 401.1 ESSENTIAL HYPERTENSION BENIGN 06/12/2010 CHAMPION DO, HARITHA K 272.4 HYPERLIPIDEMIA 06/12/2010 CHAMPION DO, HARITHA K 401.1 ESSENTIAL HYPERTENSION BENIGN 06/12/2010 CHAMPION DO, HARITHA K 272.4 HYPERLIPIDEMIA 06/12/2010 CHAMPION DO, HARITHA K 401.1 ESSENTIAL HYPERTENSION BENIGN 06/12/2010 CHAMPION DO, HARITHA K 272.4 HYPERLIPIDEMIA 06/12/2010 CHAMPION DO, HARITHA K 401.1 ESSENTIAL HYPERTENSION BENIGN 06/12/2010 CHAMPION DO, HARITHA K 272.4 HYPERLIPIDEMIA 06/12/2010 CHAMPION DO, HARITHA K 401.1 ESSENTIAL HYPERTENSION BENIGN 06/12/2010 CHAMPION DO, HARITHA K 272.4 HYPERLIPIDEMIA 06/12/2010 CHAMPION DO, HARITHA K 401.1 ESSENTIAL HYPERTENSION BENIGN 06/12/2010 CHAMPION DO, HARITHA K 272.4 HYPERLIPIDEMIA 06/12/2010 CHAMPION DO, HARITHA K 401.1 ESSENTIAL HYPERTENSION BENIGN 06/12/2010 CHAMPION DO, HARITHA K 272.4 HYPERLIPIDEMIA 06/12/2010 CHAMPION DO, HARITHA K 401.1 ESSENTIAL HYPERTENSION BENIGN 06/24/2010 CHAMPION DO, HARITHA K 241.0 NONTOXIC AUTONOMOUS THYROID NODULE 06/24/2010 CHAMPION DO, HARITHA K 787.20 DYSPHAGIA, UNSPECIFIED 06/24/2010 CHAMPION DO, HARITHA K 241.0 NONTOXIC AUTONOMOUS THYROID NODULE 06/24/2010 CHAMPION DO, HARITHA K 787.20 DYSPHAGIA, UNSPECIFIED 06/24/2010 CHAMPION DO, HARITHA K 241.0 NONTOXIC AUTONOMOUS THYROID NODULE 06/24/2010 CHAMPION DO, HARITHA K 787.20 DYSPHAGIA, UNSPECIFIED 06/24/2010 CHAMPION DO, HARITHA K 241.0 NONTOXIC AUTONOMOUS THYROID NODULE 06/24/2010 CHAMPION DO, HARITHA K 787.20 DYSPHAGIA, UNSPECIFIED 06/24/2010 CHAMPION DO, HARITHA K 241.0 NONTOXIC AUTONOMOUS THYROID NODULE 06/24/2010 CHAMPION DO, HARITHA K 787.20 DYSPHAGIA, UNSPECIFIED 06/24/2010 CHAMPION DO, HARITHA K 241.0 NONTOXIC AUTONOMOUS THYROID NODULE 06/24/2010 CHAMPION DO, HARITHA K 787.20 DYSPHAGIA, UNSPECIFIED 06/24/2010 CHAMPION DO, HARITHA K 241.0 NONTOXIC AUTONOMOUS THYROID NODULE 06/24/2010 CHAMPION DO, HARITHA K 787.20 DYSPHAGIA, UNSPECIFIED 06/24/2010 CHAMPION DO, HARITHA K 241.0 NONTOXIC AUTONOMOUS THYROID NODULE 06/24/2010 CHAMPION DO, HARITHA K 787.20 DYSPHAGIA, UNSPECIFIED 07/22/2010 CHAMPION DO, HARITHA K 246.2 CYST OF THYROID 07/22/2010 CHAMPION DO, HARITHA K V76.51 SPECIAL SCREENING FOR MALIGNANT NEOPLASMS COLON 07/22/2010 CHAMPION DO, HARITHA K 246.2 CYST OF THYROID 07/22/2010 CHAMPION DO, HARITHA K V76.51 SPECIAL SCREENING FOR MALIGNANT NEOPLASMS COLON 07/22/2010 CHAMPION DO, HARITHA K 246.2 CYST OF THYROID 07/22/2010 CHAMPION DO, HARITHA K V76.51 SPECIAL SCREENING FOR MALIGNANT NEOPLASMS COLON 07/22/2010 CHAMPION DO, HARITHA K 246.2 CYST OF THYROID 07/22/2010 CHAMPION DO, HARITHA K V76.51 SPECIAL SCREENING FOR MALIGNANT NEOPLASMS COLON 07/22/2010 CHAMPION DO, HARITHA K 246.2 CYST OF THYROID 07/22/2010 CHAMPION DO, HARITHA K V76.51 Special Screening For Malignant Neoplasms Colon 07/22/2010 CHAMPION DO, HARITHA K 246.2 CYST OF THYROID 07/22/2010 CHAMPION DO, HARITHA K V76.51 Special Screening For Malignant Neoplasms Colon 07/22/2010 CHAMPION DO, HARITHA K 246.2 CYST OF THYROID 07/22/2010 CHAMPION DO, HARITHA K V76.51 Special Screening For Malignant Neoplasms Colon 07/22/2010 CHAMPION DO, HARITHA K 246.2 CYST OF THYROID 07/22/2010 CHAMPION DO, HARITHA K V76.51 Special Screening For Malignant Neoplasms Colon 08/16/2010 Ot 226 08/16/2010 Ot 246.3 08/16/2010 Ot V76.51 08/26/2010 CHAMPION DO, HARITHA K 244.0 HYPOTHYROIDISM POSTSURGICAL 08/26/2010 CHAMPION DO, HARITHA K 244.0 HYPOTHYROIDISM POSTSURGICAL 08/26/2010 CHAMPION DO, HARITHA K 244.0 HYPOTHYROIDISM POSTSURGICAL 08/26/2010 CHAMPION DO, HARITHA K 244.0 HYPOTHYROIDISM POSTSURGICAL 08/26/2010 CHAMPION DO, HARITHA K 244.0 HYPOTHYROIDISM POSTSURGICAL 08/26/2010 CHAMPION DO, HARITHA K 244.0 HYPOTHYROIDISM POSTSURGICAL 08/26/2010 CHAMPION DO, HARITHA K 244.0 HYPOTHYROIDISM POSTSURGICAL 08/26/2010 CHAMPION DO, HARITHA K 244.0 HYPOTHYROIDISM POSTSURGICAL 01/10/2012 CHAMPION DO, HARITHA K 453.40 DVT - LOWER EXTREMITY 01/10/2012 CHAMPION DO, HARITHA K 453.40 DVT - LOWER EXTREMITY 01/10/2012 CHAMPION DO, HARITHA K 453.40 DVT - LOWER EXTREMITY 01/10/2012 CHAMPION DO, HARITHA K 453.40 DVT - LOWER EXTREMITY 01/10/2012 CHAMPION DO, HARITHA K 453.40 DVT - LOWER EXTREMITY 01/10/2012 CHAMPION DO, HARITHA K 453.40 DVT - LOWER EXTREMITY 01/10/2012 CAHMPION DO, HARITHA K 453.40 DVT - LOWER EXTREMITY 01/10/2012 CHAMPION DO, HARITHA K 453.40 DVT - LOWER EXTREMITY 02/04/2012 CHAMPION DO, HARITHA K V76.10 BREAST CANCER SCREENING 02/04/2012 CHAMPION DO, HARITHA K V76.2 CERVICAL CANCER SCREENING (PAP SMEAR) 02/04/2012 CHAMPION DO, HARITHA K V76.10 BREAST CANCER SCREENING 02/04/2012 CHAMPION DO, HARITHA K V76.2 CERVICAL CANCER SCREENING (PAP SMEAR) 02/04/2012 CHAMPION DO, HARITHA K V76.10 BREAST CANCER SCREENING 02/04/2012 CHAMPION DO, HARITHA K V76.2 CERVICAL CANCER SCREENING (PAP SMEAR) 02/04/2012 CHAMPION DO, HARITHA K V76.10 BREAST CANCER SCREENING 02/04/2012 HARITHA CHAMPION DO V76.2 CERVICAL CANCER SCREENING (PAP SMEAR) 02/04/2012 HARITHA CHAMPION DO V76.10 Breast Cancer Screening 02/04/2012 HARITHA CHAMPION DO V76.2 Cervical Cancer Screening (pap Smear) 02/04/2012 HARITHA CHAMPION DO V76.10 Breast Cancer Screening 02/04/2012 HARITHA CHAMPION DO V76.2 Cervical Cancer Screening (pap Smear) 02/04/2012 HARITHA CHAMPION DO V76.10 Breast Cancer Screening 02/04/2012 HARITHA CHAMPION DO V76.2 Cervical Cancer Screening (pap Smear) 02/04/2012 HARITHA CHAMPION DO V76.10 Breast Cancer Screening 02/04/2012 HARITHA CHAMPION DO V76.2 Cervical Cancer Screening (pap Smear) 07/16/2012 HARITHA CHAMPION DO 289.81 HYPERCOAGULABLE STATE (PRIMARY) 07/16/2012 HARITHA CHAMPION DO 289.81 HYPERCOAGULABLE STATE (PRIMARY) 07/16/2012 HARITHA CHAMPION DO 289.81 HYPERCOAGULABLE STATE (PRIMARY) 11/08/2012 GLORIA DE LEON, ARLENE Diamond Ot 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 11/07/2013 HARITHA CHAMPION DO 780.79 FATIGUE 11/07/2013 HARITHA CHAMPION DO 790.29 PREDIABETES 11/07/2013 HARITHA CHAMPION DO 780.79 FATIGUE 11/07/2013 HARITHA CHAMPION DO 790.29 PREDIABETES 05/31/2015 Ot 240.9 05/31/2015 Ot 240.9 05/31/2015 Ot 240.9 05/31/2015 Ot V72.63 05/31/2015 Ot V72.81 05/31/2015 Ot V74.8 05/31/2015 Ot 286.3 05/31/2015 HARITHA CHAMPION DO Ot V76.12 05/31/2015 Ot 240.9 05/31/2015 Ot 240.9 05/31/2015 Ot 240.9 05/31/2015 Ot V72.63 05/31/2015 Ot V72.81 05/31/2015 Ot V74.8 05/31/2015 Ot 286.3 05/31/2015 HARITHA CHAMPION DO Ot V76.12 06/18/2015 Ot 240.9 06/18/2015 Ot 240.9 06/18/2015 Ot 240.9 06/18/2015 Ot V72.63 06/18/2015 Ot V72.81 06/18/2015 Ot V74.8 06/18/2015 Ot 286.3 06/18/2015 HARITHA CHAMPION DO Ot V76.12 06/18/2015 ROCIO MON MD, Ot E66.09 06/18/2015 ROCIO MON MD, Ot I87.312 06/18/2015 ROCIO MON MD, Ot L97.322 06/18/2015 ROCIO MON MD, Ot Z68.41 07/09/2015 ROCIO MON MD, Ot E66.09 OTHER OBESITY DUE TO EXCESS CALORIES 07/09/2015 ROCIO MON MD Ot I87.312 CHRONIC VENOUS HYPERTENSION W ULCER OF L 07/09/2015 ROCIO MON MD, Ot L97.322 NON-PRESSURE CHRONIC ULCER OF LEFT ANKLE 07/09/2015 ROCIO MON MD Ot Z68.41 BODY MASS INDEX (BMI) 40.0-44.9, ADULT 08/12/2016 Ot 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 08/12/2016 AKIRA JORDAN HARITHA Lobo Ot V76.12 OTH SCREEN MAMMO-MALIGN NEOPLASM OF GERTRUDE 08/12/2016 ROCIO MON MD Ot E66.09 OTHER OBESITY DUE TO EXCESS CALORIES 08/12/2016 ROCIO MON MD Ot I87.312 CHRONIC VENOUS HYPERTENSION W ULCER OF L 08/12/2016 ROCIO MON MD, Ot L97.322 NON-PRESSURE CHRONIC ULCER OF LEFT ANKLE 04/20/2018 Ot 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 04/20/2018 AKIRA JORDAN HARITHA Lobo Ot V76.12 OTH SCREEN MAMMO-MALIGN NEOPLASM OF GERTRUDE 04/20/2018 ROCIO MON MD, Ot E66.09 OTHER OBESITY DUE TO EXCESS CALORIES 04/20/2018 ROCIO MON MD Ot I87.312 CHRONIC VENOUS HYPERTENSION W ULCER OF L 04/20/2018 ROCIO MON MD, Ot L97.322 NON-PRESSURE CHRONIC ULCER OF LEFT ANKLE 04/20/2018 Ot 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 Procedures Code Description [place] [address] ROUTINE VENIPUNCTURE 02/04/2012 53819 INR (IN HOUSE) 02/04/2012 42206 HEMOCCULT 02/04/2012 82885 VITAMIN D 25-HYDROXY (D2,D3 , TOTAL) 02/05/2012 97629 MAMMOGRAM, SCREENING 02/09/2012 Q0091 PAP SMEAR OBTAIN SMEAR 02/09/2012 65361 INR (IN HOUSE) 02/09/2012 19072 PAP SMEAR 02/10/2012 [id number] GYNECOLOGIC ADDENDUM REPORT (RESULT ONLY) 02/12/2012 65235 INR (IN HOUSE) 02/16/2012 59581 INR (IN HOUSE) 02/24/2012 50983 INR (IN HOUSE) 03/11/2012 00274 INR (IN HOUSE) 03/23/2012 82759 INR (IN HOUSE) 04/28/2012 36248 INR (IN HOUSE) 06/02/2012 89938 ROUTINE VENIPUNCTURE 06/30/2012 70371 PROTEIN-S FUNCTION 07/01/2012 26685 ANTITHROMBIN III TEST 07/01/2012 30888 PROTEIN-C FUNCTION 07/01/2012 26286 FACTOR 5 07/12/2012 LUPUS LUPUS ANTICOAGULANT ANALYZER 07/12/2012 MEDIC VIA [facility], 07/19/2012 22798 ROUTINE VENIPUNCTURE 11/07/2013 52484 MAMMOGRAM, SCREENING 11/07/2013 53618 CBC 11/07/2013 2999919 GFR CALC (RESULT ONLY) 11/07/2013 00528 CMP 11/07/2013 97584 LIPID PANEL 11/07/2013 17725 TSH 11/07/2013 51278 A1C (RML) 11/08/2013 Results Test Result Range TSH+Free T4 - 05/08/16 10:34 TSH 0.435 uIU/mL 0.450-4.500 T4,Free(Direct) 1.40 ng/dL 0.82-1.77 CBC With Differential/Platelet - 05/08/16 10:34 WBC 8.4 x10E3/uL 3.4-10.8 RBC 4.60 x10E6/uL 3.77-5.28 Hemoglobin 13.7 g/dL 11.1-15.9 Hematocrit 40.9 % 34.0-46.6 MCV 89 fL 79-97 MCH 29.8 pg 26.6-33.0 MCHC 33.5 g/dL 31.5-35.7 RDW 13.4 % 12.3-15.4 Platelets 282 x10E3/uL 150-379 Neutrophils 61 % Lymphs 30 % Monocytes 7 % Eos 2 % Basos 0 % Neutrophils (Absolute) 5.1 x10E3/uL 1.4-7.0 Lymphs (Absolute) 2.5 x10E3/uL 0.7-3.1 Monocytes(Absolute) 0.6 x10E3/uL 0.1-0.9 Eos (Absolute) 0.2 x10E3/uL 0.0-0.4 Baso (Absolute) 0.0 x10E3/uL 0.0-0.2 Immature Granulocytes 0 % Immature Grans (Abs) 0.0 x10E3/uL 0.0-0.1 Comp. Metabolic Panel (14) - 05/08/16 10:34 Glucose, Serum 99 mg/dL 65-99 BUN 13 mg/dL 8-27 Creatinine, Serum 0.73 mg/dL 0.57-1.00 eGFR If NonAfricn Am 88 mL/min/1.73 >59 eGFR If Africn Am 101 mL/min/1.73 >59 BUN/Creatinine Ratio 18 11-26 Sodium, Serum 143 mmol/L 134-144 Potassium, Serum 4.0 mmol/L 3.5-5.2 Chloride, Serum 100 mmol/L 96-106 Carbon Dioxide, Total 24 mmol/L 18-29 Calcium, Serum 9.5 mg/dL 8.7-10.3 Protein, Total, Serum 7.2 g/dL 6.0-8.5 Albumin, Serum 4.7 g/dL 3.6-4.8 Globulin, Total 2.5 g/dL 1.5-4.5 A/G Ratio 1.9 1.1-2.5 Bilirubin, Total 0.7 mg/dL 0.0-1.2 Alkaline Phosphatase, S 86 IU/L 39-117 AST (SGOT) 21 IU/L 0-40 ALT (SGPT) 22 IU/L 0-32 Lipid Panel - 05/08/16 10:34 Cholesterol, Total 149 mg/dL 100-199 Triglycerides 313 mg/dL 0-149 HDL Cholesterol 34 mg/dL >39 VLDL Cholesterol Dillon 63 mg/dL 5-40 LDL Cholesterol Calc 52 mg/dL 0-99 TSH+Free T4 - 09/15/16 12:46 TSH 1.020 uIU/mL 0.450-4.500 T4,Free(Direct) 1.37 ng/dL 0.82-1.77 CBC With Differential/Platelet - 09/15/16 12:46 WBC 8.1 x10E3/uL 3.4-10.8 RBC 4.59 x10E6/uL 3.77-5.28 Hemoglobin 13.6 g/dL 11.1-15.9 Hematocrit 42.2 % 34.0-46.6 MCV 92 fL 79-97 MCH 29.6 pg 26.6-33.0 MCHC 32.2 g/dL 31.5-35.7 RDW 13.8 % 12.3-15.4 Platelets 260 x10E3/uL 150-379 Neutrophils 65 % Lymphs 28 % Monocytes 6 % Eos 1 % Basos 0 % Neutrophils (Absolute) 5.2 x10E3/uL 1.4-7.0 Lymphs (Absolute) 2.3 x10E3/uL 0.7-3.1 Monocytes(Absolute) 0.5 x10E3/uL 0.1-0.9 Eos (Absolute) 0.1 x10E3/uL 0.0-0.4 Baso (Absolute) 0.0 x10E3/uL 0.0-0.2 Immature Granulocytes 0 % Immature Grans (Abs) 0.0 x10E3/uL 0.0-0.1 Comp. Metabolic Panel (14) - 09/15/16 12:46 Glucose, Serum 93 mg/dL 65-99 BUN 13 mg/dL 8-27 Creatinine, Serum 0.72 mg/dL 0.57-1.00 eGFR If NonAfricn Am 89 mL/min/1.73 >59 eGFR If Africn Am 102 mL/min/1.73 >59 BUN/Creatinine Ratio 18 12-28 Sodium, Serum 146 mmol/L 134-144 Potassium, Serum 4.3 mmol/L 3.5-5.2 Chloride, Serum 101 mmol/L 96-106 Carbon Dioxide, Total 24 mmol/L 18-29 Calcium, Serum 9.8 mg/dL 8.7-10.3 Protein, Total, Serum 7.6 g/dL 6.0-8.5 Albumin, Serum 5.1 g/dL 3.6-4.8 Globulin, Total 2.5 g/dL 1.5-4.5 A/G Ratio 2.0 1.2-2.2 Bilirubin, Total 0.5 mg/dL 0.0-1.2 Alkaline Phosphatase, S 90 IU/L 39-117 AST (SGOT) 24 IU/L 0-40 ALT (SGPT) 35 IU/L 0-32 Lipid Panel - 09/15/16 12:46 Cholesterol, Total 142 mg/dL 100-199 Triglycerides 339 mg/dL 0-149 HDL Cholesterol 38 mg/dL >39 VLDL Cholesterol Dillon 68 mg/dL 5-40 LDL Cholesterol Calc 36 mg/dL 0-99 Rheumatoid Arthritis Factor - 09/15/16 12:46 RA Latex Turbid. 10.3 IU/mL 0.0-13.9 Sedimentation Rate-Westergren - 09/15/16 12:46 Sedimentation Rate-Westergren 10 mm/hr 0-40 Antinuclear Antibodies, IFA - 09/15/16 12:46 Antinuclear Antibodies, IFA Positive KRIS Staining Patterns - 09/15/16 12:46 Note: Comment Homogeneous Pattern 1:80 TSH - 02/03/17 12:11 TSH 1.14 mIU/L 0.40-4.50 TSH - 09/29/17 11:20 TSH 0.65 mIU/L 0.40-4.50 Automated blood complete blood count (hemogram) panel - 04/20/18 07:37 Blood leukocytes automated count (number/volume) 6.7 10*3/uL 4.3-11.0 Blood erythrocytes automated count (number/volume) 4.39 10*6/uL 4.35-5.85 Venous blood hemoglobin measurement (mass/volume) 13.2 g/dL 11.5-16.0 Blood hematocrit (volume fraction) 41 % 35-52 Automated erythrocyte mean corpuscular volume 92 [foz_us] 80-99 Automated erythrocyte mean corpuscular hemoglobin (mass per erythrocyte) 30 pg 25-34 Automated erythrocyte mean corpuscular hemoglobin concentration measurement ( mass/volume) 33 g/dL 32-36 Automated erythrocyte distribution width ratio 13.0 % 10.0-14.5 Automated blood platelet count (count/volume) 194 10*3/uL 130-400 Automated blood platelet mean volume measurement 10.9 [foz_us] 7.4-10.4 Comprehensive metabolic panel - 04/20/18 07:37 Serum or plasma sodium measurement (moles/volume) 142 mmol/L 135-145 Serum or plasma potassium measurement (moles/volume) 3.7 mmol/L 3.6-5.0 Serum or plasma chloride measurement (moles/volume) 105 mmol/L 98-107 Carbon dioxide 25 mmol/L 21-32 Serum or plasma anion gap determination (moles/volume) 12 mmol/L 5-14 Serum or plasma urea nitrogen measurement (mass/volume) 13 mg/dL 7-18 Serum or plasma creatinine measurement (mass/volume) 0.77 mg/dL 0.60-1.30 Serum or plasma urea nitrogen/creatinine mass ratio 17 NRG Serum or plasma creatinine measurement with calculation of estimated glomerular filtration rate > NRG Serum or plasma glucose measurement (mass/volume) 92 mg/dL 70-105 Serum or plasma calcium measurement (mass/volume) 9.1 mg/dL 8.5-10.1 Serum or plasma total bilirubin measurement (mass/volume) 0.8 mg/dL 0.1-1.0 Serum or plasma alkaline phosphatase measurement (enzymatic activity/volume) 66 U/L 40-136 Serum or plasma aspartate aminotransferase measurement (enzymatic activity/ volume) 16 U/L 5-34 Serum or plasma alanine aminotransferase measurement (enzymatic activity/volume ) 14 U/L 0-55 Serum or plasma protein measurement (mass/volume) 7.3 g/dL 6.4-8.2 Serum or plasma albumin measurement (mass/volume) 4.6 g/dL 3.2-4.5 Lipid 1996 panel - 04/20/18 07:37 Serum or plasma triglyceride measurement (mass/volume) 191 mg/dL <150 Serum or plasma cholesterol measurement (mass/volume) 127 mg/dL < 200 Serum or plasma cholesterol in HDL measurement (mass/volume) 40 mg/ dL 40-60 Cholesterol in LDL [mass/volume] in serum or plasma by direct assay 49 mg/dL 1-129 Serum or plasma cholesterol in VLDL measurement (mass/volume) 38 mg/ dL 5-40 PT panel in platelet poor plasma by coagulation assay - 04/20/18 07:37 Prothrombin time (PT) in platelet poor plasma by coagulation assay 12.6 s 12.2-14.7 INR in platelet poor plasma or blood by coagulation assay 0.9 0.8-1.4 Activated partial thromboplastin time (aPTT) in platelet poor plasma bycoagulation assay - 04/20/18 07:37 Activated partial thromboplastin time (aPTT) in platelet poor plasma bycoagulation assay 28 s 24-35 Encounters ACCT No. Visit Date/Time Discharge Status Pt. Type Provider Facility Loc./Unit Complaint [id number] 02/20/2014 11:15:00 02/20/2014 23:59:59 CLS Outpatient HARITHA CHAMPION DO [id number] 11/07/2013 10:26:00 11/07/2013 23:59:59 CLS Outpatient HARITHA CHAMPION DO [id number] 06/30/2012 12:48:00 06/30/2012 23:59:59 CLS Outpatient HARITHA CHAMPION DO [id number] 06/02/2012 09:43:00 06/02/2012 23:59:59 CLS Outpatient HARITHA CHAMPION DO [id number] 04/28/2012 12:50:00 04/28/2012 23:59:59 CLS Outpatient HARITHA CHAMPION DO [id number] 03/23/2012 13:22:00 03/23/2012 23:59:59 CLS Outpatient HARITHA CHAMPION DO [id number] 03/11/2012 15:49:00 03/11/2012 23:59:59 [place] [id number] 02/04/2012 12:48:00 02/04/2012 23:59:59 [place] [id number] 04/14/2018 09:30:00 04/14/2018 23:59:59 [facility] [id number] 09/29/2017 10:40:00 Document Registration [id number] 02/03/2017 11:20:00 Document Registration [id number] 05/09/2016 09:09:00 Document Registration [id number] 09/16/2016 18:08:00 Document Registration [id number] 07/09/2015 10:01:00 07/09/2015 12:00:00 DIS Outpatient ROCIO MON MD [facility] WOUNDCARE [id number] 07/02/2015 11:40:00 07/02/2015 23:59:59 CLS Outpatient ROCIO MON MD [facility] RAD VENOUS ULCER L CALF, VENOUS INSUFFICIENCY [id number] 11/16/2013 10:23:00 11/16/2013 23:59:59 CLS Outpatient HARITHA CHAMPION DO [facility] RAD SCREENING [id number] 08/10/2012 10:05:00 11/08/2012 00:01:00 DIS Outpatient ARLENE CASTRO MD [facility] ONC [id number] 04/20/2018 07:02:00 ACT Outpatient MOHSEN DE LEON FACC, EDDIE SANTO CCDS [facility] CATH ANGINA,SOB,ABN EKG,HTN [id number] 05/31/2015 08:25:00 Document Registration [id number] 11/09/2012 00:00:00 Document Registration [id number] 08/15/2010 05:33:00 Document Registration [id number] 08/08/2010 09:04:00 Document Registration [id number] 06/26/2010 10:03:00 Document Registration [id number] 06/14/2010 14:56:00 Document Registration
--- NOTE | 2018-04-20 09:14 | Cardiac Procedure Note-CS/ASA ---
Pre-Procedure Note Pre-Op Procedure Note H&P Reviewed The H&P was reviewed, patient examined and no changes noted. Date H&P Reviewed: Apr 20, 2018 Time H&P Reviewed: 08:40 Conscious Sedation Pre-Proced Time 08:40 ASA Score 3 For ASA 3 and 4: Consider anesthesia and medical clearance. Also, for patients with a history of failed moderate sedation consider anesthesia. Airway Lungs Heart ASA score ASA 1: a normal healthy patient ASA 2: a patient with a mild systemic disease (mid diabetes, controlled hypertension, obesity ASA 3: a patient with a severe systemic disease that limits activity (angina , COPD, prior Myocardial infarction) ASA 4: a patient with an incapacitating disease that is a constant threat to life (CHF, renal failure) ASA 5: a moribund patient not expected to survive 24 hrs. (ruptured aneurysm) ASA 6: a declared brain patient whose organs are being harvested. For emergent operations, add the letter E after the classification Mallampati Classification Grade 2 Sedation Plan Analgesia, Amnesia, Plan communicated to team members, Discussed options with patient/fam, Discussed risks with patient/fam The patient is an appropriate candidate to undergo the planned procedure, sedation, and anesthesia. The patient immediately re-assessed prior to indication. EDDIE CONNOLLY MD FACP FAC CCDS Apr 20, 2018 09:14
[2018-04-20] MEDS ORDERED: PATIENT MAY USE OWN MEDS, ALL PO SCH (09:15)
--- NOTE | 2018-04-20 09:17 | Discharge Inst-Cardiology ---
Discharge Inst-Cardiac Discharge Medications Continued Medications: Acetaminophen (Arthritis Pain Relief) 650 Mg Tablet.er 1300 MG PO DAILY, TAB Aspirin (Aspirin EC) 81 Mg Tablet.dr 81 MG PO HS, TAB Atorvastatin Calcium (Atorvastatin Calcium) 40 Mg Tablet 40 MG PO DAILY, TAB Biotin (Biotin) 10,000 Mcg Capsule 91104 MCG PO DAILY, CAP Colestipol HCl (Colestipol HCl) 1 Gm Tablet 2 GM PO DAILY, TAB Fexofenadine HCl (Allergy Relief) 180 Mg Tablet 180 MG PO BID, TAB Levothyroxine Sodium (Levothyroxine Sodium) 112 Mcg Tablet 112 MCG PO DAILY, TAB Lisinopril/Hydrochlorothiazide (Lisinopril-Hctz 20-25 mg Tab) 1 Each Tablet 1 EACH PO EVERY OTHER DAY, TAB IS SUPPOSED TO TAKE 1/2 TABLET DAILY, PILL NOT SCORED AND UNABLE TO BREAK IN HALF, IS TAKING ONE FULL TABLET EVERY OTHER DAY Multivitamins (Multivitamins) 1 Each Capsule 1 EACH PO DAILY Jermyn 3 Polyunsat Fatty Acids (Fish Oil) 1,000 Mg Cap 1000 MG PO BID Ranitidine HCl (Acid Dye Range Operator Cloth (RANITIDINE)) 150 Mg Tablet 150 MG PO HS, TAB Sertraline HCl (Sertraline HCl) 25 Mg Tablet 25 MG PO DAILY, TAB Solifenacin Succinate (Vesicare) 5 Mg Tablet 5 MG PO DAILY, TAB Discontinued Medications: Ibuprofen (Ibuprofen) 200 Mg Capsule 400 MG PO HS, EDDIE HOLDER MD FACP FAC CCDS Apr 20, 2018 09:17
--- NOTE | 2018-04-20 09:18 | Discharge Inst-Post CATH ---
Discharge Inst-CATH/EP Post Cardiac Cath/EP D/C Inst Follow Up/Plan F/u with Dr Boo in 2 weeks CARDIAC CATH DISCHARGE INSTRUCTIONS *Hold Metformin for 48 hours post heart cath. ACTIVITY * Go Home directly and rest. * Limit activity of the leg (or wrist if it was used) for 7 days including aerobics, swimming, jogging, bicycling, etc. * Restrict stair-climbing for 7 days if possible, if not, climb up with your non -cath leg, then bring together on the same step. * Avoid lifting, pushing, pulling or excessive movement of the affected extremity for 7 days. * Customary sexual activity may be resumed after 2 days-use caution not to use a position that strains or causes pain to the affected extremity. * No driving for 24 hours. * NO SMOKING. * Avoid straining for bowel movements for 7 days. * Gentle walking on level ground is allowed. * Returning to work will depend on the type of procedure and the results. Your doctor will discuss this with you. CALL YOUR DOCTOR FOR ANY OF THE FOLLOWING: *If bleeding from the puncture site occurs- Apply gentle pressure to site with clean cloth and call your doctor or EMS. * If a knot or lump forms under the skin, increases in size, or causes pain. * If bruising appears to be worsening or moving further down your leg instead of disappearing. * Temperature above 101 F. CARE OF YOUR GROIN INCISION; * Bruising or purple discoloration of the skin near the puncture site is common. * You may shower only, no bathtub bathing for 5 days. Be careful to avoid slipping as your leg may feel stiff. * If a closure device was used on your femoral artery, please see the attached guide regarding care of the device and your leg. * Leave the dressing on, until removed by office staff. CARE OF YOUR WRIST INCISION; * Bruising or purple discoloration of the skin near the puncture site is common. * You may shower. * DO NOT submerge wrist. * Leave dressing on, until removed by office staff.. EDDIE BOO MD [facility] CCDS Apr 20, 2018 09:18
--- NOTE | 2018-04-20 09:54 | CARDIAC CATHETERIZATION ---
DATE OF SERVICE: 04/20/2018 CARDIAC CATHETERIZATION REPORT INDICATION: The patient is a 67-year-old lady, who has multiple coronary artery disease risk factors and who has had symptoms of new onset angina. Cardiac catheterization was carried out today after having obtained an informed consent. PROCEDURE IN DETAIL: She was brought to the cardiac catheterization laboratory in a fasting state. Right groin was prepared and draped in the usual sterile fashion. Lidocaine 1% was used for local anesthesia. Modified Seldinger technique was used to advance a 5-Sudanese sheath into the right femoral artery. A 5-Sudanese JL3.5 catheter was used for left coronary angiography. A 5-Sudanese JR4 catheter for right coronary angiography. A 5-Sudanese pigtail catheter was used for left heart catheterization and left ventricular coronary angiography. A 5-Sudanese pigtail catheter was placed at the aortic arch and aortic arch angiography was performed. The pigtail catheter was removed. Angiography of the right femoral artery was carried out through the sheath. Mynx was used to achieve hemostasis. She tolerated the procedure well. HEMODYNAMICS: Left ventricular end-diastolic pressure following coronary angiography was 18 mmHg. There was no significant pressure gradient on pullback across the aortic valve. Ascending aortic pressure was 161/94 with a mean of 125 mmHg. CORONARY ANGIOGRAPHY: Left main coronary artery is free of significant disease. The left anterior descending, left circumflex, right coronary arteries are free of angiographically significant disease. Right coronary artery is dominant. LEFT VENTRICULAR CORONARY ANGIOGRAPHY: Left ventricular coronary angiography was carried out in the right anterior oblique projection. Global left ventricular systolic function was normal. No regional wall motion marked at the scene. Left ventricular ejection fraction is 60 to 65%. There does not appear to be significant mitral regurgitation. AORTIC ARCH ANGIOGRAPHY: Aortic arch angiography did not indicate any significant thoracic aortic aneurysm or dissection. Mild calcification of the aortic arch is seen. The neck arteries, to the extent visualized, do not exhibit significant disease. CONCLUSIONS: 1. No angiographically significant coronary artery disease. 2. Mild to moderate calcification of the aortic knob. 3. Normal global left ventricular systolic function with ejection fraction approximately 60 to 65%. 4. Mild to moderate elevation of left ventricular end-diastolic pressure. DISCUSSION AND RECOMMENDATIONS: Based on results of the study, it appears appropriate to continue a conservative approach. She has hypertension with apparent hypertensive cardiovascular disease, given elevated left ventricular end-diastolic pressure. Focus on risk factor modification was advised, including good control of blood pressure. Outpatient followup is advised. Job ID: [id number] DocumentID: [id number] Dictated Date: 04/20/2018 09:06:28 [place] Date: 04/20/2018 09:53:37 Dictated By: EDDIE CONNOLLY MD, MA, FACP, FACC,
== END 2018-04-20 12:25 | disposition home or self-care (01) ==
LOC: CATH 07:02 → SDC 09:26 → CATH 12:25
PROVIDERS: ATTEND Internal Medicine Cardiovascular Disease
DX: I20.8 Other forms of angina pectoris (principal); R06.09 Other forms of dyspnea; I70.0 Atherosclerosis of aorta; I10 Essential (primary) hypertension; E78.5 Hyperlipidemia, unspecified; M79.89 Other specified soft tissue disorders; E03.9 Hypothyroidism, unspecified; K58.9 Irritable bowel syndrome, unspecified; Z79.82 Long term (current) use of aspirin; Z79.899 Other long term (current) drug therapy
CPT/HCPCS: 36221; 36415; 80053; 80061; 85027; 85610; 85730; 87081; 93458